=== PATIENT | male | born 1950 | race African-American/Black ===

== ENCOUNTER 2016-09-05 03:53 | Inpatient (IN) | payer BC ==
[2016-09-05] VITALS (19 sets, daily range): BP systolic 110–135; BP diastolic 69–88; PULSE 58–81; TEMP 36.6–36.8; O2SAT 95–98; Ht 177.8 cm; Wt 99.6 kg
[~2016-09-05] VITALS: Ht 177.8 cm; Wt 99.6 kg
[~2016-09-05 03:53] MED LIST: FEXO1TAB46 PO; OMEP20CA9 PO; PRD20 PO
[2016-09-05] MEDS ORDERED: ASPIRIN 81 MG CHEW PO STA (04:04)
[2016-09-05] MEDS ORDERED: NITROGLYCERIN 0.4 MG SL PER TAB CHARGE SL STA (04:04)
[2016-09-05] MEDS ORDERED: ASPIRIN 324 MG CHEW ONE (04:05)
[2016-09-05] MEDS ORDERED: NITROGLYCERIN 0.4 MG SL PER TAB CHARGE ONE (04:05)
[2016-09-05 04:18] LABS: BASO % 0.7 %; BASO ABS # 0.03 K/uL (0-0.2); COMPLETE YES; EOS % 5.2 %; HEMATOCRIT 49.8 % (42-52); IG% 0.7 %; LYMPH % 48.5 %; LYMPH ABS # 2.23 K/uL (1.2-3.4); MEAN CELL VOLUME 94.1 fL (80-100); MEAN CORPUSCULAR HEMOGLOBIN 31.6 pg (25-34); MEAN CORPUSCULAR HGB CONC 33.5 g/dl (32-36); MEAN PLATELET VOLUME 10.4 fL (7.4-10.4); MONO % 8.7 %; NEUT % 36.2 %; PLATELET COUNT 238 K/uL (130-400); RED BLOOD COUNT 5.29 M/uL (4.7-6.1)
[2016-09-05 04:27] LABS: ISTAT CREATININE 1.4 mg/dl (0.6-1.3); ISTAT HEMOGLOBIN 16.7 g/dl (14.0-18.0); ISTAT IONIZED CALCIUM 1.15 mmol/l (1.12-1.32)
[2016-09-05] MEDS ORDERED: NITROGLYCERIN OINT 2% 1GM PACKET EXT ONE (04:30)
[2016-09-05 04:35] LABS: BUN/CREATININE RATIO 9.9 (10-20); CREATININE 1.3 mg/dl (0.60-1.40); POTASSIUM 3.7 mmol/L (3.5-5.1)
[2016-09-05] MEDS ORDERED: FEXO1TAB58 PO (04:38)
[2016-09-05] MEDS ORDERED: PRLSR20 PO (04:38)
--- NOTE | 2016-09-05 04:39 | EMERGENCY ROOM VISIT NOTE ---
ED Visit Note First contact with patient: 03:58 Patient seen by me with the physician virtual assistant at 4:25 AM. Patient has EKG changes and evolution with chest pain that has decreased. Reportedly the patient's had chest pain all week. Patient has an elevated troponin 0.59. We have activated A heart alert and the physician virtual assistant has spoken with the instructor physical education. Patient has received aspirin prior and has been given nitroglycerin. Patient will need admitted for acute coronary syndrome and suspected STEMI in evolution Allergies Coded Allergies: No Known Allergies (Unverified , 09/05/16) Vital Signs Date Time Temp Pulse Resp B/P Pulse Ox O2 Delivery O2 Flow Rate FiO2 09/05/16 04:20 Room Air 09/05/16 04:16 Room Air 09/05/16 04:14 Room Air 09/05/16 03:55 36.4 64 20 172/99 97 Room Air Laboratory Results 09/05/16 04:05 Red Blood Count 5.29, Mean Corpuscular Volume 94.1, Mean Corpuscular Hemoglobin 31.6, Mean Corpuscular Hemoglobin Concent 33.5, Mean Platelet Volume 10.4, Neutrophils (%) (Auto) 36.2, Lymphocytes (%) (Auto) 48.5, Monocytes (%) (Auto) 8.7, Eosinophils (%) (Auto) 5.2, Basophils (%) (Auto) 0.7, Neutrophils # (Auto) 1.67, Lymphocytes # (Auto) 2.23, Monocytes # (Auto) 0.40, Eosinophils # (Auto) 0.24, Basophils # (Auto) 0.03 09/05/16 04:05 Test 09/05/16 04:05 09/05/16 04:10 09/05/16 04:15 White Blood Count 4.60 K/uL (4.8-10.8) Red Blood Count 5.29 M/uL (4.7-6.1) Hemoglobin 16.7 g/dL (14.0-18.0) Hematocrit 49.8 % (42-52) Mean Corpuscular Volume 94.1 fL (80-100) Mean Corpuscular Hemoglobin 31.6 pg (25-34) Mean Corpuscular Hemoglobin Concent 33.5 g/dl (32-36) Platelet Count 238 K/uL (130-400) Mean Platelet Volume 10.4 fL (7.4-10.4) Neutrophils (%) (Auto) 36.2 % Lymphocytes (%) (Auto) 48.5 % Monocytes (%) (Auto) 8.7 % Eosinophils (%) (Auto) 5.2 % Basophils (%) (Auto) 0.7 % Neutrophils # (Auto) 1.67 K/uL (1.4-6.5) Lymphocytes # (Auto) 2.23 K/uL (1.2-3.4) Monocytes # (Auto) 0.40 K/uL (0.11-0.59) Eosinophils # (Auto) 0.24 K/uL (0-0.5) Basophils # (Auto) 0.03 K/uL (0-0.2) RDW Standard Deviation 45.1 fL (36.4-46.3) RDW Coefficient of Variation 13.2 % (11.5-14.5) Immature Granulocyte % (Auto) 0.7 % Immature Granulocyte # (Auto) 0.03 K/uL (0.00-0.02) Est Creatinine Clear Calc Drug Dose 67.4 ml/min Estimated GFR () 66.8 Estimated GFR (Non- 57.7 BUN/Creatinine Ratio 9.9 (10-20) Calcium Level 9.0 mg/dl (8.5-10.1) Direct Bilirubin 0.1 mg/dl (0-0.2) Aspartate Amino Transf (AST/SGOT) 21 U/L (15-37) Alanine Aminotransferase (ALT/SGPT) 32 U/L (12-78) Albumin 4.1 gm/dl (3.4-5.0) Lipase 136 U/L (73-393) Bedside Troponin I 0.590 ng/ml (0-0.045) Bedside Hemoglobin 16.7 g/dl (14.0-18.0) Bedside Hematocrit 49 % (42-52) Bedside Sodium 143 mEq/L (135-144) Bedside Potassium 3.6 mEq/L (3.3-5.0) Bedside Chloride 103 mEq/L (101-112) Bedside Total CO2 25 mEq/l (24-31) Anion Gap 19.0 mmol/L (16-25) Bedside Blood Urea Nitrogen 13 mg/dl (7-18) Bedside Creatinine 1.4 mg/dl (0.6-1.3) Bedside Glucose (other) 115 mg/dl (70-99) Bedside Ionized Calcium (Gautam) 1.15 mmol/l (1.12-1.32) Medications Administered Medications (Trade) Dose Ordered Sig/Leia Route Start Time Stop Time Status Last Admin Dose Admin Nitroglycerin (Nitrostat Tab) 0.4 mg NOW STAT SL 09/05/16 04:04 09/05/16 04:06 DC 09/05/16 04:11 0.4 MG Aspirin (Aspirin Chew) 324 mg STK-MED ONCE .ROUTE 09/05/16 04:05 09/05/16 04:06 DC 09/05/16 04:11 324 MG Departure Information Referrals Eric Olivo D.O. (PCP) Forms IMPORTANT VISIT INFORMATION Patient Instructions My [facility]
[2016-09-05] MEDS ORDERED: NiCARDipine HCL INJ 2.5 MG/ML 10 ML AMP ONE (05:01)
[2016-09-05] MEDS ORDERED: FENTANYL CITRATE INJ 50 MCG/1 ML 2 ML VIAL ONE (05:01)
[2016-09-05] MEDS ORDERED: HEPARIN SOD (PORCINE) 1000 UNIT/ML 10 ML VIAL ONE (05:02)
[2016-09-05] MEDS ORDERED: MIDAZOLAM HCL 1 MG/ML 2ML VIAL ONE (05:02)
--- NOTE | 2016-09-05 05:09 | EMERGENCY ROOM VISIT NOTE ---
History First contact with patient: 03:58 Chief Complaint: CARDIAC ASSESSMENT Stated Complaint: LFT ARM HURTS,THREW UP,HEARTBURN,NOT FELT WELL XWK Nursing Triage Summary: Pt woke up at 2 am with heart burn and pain down left arm. Pt also vomited x1. History of Present Illness The patient is a 66 year old male who presents to the Emergency Room with complaints of epigastric discomfort that has been intermittent for the past week that woke him up out of bed with nausea and vomiting and left arm pain. He describes the pain as heartburn, 5 out of 10. Nothing makes it better or worse. Patient denies dyspnea, abdominal pain, leg pain or swelling, recent travel, prior heart disease. No recent stress test or echo. No family history of heart disease. Patient smokes a pipe daily and occasionally drinks. He last ate last night at 8 PM. Review of Systems See HPI for pertinent positives & negatives. A total of 10 systems reviewed and were otherwise negative. Past Medical/Surgical History Medical Problems: (1) No Known Active Medical Problems GERD, seasonal allergies Family History Cancer Diabetes mellitus Heart disease Hypertension Kidney disease Social History Smoking Status: Current Every Day Smoker Alcohol Use: occasionally Marital Status: Housing Status: lives with family Occupation Status: employed Current/Historical Medications Scheduled Fexofenadine-Pseudoephedrine (Summer-D 24 Hour Allergy), 1 TAB PO DAILY Omeprazole (Prilosec), 20 MG PO BID Allergies Coded Allergies: No Known Allergies (Unverified , 09/05/16) Physical Exam Vital Signs Date Time Temp Pulse Resp B/P Pulse Ox O2 Delivery O2 Flow Rate FiO2 09/05/16 05:00 113/74 09/05/16 04:55 117/67 09/05/16 04:53 69 18 94 Nasal Cannula 2.0 09/05/16 04:50 102/65 09/05/16 04:45 88/57 09/05/16 04:40 90/61 09/05/16 04:23 77 18 95 Nasal Cannula 2.0 09/05/16 04:20 Room Air 09/05/16 04:16 Room Air 09/05/16 04:14 Room Air 09/05/16 04:12 146/100 09/05/16 03:55 36.4 64 20 172/99 97 Room Air Physical Exam VITALS: Vitals are noted on the nurse's note and reviewed by myself. Vital signs hypertensive GENERAL: Pleasant male who appears in mild distress, diaphoretic SKIN: The skin was without rashes, erythema, edema, or bruising. There is no tenting of the skin. Capillary reflex less than 2 seconds. HEAD: Normocephalic atraumatic. EARS: External auditory canals clear, tympanic membranes pearly rodriguez without erythema or effusion bilaterally. EYES: Pupils equal round and reactive to light and accommodation. Conjunctivae without injection, sclerae without icterus. Extraocular movements intact. NOSE: Patent, turbinates without inflammation or discharge. MOUTH: Mucous membranes moist. Pharynx without erythema or exudate. Uvula midline. Airway patent. Tongue does not deviate. NECK: Supple without nuchal rigidity. No lymphadenopathy. No thyromegaly. Cervical spine is nontender. No JVD. HEART: Regular rate and rhythm without murmurs gallops or rubs. LUNGS: Clear to auscultation bilaterally without wheezes, rales or rhonchi. No dullness to percussion. No retractions or accessory muscle use. ABDOMEN: Positive bowel sounds x 4. Normal tympanic percussion. Soft, nontender, without masses or organomegaly. Baron sign negative. No guarding or rebound tenderness. MUSCULOSKELETAL: No muscle atrophy, erythema, or edema noted. NEURO: Patient was alert and oriented to person place and time. Normal sensation to light and sharp touch. No focal neurological deficits. Medical Decision & Procedures Laboratory Results 09/05/16 04:05 Red Blood Count 5.29, Mean Corpuscular Volume 94.1, Mean Corpuscular Hemoglobin 31.6, Mean Corpuscular Hemoglobin Concent 33.5, Mean Platelet Volume 10.4, Neutrophils (%) (Auto) 36.2, Lymphocytes (%) (Auto) 48.5, Monocytes (%) (Auto) 8.7, Eosinophils (%) (Auto) 5.2, Basophils (%) (Auto) 0.7, Neutrophils # (Auto) 1.67, Lymphocytes # (Auto) 2.23, Monocytes # (Auto) 0.40, Eosinophils # (Auto) 0.24, Basophils # (Auto) 0.03 09/05/16 04:05 Test 09/05/16 04:05 09/05/16 04:10 09/05/16 04:15 White Blood Count 4.60 K/uL (4.8-10.8) Red Blood Count 5.29 M/uL (4.7-6.1) Hemoglobin 16.7 g/dL (14.0-18.0) Hematocrit 49.8 % (42-52) Mean Corpuscular Volume 94.1 fL (80-100) Mean Corpuscular Hemoglobin 31.6 pg (25-34) Mean Corpuscular Hemoglobin Concent 33.5 g/dl (32-36) Platelet Count 238 K/uL (130-400) Mean Platelet Volume 10.4 fL (7.4-10.4) Neutrophils (%) (Auto) 36.2 % Lymphocytes (%) (Auto) 48.5 % Monocytes (%) (Auto) 8.7 % Eosinophils (%) (Auto) 5.2 % Basophils (%) (Auto) 0.7 % Neutrophils # (Auto) 1.67 K/uL (1.4-6.5) Lymphocytes # (Auto) 2.23 K/uL (1.2-3.4) Monocytes # (Auto) 0.40 K/uL (0.11-0.59) Eosinophils # (Auto) 0.24 K/uL (0-0.5) Basophils # (Auto) 0.03 K/uL (0-0.2) RDW Standard Deviation 45.1 fL (36.4-46.3) RDW Coefficient of Variation 13.2 % (11.5-14.5) Immature Granulocyte % (Auto) 0.7 % Immature Granulocyte # (Auto) 0.03 K/uL (0.00-0.02) Est Creatinine Clear Calc Drug Dose 67.4 ml/min Estimated GFR () 66.8 Estimated GFR (Non- 57.7 BUN/Creatinine Ratio 9.9 (10-20) Calcium Level 9.0 mg/dl (8.5-10.1) Total Bilirubin 0.4 mg/dl (0.2-1) Direct Bilirubin 0.1 mg/dl (0-0.2) Aspartate Amino Transf (AST/SGOT) 21 U/L (15-37) Alanine Aminotransferase (ALT/SGPT) 32 U/L (12-78) Alkaline Phosphatase 60 U/L (45-117) Total Protein 7.5 gm/dl (6.4-8.2) Albumin 4.1 gm/dl (3.4-5.0) Lipase 136 U/L (73-393) Bedside Troponin I 0.590 ng/ml (0-0.045) Bedside Hemoglobin 16.7 g/dl (14.0-18.0) Bedside Hematocrit 49 % (42-52) Bedside Sodium 143 mEq/L (135-144) Bedside Potassium 3.6 mEq/L (3.3-5.0) Bedside Chloride 103 mEq/L (101-112) Bedside Total CO2 25 mEq/l (24-31) Anion Gap 19.0 mmol/L (16-25) Bedside Blood Urea Nitrogen 13 mg/dl (7-18) Bedside Creatinine 1.4 mg/dl (0.6-1.3) Bedside Glucose (other) 115 mg/dl (70-99) Bedside Ionized Calcium (Gautam) 1.15 mmol/l (1.12-1.32) Medications Administered Medications (Trade) Dose Ordered Sig/Leia Route Start Time Stop Time Status Last Admin Dose Admin Nitroglycerin (Nitrostat Tab) 0.4 mg NOW STAT SL 09/05/16 04:04 09/05/16 04:06 DC 09/05/16 04:11 0.4 MG Aspirin (Aspirin Chew) 324 mg STK-MED ONCE .ROUTE 09/05/16 04:05 09/05/16 04:06 DC 09/05/16 04:11 324 MG ED Course Prior records/ancillary studies reviewed. Triage Nursing notes reviewed. Additional history obtained from family. The patient's history was concerning for chest pain. Differential diagnosis: Etiologies such as cardiac ischemia, aortic dissection, pulmonary embolism, pneumonia, pneumothorax, musculoskeletal, infections, pericarditis, myocarditis , esophageal rupture, gastrointestinal, as well as others were entertained. Physical examination: As above. ER treatment provided: Aspirin, nitroglycerin On reassessment the patient felt better. Diagnostic interpretation by me: The electrocardiogram was ST elevation in the anteroseptal leads with repeat EKG with well and sign concerning for wellens signs and evolving AK and heart alert was initiated The labs revealed elevated troponin. Creatinine 1.3 Imaging studies: Chest x-ray no acute consolidation, pneumothorax or free air per my interpretation Consultation: A consultation was placed with the product safety expert, Dr. Madden while we are awaiting the 3rd EKG and recommends heart alert and this was initiated hospitalist. The case was discussed and diagnostics were reviewed. Heart alert was initiated. Dr. Lafleur came in and evaluated the patient and took him to the [facility]. Exam and history seem consistent with STEMI. Patient was given aspirin nitroglycerin. His pain somewhat improved. Blood pressure improved. Patient is agreeable to treatment plan of cutting His dictation. He states that need to be transferred he would like to go to [facility]. No recent surgeries. Last ate at 8 PM. No drug allergies. He is a full code. Patient does smoke a pipe and drinks occasional alcohol.By the evaluation outlined above emergent etiologies such as aortic dissection, pulmonary embolism, pneumonia, pneumothorax, infections, pericarditis, myocarditis, gastrointestinal , as well as others were deemed relatively unlikely. Patient was reassessed multiple times. He remained stable throughout his stay. Pacer pads were placed. The pt informed about the findings as listed above. All questions were answered and pleased with the treatment. Case reviewed with my attending. Medical Decision as above Impression Primary Impression: STEMI (ST elevation myocardial infarction) Critical Care I have personally spent greater than 60 minutes of critical care time in the direct management of this patient. This includes bedside care, interpretation of diagnostic studies, and testing, discussion with consultants, patient, and family members, and other required patient management activities. This 30 minutes is in excess of all separately billable procedures. Departure Information Dispostion Being Evaluated By Surgeon Condition FAIR Referrals Eric Olivo D.O. (PCP) Forms IMPORTANT VISIT INFORMATION Patient Instructions My [facility] Problem Qualifiers Primary Impression: STEMI (ST elevation myocardial infarction) Involved coronary artery: unspecified coronary artery Qualified Codes: I21.3 - ST elevation (STEMI) myocardial infarction of unspecified site
[2016-09-05] MEDS ORDERED: EPTIFIBATIDE 0.75 MG/ML 75MG VIAL IV ONE (06:18)
[2016-09-05] MEDS ORDERED: EPTIFIBATIDE 2 MG/ML 10 ML VIAL IV ONE (06:18)
[2016-09-05] MEDS ORDERED: CLOPIDOGREL BISULFATE 300 MG TAB PO ONE (06:19)
[2016-09-05] MEDS ORDERED: PANTOprazole SOD 40 MG TAB PO STA (06:41)
[2016-09-05] MEDS ORDERED: EPTIFIBATIDE BOLUS / DRIP IV ONE (06:45)
[2016-09-05] MEDS ORDERED: LORAZEPAM INJ 0.5 MG in SYRINGE 0 ML IV PRN (06:45)
[2016-09-05] MEDS ORDERED: MoRPHine SULFATE 2 MG/ML CARP IV PRN (06:45)
[2016-09-05] MEDS ORDERED: ATROPINE SULFATE 0.1 MG/ML 5ML SYR IV PRN (06:45)
[2016-09-05] MEDS ORDERED: ACETAMINOPHEN 325 MG TAB PO PRN ×2 (06:45→07:00)
[2016-09-05] MEDS ORDERED: ONDANSETRON INJ 2 MG/ML 2 ML VIAL IV PRN (06:45)
[2016-09-05] MEDS ORDERED: NITROGLYCERIN 0.4 MG SL PER TAB CHARGE SL PRN (07:00)
[2016-09-05] MEDS ORDERED: LORAZEPAM 2 MG/ML 1 ML VIAL IV PRN (07:00)
[2016-09-05] MEDS: SODIUM CHLORIDE 0.9% 1000ML 1,000 ML IV SCH ×2 (07:06→17:03)
--- NOTE | 2016-09-05 07:09 | DIAGNOSTIC IMAGING REPORT ---
CHEST ONE VIEW PORTABLE CLINICAL HISTORY: CHEST PAIN dyspnea COMPARISON STUDY: No previous studies for comparison. FINDINGS: The bones soft tissues and hemidiaphragms are normal. The cardiomediastinal silhouette is normal. The lungs are clear. The pulmonary vasculature is normal. IMPRESSION: Negative chest. Electronically signed by: Jatin Wayne M.D. 09/05/2016 7:07 AM Dictated Date/Time: 09/05/2016 7:07 AM
--- NOTE | 2016-09-05 07:17 | Procedure Note ---
Pre-Mod Sedation Assessment General Date of Moderate Sedation: September 05, 2016. Vital Signs: Vital Signs Past 12 Hours Date Time Temp Pulse Resp B/P Pulse Ox O2 Delivery O2 Flow Rate FiO2 09/05/16 07:00 66 18 110/75 97 Room Air 09/05/16 06:45 71 14 117/77 96 Room Air 09/05/16 06:29 36.8 67 14 114/69 95 Room Air 09/05/16 06:20 70 16 125/73 95 Room Air 09/05/16 06:10 70 16 120/73 95 Room Air 09/05/16 05:00 113/74 09/05/16 04:55 117/67 09/05/16 04:53 69 18 94 Nasal Cannula 2.0 09/05/16 04:50 102/65 09/05/16 04:45 88/57 09/05/16 04:40 90/61 09/05/16 04:23 77 18 95 Nasal Cannula 2.0 09/05/16 04:20 Room Air 09/05/16 04:16 Room Air 09/05/16 04:14 Room Air 09/05/16 04:12 146/100 09/05/16 03:55 36.4 64 20 172/99 97 Room Air Review Cardiovascular: regular rate, rhythm, no edema, no gallop, no JVD, normal peripheral pulses Abdomen: normal bowel sounds, non tender Lungs: lungs clear Pre-Sedation Airway Assessment Oral Cavity: WNL Able to Visualize Vocal Cords: No Short Thick Neck: No Hx of Sleep Apnea: No Smoking Status: Current Every Day Smoker Mallampati Classification: Class III Procedure Planning Contraindications-for Mod Sed: None Yes Notes The planned sedation has been discussed with the patient and consent obtained. I have identified the patient, determined the appropriateness of sedation and have assessed the patient immediately prior to the procedure. All medicine(s) and interventions are by my order.
--- NOTE | 2016-09-05 07:17 | Procedure Note ---
Post-Mod Sedation Assessment General Date of Moderate Sedation September 05, 2016. Vital Signs: Vital Signs Past 12 Hours Date Time Temp Pulse Resp B/P Pulse Ox O2 Delivery O2 Flow Rate FiO2 09/05/16 07:00 66 18 110/75 97 Room Air 09/05/16 06:45 71 14 117/77 96 Room Air 09/05/16 06:29 36.8 67 14 114/69 95 Room Air 09/05/16 06:20 70 16 125/73 95 Room Air 09/05/16 06:10 70 16 120/73 95 Room Air 09/05/16 05:00 113/74 09/05/16 04:55 117/67 09/05/16 04:53 69 18 94 Nasal Cannula 2.0 09/05/16 04:50 102/65 09/05/16 04:45 88/57 09/05/16 04:40 90/61 09/05/16 04:23 77 18 95 Nasal Cannula 2.0 09/05/16 04:20 Room Air 09/05/16 04:16 Room Air 09/05/16 04:14 Room Air 09/05/16 04:12 146/100 09/05/16 03:55 36.4 64 20 172/99 97 Room Air Review - Discharge Criteria Vital Signs Stable: Yes Alert/Oriented/Conversant: Yes Returned to Baseline Mental St: Yes Nausea Absent/Minimal: Yes Pain/Discomfort/Absent/Minimal: Yes Normal/Baseline Respirations: Yes Active Bleeding?: No Pt Received D/C Instructions: N/A Prescriptions Given: None Specific Proced. D/C Criteria Distal Pulses Present (Cardiac: Yes Groin site assessed-Card Cath: N/A Voided Prior To Discharge: N/A Discharged Patients Adult Escort/Transportation: N/A
[2016-09-05 07:18] LABS: BASO % 0.4 %; BASO ABS # 0.02 K/uL (0-0.2); HEMATOCRIT 48.3 % (42-52); IG% 0.2 %; LYMPH % 17.4 %; LYMPH ABS # 0.94 K/uL (1.2-3.4); MEAN CELL VOLUME 93.6 fL (80-100); MEAN CORPUSCULAR HEMOGLOBIN 30.2 pg (25-34); MEAN PLATELET VOLUME 10.5 fL (7.4-10.4); PLATELET COUNT 238 K/uL (130-400); RED BLOOD COUNT 5.16 M/uL (4.7-6.1); WHITE BLOOD COUNT 5.41 K/uL (4.8-10.8)
[2016-09-05 07:24] LABS: COMPLETE YES; MEAN CORPUSCULAR HGB CONC 32.3 g/dl (32-36)
--- NOTE | 2016-09-05 07:25 | Cardiac Catheterization ---
Procedure Note Procedure Date September 05, 2016. Pre-Procedure Diagnosis STEMI AUC Score 9 Post-Procedure Diagnosis Severe CAD, Successful PCI, Decreased LV Systolic Function, Elevated Intracardiac Pressures Procedure(s) Performed Coronary Angiography, Left Heart Cath, PTCA, Drug Eluting Stent Jig Mill Operator Dr. Lafleur General Distillery Worker(s) LIZ Garvey Estimated Blood Loss 30 ml Medication(s) Clopidogrel (600 mg PO post PCI), Fentanyl, Heparin, Integrilin, Nicardipine ( intra arterial and intracoronary), Versed, Lidocaine 1% Summary of Findings Clinical indications: Acute anterior apical myocardial infarction on electrocardiogram. Catheterization site: 6 [place]ic glide sheath right radial artery. Equipment: 6 [place]ic EBU 3.75 guide catheter, 6 [place]ic JR4 diagnostic catheter, 6 [place]ic pigtail diagnostic catheter, XYZE [place] guidewire, Vedantu Whisper guidewire, XYZE Sprinter 2.5 x 12 millimeter balloon dilatation catheter, Medtronic Resolute integrity 3.5 x 18 millimeter drug-eluting stent. Protocol: Left coronary angiography was 1st performed using the guide catheter . This revealed a subtotal mid LAD occlusion. Intravenous heparin and Integrilin were administered. Therapeutic activated clotting time documented. It was 1st attempted to pass the [place] guidewire cross the severe mid LAD stenosis. This wire would not cross the stenosis. The stenosis was successfully crossed using the Whisper guidewire. A total 4 balloon inflations were then performed to the mid LAD to maximum pressure of 8 atmospheres and maximum duration of 10 seconds. This stent was deployed in the mid LAD at a pressure of 9 atmospheres for duration of 45 seconds. A 2nd balloon inflation was performed with the stent delivery balloon to a pressure of 10 atmospheres for duration of 20 seconds.Follow up left coronary angiography then performed. RCA angiography, left heart catheterization, and left ventricular angiography then performed. Hemostasis: Terumo TR band. Complications: none. Findings: Mild coronary artery calcifications. Right dominant circulation. The left main was a very large caliber vessel with a distal 10 percent stenosis. It gave rise to large caliber left anterior descending and medium caliber left circumflex coronary arteries. The proximal LAD had 10 percent stenosis. Following the origin of a long medium caliber 1st diagonal artery the early mid LAD had a long 20-30 percent stenosis. This was before the origin of a prominent septal food demonstrator. The ostium of the 1st diagonal had a 30 percent stenosis. following the septal there is a subtotal mid LAD stenosis. LUKE 1 flow past the stenosis into a small segment of mid LAD. Following passage of a guidewire there is improved flow into the mid LAD. Following PTCA LUKE 3 flow in the LAD. Following stent deployment LUKE 3 flow throughout the LAD and its branches. Step-up and step-down prior to and distal to the stent respectively. Residual stenosis at the stent site 0 percent. No dissection, thrombus, perforation, or distal embolic event. The latter mid LAD gave rise to small caliber 2nd diagonal artery without obstructive disease. Remainder of the mid and distal LAD had no obstructive disease. The distal LAD wraps around the apex as a small-caliber vessel. The very proximal left circumflex gave rise to a long medium caliber ramus type branch which had no obstructive disease. The mid circumflex gave rise to a small to medium caliber marginal artery without obstructive disease. The circumflex then continued on to give rise to a very small caliber posterolateral artery. Following the origin of this vessel distal circumflex had 30 percent stenosis. Collateral flow was present from the LAD and left circumflex to the right posterior descending and posterolateral arteries. These vessels were visualized small caliber vessels. A small segment of distal RCA was also visualize the of this collateral flow. The RCA itself was totally occluded immediately following the origin of the conus branch. No right to right collateral flow present. Left ventricular angiography performed from the 30 degree LOO projection using a hand injection of contrast dye revealed the posterobasal and anterobasal segments as well as diaphragmatic segments to contract normally. The apex and anterolateral segments were hypokinetic. LV ejection fraction 55 percent. No mitral regurgitation. Conclusion: Subtotal early mid LAD occlusion. Successful intervention to LAD occlusion. Deployment of drug-eluting stent. No residual stenosis at the stent site. LUKE 3 flow in the LAD following intervention. Mild atherosclerotic disease of the left circumflex coronary artery. Total very proximal RCA occlusion. Left to right collateral flow. Normal overall LV systolic function. Anterior and apical hypokinesis. Plan: Admit to intensive care unit. Intravenous Integrilin for 18 hours. Clopidogrel 600 mg PO post PCI. Hemodynamics Rest Ao: 127/71/96 mm Hg Final Ao: 112/66/89 mm Hg LV: 115/26 mm Hg Recommendations Medical therapy and/or Counseling, PCI without planned CABG Specimens None Radiation Exposure (mGy) 3155 Contrast (mls) 240 ml Viisipaque Fluids (cc crystalloids) 105 Drains none Anesthesia IV versed,fentanyl. Lidocaine 1 % Procedural Complication(s) None Disposition ICU ACC Data Cardiac Status Clinical evaluation leading to the procedure CAD Presntation: STEMI Anginal Classification: CCS IV Heart Failure: No Cardiogenic Shock w/in 24Hrs: No Cardiac Arrest w/in 24Hrs: No Imaging studies past 6 months: No Stress studies past 6 months: No Standard Exercise Stress Test: No Stress Echocardiogram: No Stress Testing w/SPECT MPI: No Cardiac CTA: No Coronary Anatomy Dominant: Right Left Main (% Stenosis): Distal (10) LAD (% Stenosis): Proximal (10), Mid (20-30,99) D1 (% Stenosis): Ostial (30) D2 (% Stenosis): Normal Circumflex (% Stenosis): Distal (30), Normal OM1 (% Stenosis): Normal RCA (% Stenosis): Proximal (100) Ramus (% Stenosis): Normal Left Ventricular Angiography EF (%): 55 Wall Motion: Inferior (Normal), Apical (Hypokinetic), Anterior (Hypokinetic) Aortography Aortic Regurgitation: None Diagnostic Physician's Name: Saul Lafleur M.D. Status: Emergency Closure Device Percutaneous Entry Location: Radial Closure Device: Radial Band Recommendations: Medical therapy and/or Counseling, PCI without planned CABG PCI Indication: Immediate PCI for STEMI Reason For Delay in PCI: Difficulty crossing culprit lesion Lesion Segment Name: MId LAD Culprit Artery: Yes Stenosis Prior to Rx (%): 99 Chronic Total Occlusion: No IVUS: No FFR: No Pre-Procedure LUKE Flow: 1 Previously Treated Lesion: No Lesion Complexity: Non-High/Non-C Lesion Length (mm): 12 Thrombus Present: Yes Bifurcation Lesion: No Guidewire Across Lesion: Yes Guidewire: Stenosis Post-Procedure (%): 0 Post-Procedure LUKE Flow: 3 Device(s) Deployed: Yes Type of Device(s): Medtronic Resolute 3.5 X 18 mm AVNI Intraprocedure Events Significant Dissection: No Perforation: No
--- NOTE | 2016-09-05 07:38 | HISTORY & PHYSICAL EXAMINATION ---
DATE OF ADMISSION: 09/05/2016 CHIEF COMPLAINT: Chest pain and found to have ST elevated MD. HISTORY OF PRESENT ILLNESS: This is a 66-year-old male with past medical history significant for BPH, GERD, comes with chest pain. The patient states since last 1 week he is having epigastric pain no radiation and was taking Prilosec to relieve his pain. The pain used to get better when he was resting.He mowed his grass yesterday and he had no exacerbation pain. He thought it was getting better, but last night he woke up with severe lower chest pain. He never had this kind of pain and was radiating to his left arm and he has nausea and vomited and he came to In the ER. In the ER he was found to have ST elevated MD in leads V2, V3, V4 and was taken to [facility] and found to have mid LAD complete occlusion, status post stent placement. Currently chest pain almost resolved, hemodynamically stable. Denies any shortness of breath, no cough, no fever, no chills. No headaches, no blurred vision, no abdominal pain. Normal bowel and bladder movements. Appetite is okay. Otherwise, patient is healthy and is not on any medications except Prilosec. ALLERGIES: No known drug allergies. PAST MEDICAL HISTORY: As mentioned above. PAST SURGICAL HISTORY: Colonoscopy, EGD with biopsies. MEDICATIONS: The patient is on omeprazole 20 mg p.o. b.i.d., Summer 1 tablet p.o. 2 times a day as needed. FAMILY HISTORY: Significant for mother had diabetes. Son has asthma. Sister has heart disease. SOCIAL HISTORY: , smokes a pipe. Drinks 1-2 glasses of Rum every day. No drug use. REVIEW OF SYMPTOMS: As per HPI. Rest of review of systems negative. PHYSICAL EXAMINATION: GENERAL: The patient is moderate build, not in distress. VITAL SIGNS: Temperature 36.4, pulse 71, respiratory rate 14, blood pressure 117/77, oxygen 96% on room air. HEENT: No pallor, no icterus. NECK: No JVD, no neck masses, no carotid bruits. CARDIOVASCULAR: S1, S2 heard, regular rate and rhythm, no murmur, no gallop. RESPIRATORY SYSTEM: Clear to auscultation bilaterally. No wheezing, no crackles. ABDOMEN: Soft, bowel sounds present. Nontender. No distention. CENTRAL NERVOUS SYSTEM: Cranial nerves alert and oriented x3. Moves extremities. EXTREMITIES: No edema. No erythema. Cardiac catheterization right wrist site. No drainage seen. LABORATORIES: WBC 4.6, hemoglobin 16.7, hematocrit 14.8, platelets 238. Sodium 143, potassium 3.6, chloride 103, CO2 25, BUN 13, creatinine 1.4, serum glucose 115, ioniz calcium 1.15. Point of care troponin 0.5. Chest x-ray no acute findings seen. EKG: Sinus rhythm with rate of 76, ST elevations seen in leads V2, V3 and V4. ASSESSMENT AND PLAN: 66-year-old male who presents with ST elevated myocardial infarction. 1. ST elevated MD, heart alert called and status post cardiac catheterization and was found to have complete occlusion of the mid LAD and status post stent to the LAD. The patient's symptoms almost resolved. Post-cardiac catheterization care and cardiac medications as per cardiology. Close monitor in the ICU. Will check fasting lipid profile and hba1c levels. 2. GERD. Continue Prilosec. 3. DVT prophylaxis. SCDs for now. 4. Disposition: Close monitor in the ICU. Level 1 full code. MTDD
[2016-09-05] MEDS: LISINOPRIL 5 MG TAB PO SCH (07:55)
[2016-09-05] MEDS: ATORVASTATIN 40 MG TAB PO SCH (07:56)
[2016-09-05] MEDS: METOPROLOL TARTRATE 25 MG TAB PO SCH ×2 (07:56→19:19)
[2016-09-05 08:12] LABS: BLOOD UREA NITROGEN 11 mg/dl (7-18); BUN/CREATININE RATIO 11.7 (10-20); CALCIUM 8.7 mg/dl (8.5-10.1); CARBON DIOXIDE 25 mmol/L (21-32); CHLORIDE 109 mmol/L (98-107); CHOLESTEROL 207 mg/dl (0-200); CHOLESTEROL/HDL RATIO 5.8; CKMB/CK RATIO 5.8 (0-3.0); CREATININE 0.96 mg/dl (0.60-1.40); GLUCOSE 108 mg/dl (70-99); HDL CHOLESTEROL 36 mg/dl; POTASSIUM 4.2 mmol/L (3.5-5.1); SODIUM 142 mmol/L (136-145); TRIGLYCERIDES 63 mg/dl (0-150); VERY LOW DENSITY LIPOPROT CALC 13 mg/dl
[2016-09-05] MEDS ORDERED: NON-FORMULARY MEDICATION (Omeprazole (Prilosec) 20 MG) PO SCH (09:00)
[2016-09-05] MEDS ORDERED: CLOPIDOGREL BISULFATE 75 MG TAB PO SCH (09:00)
--- NOTE | 2016-09-05 09:09 | CARDIOLOGY CONSULTATION ---
DATE OF CONSULTATION: 09/05/2016 PRIMARY PHYSICIAN: Eric Olivo DO. REFERRING PHYSICIAN: Juancho Joiner MD CONSULTING PHYSICIAN: Saul Lafleur MD HISTORY OF PRESENT ILLNESS: The patient is a 66-year-old -[place] male. No prior history of heart disease. No history of CAD risk factors by his account and his 's account. He was in his usual state of health until approximately 2 weeks ago when he began to develop dyspnea on exertion, walking up two flights of stairs. After strenuous exertion, he also experienced a lower retrosternal burning discomfort. He thought that this was secondary to GE reflux and indigestion. The epigastric and lower retrosternal discomfort would resolve with rest within 10 minutes. He was not experiencing any rest episodes. Over the 2 weeks, the discomfort was more easily precipitated by exertion. This is also increased in intensity. Yesterday, he was actually able to perform yard work such as mowing his lawn without any discomfort. He went to bed last night. He woke this morning at approximately 02:33 a.m. with severe lower retrosternal epigastric burning discomfort. He also had an aching pain in his left forearm. He had nausea and vomiting. He denies dyspnea or diaphoresis. He subsequently came to the Emergency Department for evaluation. Electrocardiogram revealed ST segment elevations in leads V1-V3. Heart alert was called. The patient was evaluated by me in the Emergency Department. After acquisition of informed consent, he was brought emergently to the cardiac catheterization lab for cardiac catheterization and possible coronary intervention. Cardiac catheterization was performed via a 6-Irish sheath in the right radial artery. This revealed a subtotal mid LAD occlusion. LUKE-1 flow past the site of occlusion into a small segment of the mid LAD. Mild atherosclerotic disease at the proximal LAD. No significant atherosclerotic disease of the left circumflex. The very proximal circumflex gave rise to a long ramus type branch. The mid segment of the circumflex gave rise to a small caliber marginal artery. The very distal circumflex after a very small caliber posterolateral branch had a 30% stenosis. The left coronary artery supplied left to right collateral flow to the right posterior descending and posterolateral arteries. A small segment of the distal RCA was visualized via this collateral flow. PTCA was performed to the mid LAD occlusion with a 2.5 x 12-mm balloon. LUKE-3 flow was stopped in the distal LAD. A 3.5 x 18-mm Medtronic Resolute Integrity drug-eluting stent then deployed in the mid LAD. Two inflations performed with the stent delivery balloon. Following stent deployment, the residual stenosis at the stent site was 0%. There was a step up and step down prior to and distal to the stent respectively. No dissection, thrombus, perforation, or distal embolic event. LUKE-3 flow into the LAD and all of its branches. Right coronary angiography was then performed and revealed to be totally occluded in its very proximal segment after the origin of the conus branch. Left ventricular angiography post-PCI revealed the inferior wall to contract normally. The anterior segment and apical segment of the left ventricle were hypokinetic to severely hypokinetic. LV ejection fraction approximately 55%. No mitral regurgitation noted. Intravenous heparin and Integrilin were administered prior to intervention. Therapeutic activated clotting time was documented. Following jew of flow into the LAD, the patient's chest discomfort and epigastric discomfort completely resolved. At his completion of procedure, he had no anginal type pains. No chest or arm discomfort. He was hemodynamically stable throughout the procedure. At the completion of procedure, the right radial artery sheath was removed and hemostasis was obtained with application of a [email or web address] TR band. PAST MEDICAL HISTORY: 1. GE reflux disease. 2. History of orbital cellulitis, requiring hospital admission on 02/23/2015. 3. He denies a history of hypertension, diabetes mellitus, or dyslipidemia. MEDICATIONS AT TIME OF ADMISSION: Omeprazole 20 mg b.i.d. ALLERGIES: No known drug allergies. FAMILY HISTORY: He denies any family history of coronary artery disease. SOCIAL HISTORY: The patient lives with his in [place]. He smokes a pipe. He does not smoke cigarettes. Occasional use of alcohol. Two adult sons. One grandchild. He works at [employer] in the [employer] office. REVIEW OF SYSTEMS: 1. As above. 2. No cerebrovascular or peripheral vascular complaints. 3. No bleeding complaints. 4. No pulmonary or urinary complaints. 5. No fevers or chills. 6. No unusual malaise or fatigue prior to 2 weeks ago. For the past 2 weeks, decrease in exercise tolerance and stamina. PHYSICAL EXAMINATION: GENERAL: In the Emergency Department, the patient was in no apparent distress. VITAL SIGNS: In the Emergency Department revealed oral temperature 36.4, pulse 64, blood pressure 172/99, and pulse oximetry on room air 97%. HEAD: Normal. EYES: Pupils equal and round. Anicteric. Conjunctivae normal. No xanthelasma. NECK: No jugular venous distension. Carotids 2/2 bilaterally. Normal upstroke. No bruits. LUNGS: Clear. Normal respiratory effort. No rales or wheezes. HEART: PMI not palpable. No lifts or heaves. Regular rate and rhythm. S1 and S2 normal. No S3 or S4. No murmur or rub. ABDOMEN: Soft. Nontender. No palpable masses or organomegaly. No bruits. Normal bowel sounds. EXTREMITIES: No pretibial edema. No cyanosis or clubbing. NEUROLOGIC: Alert and oriented x3. Motor grossly intact. PSYCHIATRIC: Affect normal. Chest x-ray performed in the Emergency Department and reviewed by me without heart failure or infiltrate. Electrocardiogram in the Emergency Department with ST segment elevations in leads V1-V5. Post-PCI electrocardiogram with sinus rhythm, PACs, ST segment elevations in V1-V5. Deepening T-wave inversions in V1-V5 compared to earlier electrocardiogram. LABORATORY DATA: Pre-PCI with hemoglobin 16.7 and platelet count 238. Post-PCI and post-administration of Integrilin hemoglobin 15.6 and platelet count 238. WBC post-PCI 5.41. Baseline INR was 0.9. Activated clotting times during the procedure were 312. Metabolic profile, pre-PCI with sodium 144, potassium 3.7, chloride 108, carbon dioxide 29, BUN 13, and creatinine 1.30. AST and ALT normal. Random glucose 117. Point of care troponin was 0.590. ASSESSMENT: 1. Acute anterior apical myocardial infarction secondary to subtotal mid LAD occlusion. 2. Successful emergency intervention to the mid LAD occlusion. Deployment of a 3.5 x 18-mm drug-eluting stent. No residual stenosis at the stent site. No coronary, cardiac, or vascular complications noted thus far. Procedure performed via right radial artery. 3. Total very proximal RCA occlusion. This appears to be old and chronic. Extensive left to right collaterals to the right posterior descending and posterolateral arteries. Normal inferior wall motion on LV angiography. 4. Good overall LV systolic function. Anterior and apical severe hypokinesis to akinesis. 5. The patient denies a history of any coronary artery disease risk factors of hypertension, diabetes mellitus, dyslipidemia, or family history of coronary artery disease. He does smoke pipe. Suspect that he does have dyslipidemia. 6. No evidence of heart failure. 7. No arrhythmias. 8. Gastroesophageal reflux disease. PLAN: 1. Admit to the intensive care unit. 2. Serial cardiac enzymes and electrocardiograms. 3. Echocardiogram today. Further assess LV wall motion. 4. Check lipid profile and direct LDL. 5. Check hemoglobin A1c. 6. Intravenous Integrilin 2 mcg per kilogram per minute for 18 hours. 7. Aspirin and clopidogrel or an alternative antiplatelet agent for 1 year. This would be a minimum. Dual antiplatelet therapy thereafter as tolerated. He should be on aspirin therapy indefinitely. 8. We will start atorvastatin 80 mg daily. We will start low dose metoprolol 12.5 mg b.i.d. Increase dose as tolerated by heart rate. 9. Lisinopril 5 mg daily. 10. Refer to cardiac rehabilitation. The above assessment and recommendations were discussed by me with Dr. Joiner. LAUREN
--- NOTE | 2016-09-05 09:31 | Critical Care Consultation ---
Critical Care Consultation Date of Consultation: September 05, 2016. Attending Physician: Roslyn Jha M.D. Reason for Consultation: Post care management PCI with AVNI to the LAD History of Present Illness Attending: Dr. Ocampo 66 yo male admitted overnight for chest pain. Heart alert called and patient urgently taken to the cardiac laboratory secretary. Intervention included PCI with AVNI to the LAD by Dr. Lafleur. Integrillin gtt started at 23:50 09/04/16. Patient presented to the emergency department and heart alert was initiated as the patient was found persistent ST segment elevation through multiple leads. Patient admitted to ICU room 110 early this morning after cardiac catheterization with deployment of drug-eluting stent to the mid LAD secondary to 99% occlusion. Integrilin drip was initiated status post catheterization. Post catheterization echocardiogram pending. Patient reports a history of waxing and waning epigastric abdominal discomfort over the past 2 weeks. He initially associated this with his known history of GERD for the past several years. Despite his complaints of exertional discomfort in his epigastrium, he had yet to seek evaluation until early this morning. At approximately 2:30 AM, he was awoken by persistent epigastric discomfort with an associated "odd" sensation to the LEFT wrist. This concerned the patient prompting evaluation in the emergency setting. During the episode of discomfort, he denied any associated headaches, dizziness, lightheadedness, blurry vision, double vision, tinnitus, palpitations, or shortness of breath. He did use Marybeth-Florence which did not resolve his symptoms , but did cause him to vomit which he reports occurs every time he uses this medication. There was no blood in the vomit. He does report a history of prior stress test approximately 15 years ago which preceded his diagnosis of GERD for which he has been treated since. He has had no further cardiac evaluation over the past 15 years. The patient is currently pain-free. He denies any current symptoms of headaches, dizziness, chest pain, palpitations, short of breath, nausea, hematemesis, hematochezia, melena, hematuria, or dysuria. In addition to his recent complaints of epigastric discomfort, the patient also complains of some discomfort to the RIGHT Achilles which he equates to wearing dress shoes for an extended period of time. He denies any trauma to the area. He and his family had recently traveled to and from [place] by car over the weekend. He denies any leg/calf swelling, shortness of breath, or claudication. He denies any family history of blood clot/bleeding disorders. Patient's family history is essentially noncontributory. He did have a sister who had what seems to be a congenital heart defect which was corrected with open heart surgery several years ago at [facility] when she was 20 years old. His mother did pass away of a CVA in her mid 70s. He does have a sister with a known history of diabetes. Patient admits to drinking approximately 2 glasses of red wine nightly and occasional rum. He does smoke a pipe daily. He denies any other substance or illicit drug use. Past Medical/Surgical History Medical Problems: (1) GERD (gastroesophageal reflux disease) (2) Hyperlipidemia (3) Seasonal allergies (4) Tobacco abuse Surgical Problems: (1) H/O colonoscopy (2) H/O esophagogastroduodenoscopy Social History Problems: (1) Daily consumption of alcohol (2) Tobacco history - daily pipe smoker Family History Cancer Diabetes mellitus Heart disease Hypertension Kidney disease Social History Smoking Status: Current Every Day Smoker (Pipe smoker - no cigarette use in the past) Smokeless Tobacco Use: No Alcohol Use: Wine daily and occasional rum Drug Use: none Marital Status: Housing Status: lives with family Occupation Status: employed Allergies Coded Allergies: No Known Allergies (Unverified , 09/05/16) Home Medications Scheduled Fexofenadine-Pseudoephedrine (Summer-D 24 Hour Allergy), 1 TAB PO DAILY Omeprazole (Prilosec), 20 MG PO BID Current Inpatient Medications Current Inpatient Medications Medications (Trade) Dose Ordered Sig/Leia Route Start Time Stop Time Status Last Admin Dose Admin Sodium Chloride (Nss 1000ml) 1,000 ml @ 100 mls/hr Q10H IV 09/05/16 06:45 10/05/16 06:44 09/05/16 07:06 100 MLS/HR Atropine Sulfate (Atropine Sulfate 0.1MG/Ml Inj) 0.5 mg ONE PRN IV 09/05/16 06:45 10/05/16 06:44 Ondansetron HCl (Zofran Inj) 4 mg Q6H PRN IV 09/05/16 06:45 10/05/16 06:44 Aspirin (Ecotrin Tab) 81 mg QAM PO 09/06/16 09:00 10/06/16 08:59 Atorvastatin Calcium (Lipitor Tab) 80 mg QAM PO 09/05/16 09:00 10/05/16 08:59 09/05/16 07:56 80 MG Metoprolol Tartrate (Lopressor Tab) 12.5 mg Q12 PO 09/05/16 09:00 10/05/16 08:59 09/05/16 07:56 12.5 MG Lisinopril (Zestril Tab) 5 mg QAM PO 09/05/16 09:00 10/05/16 08:59 09/05/16 07:55 5 MG Acetaminophen (Tylenol Tab) 650 mg Q4H PRN PO 09/05/16 06:45 10/05/16 06:44 Morphine Sulfate 2 mg 2 mg Q5M PRN IV 09/05/16 06:45 09/19/16 06:44 Lorazepam/Syringe (Ativan Inj/ Syringe) 0.25 ml @ 1 mls/min Q6H PRN IV 09/05/16 06:45 10/05/16 06:44 Pantoprazole Sodium (Protonix Tab) 40 mg BID PO 09/05/16 21:00 10/05/16 20:59 Clopidogrel Bisulfate (plAVix TAB) 75 mg QAM PO 09/06/16 09:00 10/06/16 08:59 Lorazepam 0.5 mg 0.5 mg Q6H PRN IV 09/05/16 07:00 10/05/16 06:59 Eptifibatide (Integrilin Inj) 100 ml @ 16 mls/hr Q6H15M IV 09/05/16 07:00 09/05/16 23:30 Miscellaneous (Stop Order) 1 ea TODAY@2330 ONCE N/A 09/05/16 23:30 09/05/16 23:31 Nitroglycerin (Nitrostat Tab) 0.4 mg UD PRN SL 09/05/16 07:00 10/05/16 06:59 Review of Systems A total of 12 systems was reviewed and is negative other than as listed above in the HPI Physical Exam Date Time Temp Pulse Resp B/P Pulse Ox O2 Delivery O2 Flow Rate FiO2 09/05/16 08:45 65 17 120/85 97 Room Air 09/05/16 08:15 72 20 132/88 97 Room Air 09/05/16 08:00 97 Room Air 09/05/16 08:00 67 17 121/80 96 Room Air 09/05/16 07:45 77 22 130/74 97 Room Air 09/05/16 07:30 63 16 113/74 96 Room Air 09/05/16 07:15 65 16 114/75 96 Room Air 09/05/16 07:00 66 18 110/75 97 Room Air 09/05/16 07:00 36.8 81 19 110/75 96 Room Air 09/05/16 06:45 71 14 117/77 96 Room Air 09/05/16 06:29 36.8 67 14 114/69 95 Room Air 09/05/16 06:20 70 16 125/73 95 Room Air 09/05/16 06:10 70 16 120/73 95 Room Air 09/05/16 05:00 113/74 09/05/16 04:55 117/67 09/05/16 04:53 69 18 94 Nasal Cannula 2.0 09/05/16 04:50 102/65 09/05/16 04:45 88/57 09/05/16 04:40 90/61 09/05/16 04:23 77 18 95 Nasal Cannula 2.0 09/05/16 04:20 Room Air 09/05/16 04:16 Room Air 09/05/16 04:14 Room Air 09/05/16 04:12 146/100 09/05/16 03:55 36.4 64 20 172/99 97 Room Air VITAL SIGNS - Vital signs and nursing notes were reviewed. GENERAL - 66-year-old Male appearing his stated age who is in no acute distress. Communicates well with provider and answers questions appropriately. HEAD - NC/AT. EYES - PERRL with EOMI bilaterally. Sclera anicteric. Palpebral conjunctiva pink and moist with no injection noted. NOSE - Midline and without cyanosis. No epistaxis or purulent drainage noted. MOUTH/OROPHARYNX - Without perioral cyanosis. Buccal mucosa pink and moist and without leukoplakia. Tongue midline with equal elevation of palate bilaterally. Good dentition noted. NECK - Neck with FROM. LUNGS - Chest wall symmetric without accessory muscle use, intercostals retractions, or central cyanosis. Normal vesicular breath sounds CTA B/L. No wheezes, rales, or rhonchi appreciated. CARDIAC - RRR with S1/S2. No murmur, rubs, or gallops appreciated. ABDOMEN - Abdominal contour obese without pulsations or visible masses. BS normoactive all four quadrants. No tenderness, palpable masses, hepatosplenomegaly, or ascites noted. EXTREMITIES - No clubbing or peripheral cyanosis. No pretibial edema present. +3 /5 radial and dorsalis pedis pulses palpated throughout. +5/5 strength noted in UE/LE bilaterally. NEUROLOGIC - Cranial nerves II through XII grossly intact. Sensory intact to light touch throughout. PSYCH - A&Ox3 and cooperates fully with examiner. Pt is very pleasant and interacts well with examiner. Laboratory Results Last 24 Hours Test 09/05/16 04:05 09/05/16 04:10 09/05/16 04:15 09/05/16 05:45 White Blood Count 4.60 K/uL Red Blood Count 5.29 M/uL Hemoglobin 16.7 g/dL Hematocrit 49.8 % Mean Corpuscular Volume 94.1 fL Mean Corpuscular Hemoglobin 31.6 pg Mean Corpuscular Hemoglobin Concent 33.5 g/dl Platelet Count 238 K/uL Mean Platelet Volume 10.4 fL Neutrophils (%) (Auto) 36.2 % Lymphocytes (%) (Auto) 48.5 % Monocytes (%) (Auto) 8.7 % Eosinophils (%) (Auto) 5.2 % Basophils (%) (Auto) 0.7 % Neutrophils # (Auto) 1.67 K/uL Lymphocytes # (Auto) 2.23 K/uL Monocytes # (Auto) 0.40 K/uL Eosinophils # (Auto) 0.24 K/uL Basophils # (Auto) 0.03 K/uL RDW Standard Deviation 45.1 fL RDW Coefficient of Variation 13.2 % Immature Granulocyte % (Auto) 0.7 % Immature Granulocyte # (Auto) 0.03 K/uL Sodium Level 144 mmol/L Potassium Level 3.7 mmol/L Chloride Level 108 mmol/L Carbon Dioxide Level 29 mmol/L Anion Gap 7.0 mmol/L 19.0 mmol/L Blood Urea Nitrogen 13 mg/dl Creatinine 1.30 mg/dl Est Creatinine Clear Calc Drug Dose 67.4 ml/min Estimated GFR () 66.8 Estimated GFR (Non- 57.7 BUN/Creatinine Ratio 9.9 Random Glucose 117 mg/dl Calcium Level 9.0 mg/dl Total Bilirubin 0.4 mg/dl Direct Bilirubin 0.1 mg/dl Aspartate Amino Transf (AST/SGOT) 21 U/L Alanine Aminotransferase (ALT/SGPT) 32 U/L Alkaline Phosphatase 60 U/L Total Protein 7.5 gm/dl Albumin 4.1 gm/dl Lipase 136 U/L Bedside Troponin I 0.590 ng/ml Bedside Hemoglobin 16.7 g/dl Bedside Hematocrit 49 % Bedside Sodium 143 mEq/L Bedside Potassium 3.6 mEq/L Bedside Chloride 103 mEq/L Bedside Total CO2 25 mEq/l Bedside Blood Urea Nitrogen 13 mg/dl Bedside Creatinine 1.4 mg/dl Bedside Glucose (other) 115 mg/dl Bedside Ionized Calcium (Gautam) 1.15 mmol/l Kaolin Activated Coagulation Time 312 SECONDS Test 09/05/16 07:09 White Blood Count 5.41 K/uL Red Blood Count 5.16 M/uL Hemoglobin 15.6 g/dL Hematocrit 48.3 % Mean Corpuscular Volume 93.6 fL Mean Corpuscular Hemoglobin 30.2 pg Mean Corpuscular Hemoglobin Concent 32.3 g/dl Platelet Count 238 K/uL Mean Platelet Volume 10.5 fL Neutrophils (%) (Auto) 73.0 % Lymphocytes (%) (Auto) 17.4 % Monocytes (%) (Auto) 7.0 % Eosinophils (%) (Auto) 2.0 % Basophils (%) (Auto) 0.4 % Neutrophils # (Auto) 3.95 K/uL Lymphocytes # (Auto) 0.94 K/uL Monocytes # (Auto) 0.38 K/uL Eosinophils # (Auto) 0.11 K/uL Basophils # (Auto) 0.02 K/uL RDW Standard Deviation 45.7 fL RDW Coefficient of Variation 13.2 % Immature Granulocyte % (Auto) 0.2 % Immature Granulocyte # (Auto) 0.01 K/uL Sodium Level 142 mmol/L Potassium Level 4.2 mmol/L Chloride Level 109 mmol/L Carbon Dioxide Level 25 mmol/L Anion Gap 8.0 mmol/L Blood Urea Nitrogen 11 mg/dl Creatinine 0.96 mg/dl Est Creatinine Clear Calc Drug Dose 91.7 ml/min Estimated GFR () 96.4 Estimated GFR (Non- 83.2 BUN/Creatinine Ratio 11.7 Random Glucose 108 mg/dl Calcium Level 8.7 mg/dl Total Creatine Kinase 774 U/L Creatine Kinase MB 45.2 ng/ml Creatine Kinase MB Ratio 5.8 Troponin I 17.200 ng/ml Triglycerides Level 63 mg/dl Cholesterol Level 207 mg/dl HDL Cholesterol 36 mg/dl LDL Cholesterol Direct 153 mg/dl LDL Cholesterol, Calculated mg/dl VLDL Cholesterol, Calculated 13 mg/dl Cholesterol/HDL Ratio 5.8 Diagnostic Results Radiology imaging and reports were reviewed by myself. Radiologist's interpretations are as follows: CHEST ONE VIEW PORTABLE CLINICAL HISTORY: CHEST PAIN dyspnea COMPARISON STUDY: No previous studies for comparison. FINDINGS: The bones soft tissues and hemidiaphragms are normal. The cardiomediastinal silhouette is normal. The lungs are clear. The pulmonary vasculature is normal. IMPRESSION: Negative chest. Electronically signed by: Jatin Wayne M.D. 09/05/2016 7:07 AM Assessment & Plan CAD/ACS Heart alert with cardiac catheterization 09/04/[address] Ciarra HOLLY to LAD See cardiac section below for plan NEURO - * No focal neurological deficits time. No complaints of headaches. Continue focused neurological assessments while on Integrilin drip. Pupils equal on exam CARDIAC - * Heart Alert through ED followed by cardiac catheterization with PTCA with AVNI placement to to a 99% occluded mid LAD with successful reperfusion. * Integrilin drip at 2350 09/04/2016 - continue per post-cath protocol. Plan is for 24 hour infusion * Post-cath Rx including ASA, Statin, Beta Essie, Lisinopril. * Post stent angiography demonstrates suggested severe hypokinesis to the anterior segment and apical segment of the LEFT ventricle. * Waiting Post-Cath Echo. * Trend CKP (initially 774) in the setting of ongoing exertional symptoms for the past 2 weeks as well as presenting slight DEVONTE and recent IVP and menstruation for PCI. * Hyperlipidemia with nonfasting cholesterol mildly elevated at 207. Patient will be placed on statins as per post-TX protocol. Do not see the utility and repeating fasting lipid profile in this setting. * AM EKGs. EKGs with complaints of pain or anginal equivalent of pain. * Venous Doppler of the bilateral lower extremities to be performed to rule out DVT in the setting of recent long distance travel, RIGHT Achilles pain, and thrombus seen in LAD during catheterization. RESPIRATORY - * History of daily smoking. Encourage smoking cessation. * Nicotine patch as needed. * Question of early infiltrate versus congestive change versus image quality to the RIGHT middle lobe noted on presenting chest x-ray. * Repeat a.m. chest x-ray for evaluation and early intervention if necessary. * Encourage incentive spirometry in the setting of a known smoker with above- mentioned chest x-ray findings and recent coronary intervention. GASTROINTESTINAL - * Known history of GERD. * Continue oral PPI from outpatient setting. * Follow-up with GI in the outpatient setting for continued management. - * Question of BPH - continue routine outpatient monitoring. * Strict I&Os ENDO - * BSGs within normal limits - continue to monitor. * HgB A1c pending - no prior hx of DM HEME - * H&H 15.6/48.3, Platelets 238 * Continue to monitor while on Integrilin. ID - * WBC wnl and afebrile - no suspected infection at this point. * Repeat CXR in the a.m. to evaluate possible RML infiltrate, particularly in the setting of a daily smoker with an episode of emesis this a.m. in the setting of pain. ELECTROLYTES * Na+ 142, K+ 4.2, Ca+ 8.7. Magnesium not checked in light of normal K+ * Follow serial labs * No arrhythmias on telemetry * Continue to monitor on telemetry Lines/IV Access - * 18 gauge PIV in RIGHT AC. * 18 gauge PIV in LEFT AC. DVT PROPHYLAXIS Integrilin No SCDs pending LE duplex to R/O DVT Patient was seen in the intensive care unit. Bill as a level III inpatient consult. Please refer to Dr. Ocampo's addendum for any further recommendation. PETERSON Supervision Note: I interviewed and examined the patient. Discussed with Cruz Crenshaw PA-C and agree with findings and plan as documented in the note. He is doing well post cath and LAD stenting. F/U venous dopplers and echo. Documented By: Yari Ocampo
[2016-09-05] MEDS: EPTIFIBATIDE INJ 75 MG PREMIXED IV SCH ×2 (10:51→17:02)
[2016-09-05 11:25] LABS: ESTIMATED AVERAGE GLUCOSE 123 mg/dl; HA1C FLAG Normal (Normal)
--- NOTE | 2016-09-05 13:59 | Progress Note ---
Internal Med Progress Note Date of Service: September 05, 2016. Provider Documentation: SUBJECTIVE: The patient was seen and examined Some epigastric discomfort Denies any other symptoms OBJECTIVE: Vital Signs-as noted below Exam: General-No distress at rest Eyes-normal ENT-normal Neck-supple Lungs-clear to ausucltate bilaterally Heart-Regular,no murmur appreciated Abdomen-benign,no masses,bowel sound present Extremities-no edema Neuro-AAOx3 Lab data as noted below. ASSESSMENT & PLAN: ST elevated [place], Heart Alert through ED S/P cardiac catheterization found to have a 99% occluded mid LAD Treated with PTCA with AVNI placement to to with successful reperfusion. Receiving Integrilin Post-cath Rx including ASA, Statin, Beta Essie, Lisinopril. ECHO done =report pending Patient remains symptoms free Monitor is not showing any arrhythmia Hyperlipidemia LDL-153 and HDL -36 Started on Statin GERD. Continue Prilosec. DVT prophylaxis. SCDs for now. Disposition: Close monitor in the ICU. Level 1 full code. Vital Signs: Date Time Temp Pulse Resp B/P Pulse Ox O2 Delivery O2 Flow Rate FiO2 09/05/16 13:00 74 12 116/73 97 Room Air 09/05/16 12:00 Room Air 09/05/16 12:00 36.7 67 12 128/78 96 Room Air 09/05/16 11:00 61 17 126/85 96 Room Air 09/05/16 10:15 67 16 133/75 97 Room Air 09/05/16 09:15 67 14 129/87 97 Room Air 09/05/16 08:45 65 17 120/85 97 Room Air 09/05/16 08:15 72 20 132/88 97 Room Air 09/05/16 08:00 97 Room Air 09/05/16 08:00 67 17 121/80 96 Room Air 09/05/16 07:45 77 22 130/74 97 Room Air 09/05/16 07:30 63 16 113/74 96 Room Air 09/05/16 07:15 65 16 114/75 96 Room Air 09/05/16 07:00 66 18 110/75 97 Room Air 09/05/16 07:00 36.8 81 19 110/75 96 Room Air 09/05/16 06:45 71 14 117/77 96 Room Air 09/05/16 06:29 36.8 67 14 114/69 95 Room Air 09/05/16 06:20 70 16 125/73 95 Room Air 09/05/16 06:10 70 16 120/73 95 Room Air 09/05/16 05:00 113/74 09/05/16 04:55 117/67 09/05/16 04:53 69 18 94 Nasal Cannula 2.0 09/05/16 04:50 102/65 09/05/16 04:45 88/57 09/05/16 04:40 90/61 09/05/16 04:23 77 18 95 Nasal Cannula 2.0 09/05/16 04:20 Room Air 09/05/16 04:16 Room Air 09/05/16 04:14 Room Air 09/05/16 04:12 146/100 09/05/16 03:55 36.4 64 20 172/99 97 Room Air Lab Results: Results Past 24 Hours Test 09/05/16 04:05 09/05/16 04:10 09/05/16 04:15 09/05/16 05:45 Range/Units White Blood Count 4.60 4.8-10.8 K/uL Red Blood Count 5.29 4.7-6.1 M/uL Hemoglobin 16.7 14.0-18.0 g/dL Hematocrit 49.8 42-52 % Mean Corpuscular Volume 94.1 80-100 fL Mean Corpuscular Hemoglobin 31.6 25-34 pg Mean Corpuscular Hemoglobin Concent 33.5 32-36 g/dl Platelet Count 238 130-400 K/uL Mean Platelet Volume 10.4 7.4-10.4 fL Neutrophils (%) (Auto) 36.2 % Lymphocytes (%) (Auto) 48.5 % Monocytes (%) (Auto) 8.7 % Eosinophils (%) (Auto) 5.2 % Basophils (%) (Auto) 0.7 % Neutrophils # (Auto) 1.67 1.4-6.5 K/uL Lymphocytes # (Auto) 2.23 1.2-3.4 K/uL Monocytes # (Auto) 0.40 0.11-0.59 K/uL Eosinophils # (Auto) 0.24 0-0.5 K/uL Basophils # (Auto) 0.03 0-0.2 K/uL RDW Standard Deviation 45.1 36.4-46.3 fL RDW Coefficient of Variation 13.2 11.5-14.5 % Immature Granulocyte % (Auto) 0.7 % Immature Granulocyte # (Auto) 0.03 0.00-0.02 K/uL Sodium Level 144 136-145 mmol/L Potassium Level 3.7 3.5-5.1 mmol/L Chloride Level 108 98-107 mmol/L Carbon Dioxide Level 29 21-32 mmol/L Anion Gap 7.0 19.0 16-25 mmol/L Blood Urea Nitrogen 13 7-18 mg/dl Creatinine 1.30 0.60-1.40 mg/dl Est Creatinine Clear Calc Drug Dose 67.4 ml/min Estimated GFR () 66.8 Estimated GFR (Non- 57.7 BUN/Creatinine Ratio 9.9 10-20 Random Glucose 117 70-99 mg/dl Estimated Average Glucose 123 mg/dl Hemoglobin A1c 5.9 4.5-5.6 % Calcium Level 9.0 8.5-10.1 mg/dl Total Bilirubin 0.4 0.2-1 mg/dl Direct Bilirubin 0.1 0-0.2 mg/dl Aspartate Amino Transf (AST/SGOT) 21 15-37 U/L Alanine Aminotransferase (ALT/SGPT) 32 12-78 U/L Alkaline Phosphatase 60 45-117 U/L Total Protein 7.5 6.4-8.2 gm/dl Albumin 4.1 3.4-5.0 gm/dl Lipase 136 73-393 U/L Bedside Troponin I 0.590 0-0.045 ng/ml Bedside Hemoglobin 16.7 14.0-18.0 g/dl Bedside Hematocrit 49 42-52 % Bedside Sodium 143 135-144 mEq/L Bedside Potassium 3.6 3.3-5.0 mEq/L Bedside Chloride 103 101-112 mEq/L Bedside Total CO2 25 24-31 mEq/l Bedside Blood Urea Nitrogen 13 7-18 mg/dl Bedside Creatinine 1.4 0.6-1.3 mg/dl Bedside Glucose (other) 115 70-99 mg/dl Bedside Ionized Calcium (Gautam) 1.15 1.12-1.32 mmol/l Kaolin Activated Coagulation Time 312 94-140 SECONDS Test 09/05/16 07:09 Range/Units White Blood Count 5.41 4.8-10.8 K/uL Red Blood Count 5.16 4.7-6.1 M/uL Hemoglobin 15.6 14.0-18.0 g/dL Hematocrit 48.3 42-52 % Mean Corpuscular Volume 93.6 80-100 fL Mean Corpuscular Hemoglobin 30.2 25-34 pg Mean Corpuscular Hemoglobin Concent 32.3 32-36 g/dl Platelet Count 238 130-400 K/uL Mean Platelet Volume 10.5 7.4-10.4 fL Neutrophils (%) (Auto) 73.0 % Lymphocytes (%) (Auto) 17.4 % Monocytes (%) (Auto) 7.0 % Eosinophils (%) (Auto) 2.0 % Basophils (%) (Auto) 0.4 % Neutrophils # (Auto) 3.95 1.4-6.5 K/uL Lymphocytes # (Auto) 0.94 1.2-3.4 K/uL Monocytes # (Auto) 0.38 0.11-0.59 K/uL Eosinophils # (Auto) 0.11 0-0.5 K/uL Basophils # (Auto) 0.02 0-0.2 K/uL RDW Standard Deviation 45.7 36.4-46.3 fL RDW Coefficient of Variation 13.2 11.5-14.5 % Immature Granulocyte % (Auto) 0.2 % Immature Granulocyte # (Auto) 0.01 0.00-0.02 K/uL Sodium Level 142 136-145 mmol/L Potassium Level 4.2 3.5-5.1 mmol/L Chloride Level 109 98-107 mmol/L Carbon Dioxide Level 25 21-32 mmol/L Anion Gap 8.0 3-11 mmol/L Blood Urea Nitrogen 11 7-18 mg/dl Creatinine 0.96 0.60-1.40 mg/dl Est Creatinine Clear Calc Drug Dose 91.7 ml/min Estimated GFR () 96.4 Estimated GFR (Non- 83.2 BUN/Creatinine Ratio 11.7 10-20 Random Glucose 108 70-99 mg/dl Calcium Level 8.7 8.5-10.1 mg/dl Total Creatine Kinase 774 39-308 U/L Creatine Kinase MB 45.2 0.5-3.6 ng/ml Creatine Kinase MB Ratio 5.8 0-3.0 Troponin I 17.200 0-0.045 ng/ml Triglycerides Level 63 0-150 mg/dl Cholesterol Level 207 0-200 mg/dl HDL Cholesterol 36 mg/dl LDL Cholesterol Direct 153 mg/dl LDL Cholesterol, Calculated mg/dl VLDL Cholesterol, Calculated 13 mg/dl Cholesterol/HDL Ratio 5.8 Microbiology Results 09/05/16 MRSA DNA Surveillance Screen, Jenny Batch Pending 09/05/16 MRSA DNA Surveillance Screen - Final, Complete Specimen Negative for MRSA by DNA Probe
--- NOTE | 2016-09-05 14:29 | ECHOCARDIOGRAM REPORT ---
*NOTICE TO RECEIVING DEMOCRAT AGENCY This information is strictly Confidential and protected under [place] law. [place] law prohibits you from making any further disclosure of this information unless further disclosure is expressly permitted by the written consent of the person to whom it pertains or is authorized by law. A general authorization for the release of medical or other information is not sufficient for this purpose. Hospital accepts no responsibility if the information is made available to any other person, INCLUDING THE PATIENT. Interpretation Summary * Conclusions -- * 1. Normal left ventricular size with moderately reduced systolic function. EF 40%. RCA and LAD infarct (akinesis/dyskinesis of apex, distal inferior, and distal septal wall segments; akinesis of distal anterior, distal lateral, basal inferior, and basal septal wall; hypokinesis of mid anterior wall). Moderate concentric left ventricular hypertrophy. Type 2 diastolic dysfunction. Possible apical thrombus. * 2. No significant valvular abnormalities visualized. * 3. Technically difficult study, enhanced with IV Definity. * 4. No prior study available for comparison. Procedure Details * A complete two-dimensional transthoracic echocardiogram was performed (2D, M-mode, Doppler and color flow Doppler). * A contrast injection of Definity was performed to improve assessment of LV function. * Contrast was injected into an intravenous site in the right arm. * One vial of Definity ultrasound contrast was diluted in normal saline to a total volume of 10 ml. A total of '2' ml of solution was administered during imaging. * Lot # [id number] of Definity utilized for procedure. * Expiration date AUG 08. * The attending nurse who injected the contrast agent was SARATH AYOUB RN. Left Ventricle * Normal left ventricular size with moderately reduced systolic function. EF 40%. RCA and LAD infarct (akinesis/dyskinesis of apex, distal inferior, and distal septal wall segments; akinesis of distal anterior, distal lateral, basal inferior, and basal septal wall; hypokinesis of mid anterior wall). Moderate concentric left ventricular hypertrophy. Type 2 diastolic dysfunction. Possible apical thrombus. Right Ventricle * The right ventricle is not well visualized. * The right ventricle is grossly normal size. * RV systolic function appears grossly normal. Atria * The left atrial size is normal. * Right atrial size is normal. * There is no evidence of atrial septal defect, but resolution does not allow assessment for a patent foramen ovale. Mitral Valve * The mitral valve is grossly normal. * There is no mitral valve stenosis. * There is trace mitral regurgitation. Tricuspid Valve * The tricuspid valve is not well visualized, but is grossly normal. * There is no tricuspid stenosis. * There is trace tricuspid regurgitation. Aortic Valve * The aortic valve is trileaflet. * No hemodynamically significant valvular aortic stenosis. * No aortic regurgitation is present. Pulmonic Valve * The pulmonary valve is inadequately visualized, but the Doppler data is adequate for interpretation. * There is no pulmonic valvular stenosis. * Trace pulmonic valvular regurgitation. Great Vessels * The aortic root is normal size. * Ascending aorta of normal dimension Pericardium/Pleural * There is no pericardial effusion. Great Vessels * IVC normal in size. MMode 2D Measurements and Calculations IVSd 1.4 cm IVSs 1.8 cm LVIDd 4.7 cm LVIDs 3.7 cm LVPWd 1.3 cm LVPWs 1.4 cm IVS/LVPW 1.1 FS 21.3 % EDV(Teich) 99.9 ml ESV(Teich) 56.7 ml EF(Teich) 43.2 % EDV(cubed) 100.7 ml ESV(cubed) 49.1 ml EF(cubed) 51.2 % % IVS thick 26.7 % % LVPW thick 8.4 % LV mass(C)d 252.1 grams LV mass(C)dI 117.1 grams/m\S\2 LV mass(C)s 231.2 grams LV mass(C)sI 107.4 grams/m\S\2 SV(Teich) 43.2 ml SI(Teich) 20.1 ml/m\S\2 SV(cubed) 51.5 ml SI(cubed) 23.9 ml/m\S\2 Ao root diam 3.2 cm Ao root area 7.8 cm\S\2 ACS 2.2 cm LA dimension 3.2 cm asc Aorta Diam 3.0 cm LA/Ao 1.0 LVOT diam 2.1 cm LVOT area 3.4 cm\S\2 LVAd ap4 33.4 cm\S\2 LVLd ap4 8.0 cm EDV(MOD-sp4) 116.6 ml EDV(sp4-el) 119.7 ml LVAs ap4 25.1 cm\S\2 LVLs ap4 7.5 cm ESV(MOD-sp4) 69.2 ml ESV(sp4-el) 71.6 ml EF(MOD-sp4) 40.6 % EF(sp4-el) 40.2 % LVAd ap2 35.2 cm\S\2 LVLd ap2 8.2 cm EDV(MOD-sp2) 120.8 ml EDV(sp2-el) 128.1 ml LVAs ap2 26.7 cm\S\2 LVLs ap2 7.8 cm ESV(MOD-sp2) 74.6 ml ESV(sp2-el) 77.9 ml EF(MOD-sp2) 38.3 % EF(sp2-el) 39.2 % LVLd %diff 3.8 % EDV(MOD-bp) 136.1 ml LVLs %diff 6.0 % ESV(MOD-bp) 62.3 ml EF(MOD-bp) 54.2 % SV(MOD-sp4) 47.3 ml SI(MOD-sp4) 22.0 ml/m\S\2 SV(MOD-sp2) 46.2 ml SI(MOD-sp2) 21.5 ml/m\S\2 SV(MOD-bp) 73.7 ml SI(MOD-bp) 34.2 ml/m\S\2 SV(sp4-el) 48.1 ml SI(sp4-el) 22.3 ml/m\S\2 SV(sp2-el) 50.2 ml SI(sp2-el) 23.3 ml/m\S\2 Doppler Measurements and Calculations MV E max ramirez 58.8 cm/sec MV A max ramirez 55.5 cm/sec MV E/A 1.1 MV P1/2t max ramirez 71.0 cm/sec MV P1/2t 90.5 msec MVA(P1/2t) 2.4 cm\S\2 MV dec slope 229.8 cm/sec\S\2 MV dec time 0.27 sec Ao V2 max 76.2 cm/sec Ao max PG 2.3 mmHg PA V2 max 98.9 cm/sec PA max PG 3.9 mmHg PI max ramirez 123.6 cm/sec PI max PG 6.1 mmHg PI dec slope 84.7 cm/sec\S\2 PI P1/2t 427.1 msec
[2016-09-05 15:31] LABS: CKMB/CK RATIO 5.7 (0-3.0)
--- NOTE | 2016-09-05 17:49 | DIAGNOSTIC IMAGING REPORT ---
ULTRASOUND VENOUS DOPPLER LWR EXT BILA CLINICAL HISTORY: Leg swelling. Acute myocardial infarction. COMPARISON STUDY: No previous studies for comparison. FINDINGS: Real-time and color flow Doppler imaging were performed. Flow was seen within the femoral, popliteal and calf veins with no intraluminal thrombus demonstrated. The saphenous vein is patent. IMPRESSION: No evidence of lower extremity DVT. Electronically signed by: Itz Boles M.D. 09/05/2016 5:48 PM Dictated Date/Time: 09/05/2016 5:47 PM
[2016-09-05] MEDS: PANTOprazole SOD 40 MG TAB PO SCH (19:19)
[2016-09-05 23:13] LABS: CKMB/CK RATIO 5.2 (0-3.0)
[2016-09-05] MEDS ORDERED: Integrelin infusion --> STOP ORDER ONE (23:30)
[2016-09-06] VITALS (12 sets, daily range): BP systolic 119–147; BP diastolic 72–97; PULSE 57–78; TEMP 36.4–36.8; O2SAT 95–98
[2016-09-06] MEDS: SODIUM CHLORIDE 0.9% 1000ML 1,000 ML IV SCH (03:12)
[2016-09-06 06:15] LABS: BASO % 0.2 %; BASO ABS # 0.01 K/uL (0-0.2); COMPLETE YES; EOS % 4.4 %; HEMATOCRIT 46.1 % (42-52); IG% 0.2 %; LYMPH % 34.7 %; LYMPH ABS # 1.65 K/uL (1.2-3.4); MEAN CELL VOLUME 94.1 fL (80-100); MEAN CORPUSCULAR HEMOGLOBIN 30.6 pg (25-34); MEAN CORPUSCULAR HGB CONC 32.5 g/dl (32-36); MEAN PLATELET VOLUME 10.6 fL (7.4-10.4); MONO % 10.7 %; NEUT % 49.8 %; PLATELET COUNT 219 K/uL (130-400); WHITE BLOOD COUNT 4.75 K/uL (4.8-10.8)
[2016-09-06 06:47] LABS: BUN/CREATININE RATIO 13.4 (10-20); CALCIUM 7.9 mg/dl (8.5-10.1); CREATININE 0.99 mg/dl (0.60-1.40); POTASSIUM 3.9 mmol/L (3.5-5.1)
[2016-09-06] MEDS: EPTIFIBATIDE INJ 75 MG PREMIXED IV SCH (07:12)
[2016-09-06] MEDS: ATORVASTATIN 40 MG TAB PO SCH (08:18)
[2016-09-06] MEDS: PANTOprazole SOD 40 MG TAB PO SCH ×2 (08:18→20:57)
[2016-09-06] MEDS: CLOPIDOGREL BISULFATE 75 MG TAB PO SCH (08:18)
[2016-09-06] MEDS: ASPIRIN 81 MG ECTAB PO SCH (08:19)
[2016-09-06] MEDS: LISINOPRIL 5 MG TAB PO SCH (08:19)
[2016-09-06] MEDS: METOPROLOL TARTRATE 25 MG TAB PO SCH (09:03)
--- NOTE | 2016-09-06 10:04 | Critical Care Progress Note ---
Critical Care Progress Note Date of Service September 06, 2016. Attending Dr. Ocampo Subjective This 66-year-old -[place] male that was admitted two nights ago for chest pain. He underwent urgent cardiac catheterization and was found to have 99 % stenosis of the LAD. A drug-eluting stent was placed without complication. Patient was on Integrilin drip until last night at 2300 one Integrilin was stopped. EKG was performed this morning and patient does continue to have some ST changes consistent with previous EKG. Patient also now with some bradycardia. Patient seen this morning at bedside and has no chest pain or shortness of breath. He denies fever, chills, sweats, rigors. He has no nausea or vomiting. Pain in left arm is resolved. He has no asymmetrical edema of any extremities. He has no acute complaints. It should be noted that patient was seen at bedside with his present at approximately 07:15. Echocardiogram results were reviewed with the patient is . Discussion included possibility of thrombus in the apex as well as wall motion irregularities. Patient and acknowledged conversation. I advised them to further discuss need for anticoagulation with cardiology. Objective Vital Signs - as noted below Laboratory Data - as noted below Physical Exam: General - NAD Eyes - No icterus, gaze conjugate ENT - Mucosa moist, no lesions or candidiasis Neck - Supple, No JVD Lungs - No bronchospasm, rales, or rhonchi. Heart - Regular, rate controlled Abdomen - Soft, NT, ND, BS present Extremities - No edema, pedal pulses intact Neuro - A&OX3 Current SOFA Score SOFA Score Response (Comments) Value SaO2 / FIO2 67 - 141 3 Platelets (x10) > 150 0 Bilirubin (mg/dL) < 1.2 0 Renetta Coma Score 15 0 Level of Hypotension No Hypotension 0 Creatinine (mg/dL) < 1.2 0 Total 3 Assessment & Plan ST ELEVATED AR Patient presented with ST changes and chest pain He was taken urgently to the cardiac catheterization lab 5/15 p.m. and received a drug-eluting stent to the LAD with Dr. Lafleur Integrilin was stopped last night at 2300 Echocardiogram completed yesterday showed wall motion irregularity in the left ventricle with question of thrombus in the apex with a preserved left ventricular ejection fraction 40% Patient's chest pain free this morning Troponins peaked at 20 and of trended downward and are 10 this morning Hemodynamically stable No evidence of bleeding Patient started on aspirin, Plavix, lisinopril, atorvastatin 80 mg, and metoprolol tartrate 12.5 mg PO BID BRADYCARDIA Patient with heart rate as low as 58 Currently patient's resting heart rate is in the mid 60s Patient started on beta joann status post stenting Asymptomatic Watch closely with ambulation APICAL CARDIAC THROMBUS Echocardiogram suggests possibility of atypical thrombus Literature review indicates the patient should be anticoagulated Left ventricular ejection fraction 40% Suggest heparin drip with bridging and starting Coumadin to titrate to an INR greater than 2.5 We'll discuss with cardiology this morning Patient aware of possible thrombus Lower extremity duplex negative for DVT Continue to monitor on telemetry PULMONARY Initial chest x-ray showed question of infiltrate at right base Patient with vomiting prior to arrival Oxygenating well on room air No adventitious breath sounds No elevation in white count No cough or sputum production We'll start incentive spirometry Increase ambulation as tolerated watching for dyspnea with exertion TOBACCO ABUSE Patient admits to the daily use of pipe tobacco Discussed need for complete tobacco abstention Smoking cessation consult placed GERD Pantoprazole BID Continue Omeprazole BID as an outpatient med on discharge Further management by Dr. Olivo (PCP) DVT PROPHYLAXIS Lower extremity duplex negative for DVT Continue SCDs Discuss anticoagulation with cardiology secondary to question of apical cardiac thrombus CCT: 0 minutes. Level to inpatient follow-up note Thank you for including us in the care of this patient. Please refer to Dr. Pham addendum for further recommendations The patient was transferred to telemetry before I had an opportunity to see him. His care was discussed on rounds today in detail. Consults & Procedures Consultants: Cardiology - Dr. Lafleur Procedures: Cardiac catheterization - 09/04/[address] Lafleur Data Medications: Current Inpatient Medications Medications (Trade) Dose Ordered Sig/Leia Route Start Time Stop Time Status Last Admin Dose Admin Sodium Chloride (Nss 1000ml) 1,000 ml @ 100 mls/hr Q10H IV 09/05/16 06:45 10/05/16 06:44 09/06/16 03:12 100 MLS/HR Atropine Sulfate (Atropine Sulfate 0.1MG/Ml Inj) 0.5 mg ONE PRN IV 09/05/16 06:45 10/05/16 06:44 Ondansetron HCl (Zofran Inj) 4 mg Q6H PRN IV 09/05/16 06:45 10/05/16 06:44 Aspirin (Ecotrin Tab) 81 mg QAM PO 09/06/16 09:00 10/06/16 08:59 09/06/16 08:19 81 MG Atorvastatin Calcium (Lipitor Tab) 80 mg QAM PO 09/05/16 09:00 10/05/16 08:59 09/06/16 08:18 80 MG Metoprolol Tartrate (Lopressor Tab) 12.5 mg Q12 PO 09/05/16 09:00 10/05/16 08:59 09/06/16 09:03 12.5 MG Lisinopril (Zestril Tab) 5 mg QAM PO 09/05/16 09:00 10/05/16 08:59 09/06/16 08:19 5 MG Acetaminophen (Tylenol Tab) 650 mg Q4H PRN PO 09/05/16 06:45 10/05/16 06:44 Morphine Sulfate 2 mg 2 mg Q5M PRN IV 09/05/16 06:45 09/19/16 06:44 Lorazepam/Syringe (Ativan Inj/ Syringe) 0.25 ml @ 1 mls/min Q6H PRN IV 09/05/16 06:45 10/05/16 06:44 Pantoprazole Sodium (Protonix Tab) 40 mg BID PO 09/05/16 21:00 10/05/16 20:59 09/06/16 08:18 40 MG Clopidogrel Bisulfate (plAVix TAB) 75 mg QAM PO 09/06/16 09:00 10/06/16 08:59 09/06/16 08:18 75 MG Lorazepam (Ativan Inj) 0.5 mg Q6H PRN IV 09/05/16 07:00 10/05/16 06:59 Nitroglycerin (Nitrostat Tab) 0.4 mg UD PRN SL 09/05/16 07:00 10/05/16 06:59 I & O: 24-Hour Column 09/06/16 07:59 Intake Total 3833 ml Output Total 2225 ml Balance 1608 ml Vital Signs: Date Time Temp Pulse Resp B/P Pulse Ox O2 Delivery O2 Flow Rate FiO2 09/06/16 08:18 36.5 67 18 124/83 95 Room Air 09/06/16 08:00 Room Air 09/06/16 06:00 58 18 119/92 97 Room Air 09/06/16 04:05 95 Room Air 09/06/16 04:05 36.7 67 14 136/87 95 Room Air 09/06/16 02:00 65 20 132/97 96 Room Air 09/06/16 00:05 97 Room Air 09/06/16 00:02 36.6 65 18 132/79 97 Room Air 09/05/16 22:00 58 14 132/76 97 Room Air 09/05/16 20:00 36.7 60 14 123/76 98 Room Air 09/05/16 20:00 98 Room Air 09/05/16 18:01 67 16 128/79 96 Room Air 09/05/16 17:00 78 16 128/83 97 09/05/16 16:00 Room Air 09/05/16 16:00 36.6 66 24 135/86 96 09/05/16 13:00 74 12 116/73 97 Room Air 09/05/16 12:00 Room Air 09/05/16 12:00 36.7 67 12 128/78 96 Room Air 09/05/16 11:00 61 17 126/85 96 Room Air 09/05/16 10:15 67 16 133/75 97 Room Air Laboratory Results: Last 24 Hours Test 09/05/16 14:46 09/05/16 15:59 09/05/16 22:12 09/05/16 22:38 Total Creatine Kinase 687 U/L 404 U/L Creatine Kinase MB 39.5 ng/ml 21.0 ng/ml Creatine Kinase MB Ratio 5.7 5.2 Troponin I 20.800 ng/ml 10.900 ng/ml Bedside Glucose 106 mg/dl 91 mg/dl Test 09/06/16 05:56 White Blood Count 4.75 K/uL Red Blood Count 4.90 M/uL Hemoglobin 15.0 g/dL Hematocrit 46.1 % Mean Corpuscular Volume 94.1 fL Mean Corpuscular Hemoglobin 30.6 pg Mean Corpuscular Hemoglobin Concent 32.5 g/dl Platelet Count 219 K/uL Mean Platelet Volume 10.6 fL Neutrophils (%) (Auto) 49.8 % Lymphocytes (%) (Auto) 34.7 % Monocytes (%) (Auto) 10.7 % Eosinophils (%) (Auto) 4.4 % Basophils (%) (Auto) 0.2 % Neutrophils # (Auto) 2.36 K/uL Lymphocytes # (Auto) 1.65 K/uL Monocytes # (Auto) 0.51 K/uL Eosinophils # (Auto) 0.21 K/uL Basophils # (Auto) 0.01 K/uL RDW Standard Deviation 45.8 fL RDW Coefficient of Variation 13.3 % Immature Granulocyte % (Auto) 0.2 % Immature Granulocyte # (Auto) 0.01 K/uL Sodium Level 143 mmol/L Potassium Level 3.9 mmol/L Chloride Level 112 mmol/L Carbon Dioxide Level 25 mmol/L Anion Gap 6.0 mmol/L Blood Urea Nitrogen 13 mg/dl Creatinine 0.99 mg/dl Est Creatinine Clear Calc Drug Dose 89.2 ml/min Estimated GFR () 92.9 Estimated GFR (Non- 80.2 BUN/Creatinine Ratio 13.4 Random Glucose 89 mg/dl Calcium Level 7.9 mg/dl
[2016-09-06] MEDS ORDERED: METOPROLOL SUCC 50MG EXT REL TAB PO SCH (10:15)
[2016-09-06] MEDS ORDERED: LISINOPRIL 5 MG TAB PO ONE (11:00)
[2016-09-06] MEDS ORDERED: RIVAROXABAN 20 MG TAB PO SCH (11:15)
--- NOTE | 2016-09-06 11:46 | Progress Note ---
Internal Med Progress Note Date of Service: September 06, 2016. Provider Documentation: SUBJECTIVE: The patient was seen and examined Some epigastric discomfort Denies any other symptoms No arrhythmia and or symptoms noted OBJECTIVE: Vital Signs-as noted below Exam: General-No distress at rest Eyes-normal ENT-normal Neck-supple Lungs-clear to ausucltate bilaterally Heart-Regular,no murmur appreciated Abdomen-benign,no masses,bowel sound present Extremities-no edema Neuro-AAOx3 Lab data as noted below. ASSESSMENT & PLAN: ST Elevation IN s/p AVNI placed in LAD Heart Alert through ED S/P cardiac catheterization found to have a 99% occluded mid LAD Treated with PTCA with AVNI placement to to with successful reperfusion. Received Integrilin Post-cath Rx including ASA, Statin, Beta Essie, Lisinopril. ECHO done::n 1. Normal left ventricular size with moderately reduced systolic function. EF 40%. RCA and LAD infarct (akinesis/dyskinesis of apex, distal inferior, and distal septal wall segments; akinesis of distal anterior, distal lateral, basal inferior, and basal septal wall; hypokinesis of mid anterior wall ). Moderate concentric left ventricular hypertrophy. Type 2 diastolic dysfunction. Possible apical thrombus. n 2. No significant valvular abnormalities visualized. n 3. Technically difficult study, enhanced with IV Definity. n 4. No prior study available for comparison. Patient remains symptoms free Monitor is not showing any arrhythmia Has been on BB,ACEI,Statin,Aspirin and Plavix Xarelto for Apical thrombus Apical Thrombus Has Low EF too Started on Xarelto Further recommendation as per Cardiology TOBACCO ABUSE Discussed need for complete tobacco abstention Smoking cessation Nicotine Patch Hyperlipidemia LDL-153 and HDL -36 Started on Statin GERD. Continue Prilosec. DVT prophylaxis. SCDs for now. Disposition: Close monitor in the ICU. Level 1 full code. Vital Signs: Date Time Temp Pulse Resp B/P Pulse Ox O2 Delivery O2 Flow Rate FiO2 09/06/16 10:00 57 14 147/80 97 Room Air 09/06/16 08:18 36.5 67 18 124/83 95 Room Air 09/06/16 08:00 Room Air 09/06/16 06:00 58 18 119/92 97 Room Air 09/06/16 04:05 95 Room Air 09/06/16 04:05 36.7 67 14 136/87 95 Room Air 09/06/16 02:00 65 20 132/97 96 Room Air 09/06/16 00:05 97 Room Air 09/06/16 00:02 36.6 65 18 132/79 97 Room Air 09/05/16 22:00 58 14 132/76 97 Room Air 09/05/16 20:00 36.7 60 14 123/76 98 Room Air 09/05/16 20:00 98 Room Air 09/05/16 18:01 67 16 128/79 96 Room Air 09/05/16 17:00 78 16 128/83 97 09/05/16 16:00 Room Air 09/05/16 16:00 36.6 66 24 135/86 96 09/05/16 13:00 74 12 116/73 97 Room Air 09/05/16 12:00 Room Air 09/05/16 12:00 36.7 67 12 128/78 96 Room Air Lab Results: Results Past 24 Hours Test 09/05/16 14:46 09/05/16 15:59 09/05/16 22:12 09/05/16 22:38 Range/Units Total Creatine Kinase 687 404 39-308 U/L Creatine Kinase MB 39.5 21.0 0.5-3.6 ng/ml Creatine Kinase MB Ratio 5.7 5.2 0-3.0 Troponin I 20.800 10.900 0-0.045 ng/ml Bedside Glucose 106 91 70-99 mg/dl Test 09/06/16 05:56 Range/Units White Blood Count 4.75 4.8-10.8 K/uL Red Blood Count 4.90 4.7-6.1 M/uL Hemoglobin 15.0 14.0-18.0 g/dL Hematocrit 46.1 42-52 % Mean Corpuscular Volume 94.1 80-100 fL Mean Corpuscular Hemoglobin 30.6 25-34 pg Mean Corpuscular Hemoglobin Concent 32.5 32-36 g/dl Platelet Count 219 130-400 K/uL Mean Platelet Volume 10.6 7.4-10.4 fL Neutrophils (%) (Auto) 49.8 % Lymphocytes (%) (Auto) 34.7 % Monocytes (%) (Auto) 10.7 % Eosinophils (%) (Auto) 4.4 % Basophils (%) (Auto) 0.2 % Neutrophils # (Auto) 2.36 1.4-6.5 K/uL Lymphocytes # (Auto) 1.65 1.2-3.4 K/uL Monocytes # (Auto) 0.51 0.11-0.59 K/uL Eosinophils # (Auto) 0.21 0-0.5 K/uL Basophils # (Auto) 0.01 0-0.2 K/uL RDW Standard Deviation 45.8 36.4-46.3 fL RDW Coefficient of Variation 13.3 11.5-14.5 % Immature Granulocyte % (Auto) 0.2 % Immature Granulocyte # (Auto) 0.01 0.00-0.02 K/uL Sodium Level 143 136-145 mmol/L Potassium Level 3.9 3.5-5.1 mmol/L Chloride Level 112 98-107 mmol/L Carbon Dioxide Level 25 21-32 mmol/L Anion Gap 6.0 3-11 mmol/L Blood Urea Nitrogen 13 7-18 mg/dl Creatinine 0.99 0.60-1.40 mg/dl Est Creatinine Clear Calc Drug Dose 89.2 ml/min Estimated GFR () 92.9 Estimated GFR (Non- 80.2 BUN/Creatinine Ratio 13.4 10-20 Random Glucose 89 70-99 mg/dl Calcium Level 7.9 8.5-10.1 mg/dl
--- NOTE | 2016-09-06 14:17 | CARDIOLOGY PROGRESS NOTE ---
DATE: 09/06/2016 DATE: 09/06/2016. HISTORY OF PRESENT ILLNESS: The patient was seen by me this morning in his intensive care unit room. He is resting comfortably. He denies any chest or arm comfort or other anginal type pains since his successful PCI procedure yesterday morning. No orthopnea or PND. No dyspnea. No palpitations, lightheadedness, or syncope. No pain or bleeding at his right radial catheterization site. No right hand pain. No abdominal pain or nausea. No urinary complaints. No symptoms of bleeding. No cerebrovascular complaints. He does complain of constipation. MEDICATIONS: This morning were metoprolol tartrate 12.5 mg b.i.d., lisinopril 5 mg daily, pantoprazole 40 mg b.i.d., atorvastatin 80 mg daily, aspirin 81 mg daily, clopidogrel 75 mg daily. ALLERGIES AND ADVERSE DRUG REACTIONS: None. MONITOR HISTORY: Since admission to intensive care unit reviewed by me. Sinus rhythm. Occasional premature ventricular beat. No ventricular tachycardia. PHYSICAL EXAMINATION: VITAL SIGNS: This morning with oral temperature 36.5, pulse 67, blood pressure 124/83. Blood pressure 2 hours later 147/80. Pulse oximetry room air 95-97%. NECK: No jugular venous distention. LUNGS: Clear. No rales or wheezes. Normal respiratory effort. HEART: Regular rate and rhythm. S1, S2 normal. No S3 or S4. 2/6 systolic murmur second right intercostal space. No diastolic murmur or rub. ABDOMEN: Soft. Nontender. No palpable masses or organomegaly. No bruits. EXTREMITIES: Right radial catheterization site without bleeding or hematoma. No evidence of arterial insufficiency in the right hand. NEUROLOGIC: Alert and oriented x3. Motor grossly intact. PSYCHIATRIC: Affect is normal. SKIN: No rashes noted. DATA: Electrocardiogram this morning with sinus bradycardia, rate 54 beats per minute. Left axis deviation, evolving anterior myocardial infarction. Echocardiogram performed yesterday and reviewed by me shows LV ejection fraction approximately 40%. Anteroapical akinesis. Inferoapical akinesis. Distal septal akinesis, distal anterior hypokinesis, basal inferior and septal akinesis, and hypokinesis of the mid anterior wall. Moderate LVH. Type 2 left ventricular diastolic dysfunction. There is a possible left ventricular apical thrombus present. LABORATORY DATA: Today with WBC 4.75, hemoglobin 15.0, hematocrit 46.1, platelet count 219. Metabolic profile: Sodium 143, potassium 3.9, chloride 112, carbon dioxide 25, BUN 13, creatinine 0.99, random glucose 89. Peak troponin I was 20.800. Peak CK total was 774 with an associated peak CK-MB of 45.2. Lipid profile with triglycerides 63, total cholesterol 207, direct LDL 153, HDL 36. Hemoglobin A1c 5.9. ASSESSMENT: 1. Status post acute anteroapical myocardial infarction secondary to total mid left anterior descending occlusion. Successful emergency intervention to the mid left anterior descending occlusion. Deployment of a 3.5 x 18 mm drug-eluting stent. No residual stenosis. LUKE 3 flow in the LAD and its diagonal branches following the procedure. 2. 100% very proximal right coronary artery occlusion. Left to right collateral flow. 3. Moderate left ventricular systolic dysfunction. 4. No post-PCI angina, heart failure, or significant arrhythmia. 5. No vascular complications at the right radial catheterization site. 6. Stable renal function post procedure. 7. Stable platelet count. He was on intravenous Integrilin for 18 hours. He is on aspirin and clopidogrel. 8. Possible apical left ventricular mural thrombus. 9. Mildly elevated blood pressure later this morning. PLAN: 1. Change metoprolol to metoprolol succinate ER 25 mg daily. 2. Increase lisinopril to 10 mg daily. 3. Continue maximum atorvastatin dose. He has significantly elevated direct LDL. 4. Continue dual antiplatelet therapy. Ideally would like him to be on dual antiplatelet therapy for at least 1 year. Aspirin therapy indefinitely. 5. Will start anticoagulation therapy with Xarelto. I am aware that this is not an approved indication for Xarelto (intracavitary LV thrombus). This was discussed with the patient. He is agreeable to starting on the Xarelto. The alternative of being placed on intravenous heparin and warfarin were discussed with him. He agrees with the decision for Xarelto therapy. This was also discussed with the nursing staff and the pharmacy staff by me. 6. Transfer to telemetry unit. 7. Increase activity. 8. Anticipate the patient can be discharged home tomorrow. 9. Increase activity. Walk in the sosa as tolerated. I will be away on September [address] Aurelio Baron will be covering for me in the interim. This was discussed with the patient. Dr. Baron is also aware.
[2016-09-07 03:47] VITALS: BP 143/86; PULSE 66; TEMP 36.5; O2SAT 98
[2016-09-07 06:29] LABS: BASO % 0.8 %; BASO ABS # 0.04 K/uL (0-0.2); COMPLETE YES; EOS % 5.9 %; HEMATOCRIT 47.5 % (42-52); IG% 0.2 %; LYMPH % 33.3 %; LYMPH ABS # 1.63 K/uL (1.2-3.4); MEAN CELL VOLUME 93.9 fL (80-100); MEAN CORPUSCULAR HEMOGLOBIN 30.4 pg (25-34); MEAN CORPUSCULAR HGB CONC 32.4 g/dl (32-36); MEAN PLATELET VOLUME 10.7 fL (7.4-10.4); MONO % 10.6 %; NEUT % 49.2 %; PLATELET COUNT 218 K/uL (130-400); RED BLOOD COUNT 5.06 M/uL (4.7-6.1); WHITE BLOOD COUNT 4.89 K/uL (4.8-10.8)
[2016-09-07 06:56] LABS: BUN/CREATININE RATIO 12.6 (10-20); CALCIUM 8.4 mg/dl (8.5-10.1); CREATININE 0.99 mg/dl (0.60-1.40); POTASSIUM 3.9 mmol/L (3.5-5.1)
[2016-09-07 07:13] VITALS: BP 133/84; PULSE 59; TEMP 36.5; O2SAT 97
[2016-09-07] MEDS: PANTOprazole SOD 40 MG TAB PO SCH (07:51)
[2016-09-07] MEDS: ASPIRIN 81 MG ECTAB PO SCH (07:52)
[2016-09-07] MEDS: CLOPIDOGREL BISULFATE 75 MG TAB PO SCH (07:53)
[2016-09-07] MEDS: ATORVASTATIN 40 MG TAB PO SCH (07:53)
[2016-09-07 08:00] VITALS: O2SAT 97
[2016-09-07] MEDS ORDERED: METOPROLOL SUCC 25MG EXT REL TAB PO SCH (09:00)
[2016-09-07] MEDS ORDERED: LISINOPRIL 5 MG TAB PO SCH (09:00)
--- NOTE | 2016-09-07 10:32 | Cardiology Follow-Up ---
Subjective Subjective Date of Service: September 07, 2016. Pt evaluation today including: conversation w/ patient, conversation w/ family , physical exam, chart review, lab review, review of studies, conversation w/ e business consultant, review of inpatient medication list Additional Details: Feeling well. No chest pain overnight. Ready to go home. Tele reviewed - sinus tamika down to 40s overnight. Few PACs/PVCs Problem List Medical Problems: (1) GERD (gastroesophageal reflux disease) Status: Chronic (2) Seasonal allergies Status: Chronic (3) STEMI (ST elevation myocardial infarction) Status: Acute Review of Systems Constitutional: No chills, No fever Respiratory: No cough, No sputum Cardiac: No chest pain Abdomen: No nausea, No pain Male : No dysuria Heme: No abnormal bleeding/bruising Endo: + fatigue Skin: No rash Objective Vital Signs Last Vital Signs Documentation Date Time Temp Pulse Resp B/P Pulse Ox O2 Delivery O2 Flow Rate FiO2 09/07/16 08:00 97 Room Air 09/07/16 07:13 36.5 59 20 133/84 09/05/16 04:53 2.0 Physical Exam: General Appearance: no apparent distress ENT: hearing grossly normal, pharynx normal Neck: supple Respiratory/Chest: lungs clear, normal breath sounds Cardiovascular: regular rate, rhythm, no edema Abdomen: non tender, soft Extremities: normal inspection, no pedal edema, + pertinent finding (mild ecchymosis around cath site. Intact distal pulses and sensation) Neurologic/Psychiatric: alert, normal mood/affect Skin: warm/dry, no rash Lymphatic: no adenopathy Assessment and Plan 1. Anterior STEMI 2. Mild to moderate LV dysfunction 3. Possible LV thrombus 4. Hypertension 5. GERD Feeling well with no recurrent chest pain. From a cardiac standpoint OK for discharge. Continue DAPT with ASA/Plavix Continue Xarelto 20 mg daily until follow-up echo as an outpatient Continue on high-intensity statin, metoprolol/lisinopril --> will continue to titrate as an outpatient. Would also continue protonix Can follow-up with Cardiology in 2 weeks. Medications: Current Inpatient Medications Medications (Trade) Dose Ordered Sig/Leia Route Start Time Stop Time Status Last Admin Dose Admin Atropine Sulfate (Atropine Sulfate 0.1MG/Ml Inj) 0.5 mg ONE PRN IV 09/05/16 06:45 10/05/16 06:44 Ondansetron HCl (Zofran Inj) 4 mg Q6H PRN IV 09/05/16 06:45 10/05/16 06:44 Aspirin (Ecotrin Tab) 81 mg QAM PO 09/06/16 09:00 10/06/16 08:59 09/07/16 07:52 81 MG Atorvastatin Calcium (Lipitor Tab) 80 mg QAM PO 09/05/16 09:00 10/05/16 08:59 09/07/16 07:53 80 MG Acetaminophen (Tylenol Tab) 650 mg Q4H PRN PO 09/05/16 06:45 10/05/16 06:44 09/06/16 19:17 650 MG Morphine Sulfate 2 mg 2 mg Q5M PRN IV 09/05/16 06:45 09/19/16 06:44 Lorazepam/Syringe (Ativan Inj/ Syringe) 0.25 ml @ 1 mls/min Q6H PRN IV 09/05/16 06:45 10/05/16 06:44 Pantoprazole Sodium (Protonix Tab) 40 mg BID PO 09/05/16 21:00 10/05/16 20:59 09/07/16 07:51 40 MG Clopidogrel Bisulfate (plAVix TAB) 75 mg QAM PO 09/06/16 09:00 10/06/16 08:59 09/07/16 07:53 75 MG Lorazepam (Ativan Inj) 0.5 mg Q6H PRN IV 09/05/16 07:00 10/05/16 06:59 Nitroglycerin (Nitrostat Tab) 0.4 mg UD PRN SL 09/05/16 07:00 10/05/16 06:59 Lisinopril (Zestril Tab) 10 mg QAM PO 09/07/16 09:00 10/07/16 08:59 09/07/16 07:52 10 MG Rivaroxaban (Xarelto Tab) 20 mg QDD PO 09/06/16 11:15 10/06/16 11:14 09/06/16 12:25 20 MG Metoprolol Succinate (Toprol Xl Tab) 25 mg QAM PO 09/07/16 09:00 10/07/16 08:59 09/07/16 07:54 25 MG Lab Results: 09/07/16 05:31 Red Blood Count 5.06, Mean Corpuscular Volume 93.9, Mean Corpuscular Hemoglobin 30.4, Mean Corpuscular Hemoglobin Concent 32.4, Mean Platelet Volume 10.7, Neutrophils (%) (Auto) 49.2, Lymphocytes (%) (Auto) 33.3, Monocytes (%) (Auto) 10.6, Eosinophils (%) (Auto) 5.9, Basophils (%) (Auto) 0.8, Neutrophils # (Auto ) 2.40, Lymphocytes # (Auto) 1.63, Monocytes # (Auto) 0.52, Eosinophils # (Auto ) 0.29, Basophils # (Auto) 0.04 09/07/16 05:31 Test 09/07/16 05:31 White Blood Count 4.89 K/uL (4.8-10.8) Red Blood Count 5.06 M/uL (4.7-6.1) Hemoglobin 15.4 g/dL (14.0-18.0) Hematocrit 47.5 % (42-52) Mean Corpuscular Volume 93.9 fL (80-100) Mean Corpuscular Hemoglobin 30.4 pg (25-34) Mean Corpuscular Hemoglobin Concent 32.4 g/dl (32-36) Platelet Count 218 K/uL (130-400) Mean Platelet Volume 10.7 fL (7.4-10.4) Neutrophils (%) (Auto) 49.2 % Lymphocytes (%) (Auto) 33.3 % Monocytes (%) (Auto) 10.6 % Eosinophils (%) (Auto) 5.9 % Basophils (%) (Auto) 0.8 % Neutrophils # (Auto) 2.40 K/uL (1.4-6.5) Lymphocytes # (Auto) 1.63 K/uL (1.2-3.4) Monocytes # (Auto) 0.52 K/uL (0.11-0.59) Eosinophils # (Auto) 0.29 K/uL (0-0.5) Basophils # (Auto) 0.04 K/uL (0-0.2) RDW Standard Deviation 45.6 fL (36.4-46.3) RDW Coefficient of Variation 13.3 % (11.5-14.5) Immature Granulocyte % (Auto) 0.2 % Immature Granulocyte # (Auto) 0.01 K/uL (0.00-0.02) Anion Gap 6.0 mmol/L (3-11) Est Creatinine Clear Calc Drug Dose 89.2 ml/min Estimated GFR () 92.9 Estimated GFR (Non- 80.2 BUN/Creatinine Ratio 12.6 (10-20) Calcium Level 8.4 mg/dl (8.5-10.1)
--- NOTE | 2016-09-07 11:21 | Progress Note ---
Internal Med Progress Note Date of Service: September 07, 2016. Provider Documentation: SUBJECTIVE: The patient was seen and examined Some epigastric discomfort Denies any other symptoms No arrhythmia and or symptoms noted Remains stable Ambulating well OBJECTIVE: Vital Signs-as noted below Exam: General-No distress at rest Eyes-normal ENT-normal Neck-supple Lungs-clear to ausucltate bilaterally Heart-Regular,no murmur appreciated Abdomen-benign,no masses,bowel sound present Extremities-no edema Neuro-AAOx3 Lab data as noted below. ASSESSMENT & PLAN: ST Elevation PA s/p AVNI placed in LAD Heart Alert through ED S/P cardiac catheterization found to have a 99% occluded mid LAD Treated with PTCA with AVNI placement to to with successful reperfusion. Received Integrilin Post-cath Rx including ASA, Statin, Beta Essie, Lisinopril. ECHO done::n 1. Normal left ventricular size with moderately reduced systolic function. EF 40%. RCA and LAD infarct (akinesis/dyskinesis of apex, distal inferior, and distal septal wall segments; akinesis of distal anterior, distal lateral, basal inferior, and basal septal wall; hypokinesis of mid anterior wall ). Moderate concentric left ventricular hypertrophy. Type 2 diastolic dysfunction. Possible apical thrombus. n 2. No significant valvular abnormalities visualized. n 3. Technically difficult study, enhanced with IV Definity. n 4. No prior study available for comparison. Patient remains symptoms free Monitor is not showing any arrhythmia Has been on BB,ACEI,Statin,Aspirin and Plavix (for 1 year and then Aspirin for lifelong) Xarelto for Apical thrombus Remains stable Ambulating well Discharge home today Apical Thrombus Has Low EF too Started on Xarelto Further recommendation as per Cardiology TOBACCO ABUSE Discussed need for complete tobacco abstention Smoking cessation Nicotine Patch Hyperlipidemia LDL-153 and HDL -36 Started on Statin -highest possible dose GERD. Continue Prilosec. DVT prophylaxis. SCDs for now. Disposition: Close monitor in the ICU. Level 1 full code. Discharge today Vital Signs: Date Time Temp Pulse Resp B/P Pulse Ox O2 Delivery O2 Flow Rate FiO2 09/07/16 08:00 97 Room Air 09/07/16 07:13 36.5 59 20 133/84 97 Room Air 09/07/16 03:47 36.5 66 18 143/86 98 Room Air 09/07/16 03:30 Room Air 09/06/16 23:30 Room Air 09/06/16 23:29 36.4 57 18 144/94 98 Room Air 09/06/16 20:00 Room Air 09/06/16 19:19 36.6 78 18 123/72 97 Room Air 09/06/16 16:00 Room Air 09/06/16 15:43 36.8 62 18 132/81 98 Room Air 09/06/16 11:52 36.5 58 18 130/83 97 Room Air 09/06/16 11:46 36.5 57 14 97 Lab Results: Results Past 24 Hours Test 09/07/16 05:31 Range/Units White Blood Count 4.89 4.8-10.8 K/uL Red Blood Count 5.06 4.7-6.1 M/uL Hemoglobin 15.4 14.0-18.0 g/dL Hematocrit 47.5 42-52 % Mean Corpuscular Volume 93.9 80-100 fL Mean Corpuscular Hemoglobin 30.4 25-34 pg Mean Corpuscular Hemoglobin Concent 32.4 32-36 g/dl Platelet Count 218 130-400 K/uL Mean Platelet Volume 10.7 7.4-10.4 fL Neutrophils (%) (Auto) 49.2 % Lymphocytes (%) (Auto) 33.3 % Monocytes (%) (Auto) 10.6 % Eosinophils (%) (Auto) 5.9 % Basophils (%) (Auto) 0.8 % Neutrophils # (Auto) 2.40 1.4-6.5 K/uL Lymphocytes # (Auto) 1.63 1.2-3.4 K/uL Monocytes # (Auto) 0.52 0.11-0.59 K/uL Eosinophils # (Auto) 0.29 0-0.5 K/uL Basophils # (Auto) 0.04 0-0.2 K/uL RDW Standard Deviation 45.6 36.4-46.3 fL RDW Coefficient of Variation 13.3 11.5-14.5 % Immature Granulocyte % (Auto) 0.2 % Immature Granulocyte # (Auto) 0.01 0.00-0.02 K/uL Sodium Level 143 136-145 mmol/L Potassium Level 3.9 3.5-5.1 mmol/L Chloride Level 110 98-107 mmol/L Carbon Dioxide Level 27 21-32 mmol/L Anion Gap 6.0 3-11 mmol/L Blood Urea Nitrogen 13 7-18 mg/dl Creatinine 0.99 0.60-1.40 mg/dl Est Creatinine Clear Calc Drug Dose 89.2 ml/min Estimated GFR () 92.9 Estimated GFR (Non- 80.2 BUN/Creatinine Ratio 12.6 10-20 Random Glucose 104 70-99 mg/dl Calcium Level 8.4 8.5-10.1 mg/dl
[2016-09-07 11:37] VITALS: BP 150/81; PULSE 61; TEMP 36.6; O2SAT 98
[2016-09-07 12:00] VITALS: O2SAT 97
[2016-09-07] MEDS ORDERED: XRL20 PO (13:35)
[2016-09-07] MEDS ORDERED: PLV75 PO (13:35)
[2016-09-07] MEDS ORDERED: ASPEC81 PO (13:35)
[2016-09-07] MEDS ORDERED: LISI-461 PO (13:35)
[2016-09-07] MEDS ORDERED: PRT40 PO (13:35)
[2016-09-07] MEDS ORDERED: TPRSR25 PO (13:35)
[2016-09-07] MEDS ORDERED: LPT40 PO (13:35)
--- NOTE | 2016-09-07 13:38 | Discharge Instructions ---
Discharge Instructions Date of Service September 07, 2016. Admission Reason for Admission: STEMI Discharge Discharge Diagnosis / Problem: STEMI s/p AVNI stent in LAD Discharge Goals Goal(s): Prevent Disease Progression Activity Recommendations Activity Limitations: resume your previous activity . Instructions / Follow-Up Instructions / Follow-Up Dr Olivo on 09/12/16 at 11:05 AM.Please keep appointment with your Cardiology Current Hospital Diet Patient's current hospital diet: AHA Diet (Heart Healthy) Discharge Diet Recommended Diet: AHA Diet (Heart Healthy), Low Sodium Diet (2gm Na) Pending Studies Studies pending at discharge: no Laboratory Results Hemoglobin A1c Test 09/05/16 04:05 Range/Units Estimated Average Glucose 123 mg/dl Hemoglobin A1c 5.9 H 4.5-5.6 % Lipid Panel Test 09/05/16 07:09 Range/Units Triglycerides Level 63 0-150 mg/dl Cholesterol Level 207 H 0-200 mg/dl HDL Cholesterol 36 mg/dl LDL Cholesterol Direct 153 mg/dl Cholesterol/HDL Ratio 5.8 LDL Cholesterol, Calculated mg/dl Medical Emergencies . Who to Call and When: Medical Emergencies: If at any time you feel your situation is an emergency, please call 911 immediately. . Non-Emergent Contact Non-Emergency issues call your: Primary Care Provider . Past History Medical & Surgical History: (1) S/P angioplasty with stent (2) STEMI (ST elevation myocardial infarction) (3) CAD (coronary artery disease), [place] coronary artery (4) Sinusitis (5) Seasonal allergies (6) HTN (hypertension) (7) BPH (benign prostatic hyperplasia) (8) Hyperlipidemia (9) Tobacco abuse . "Provider Documentation" section prepared by Kvng Aponte. . VTE Core Measure Inpt VTE Proph given/why not?: Other Anticoagulation (Xarelto)
[2016-09-07 13:43] VITALS: BP 150/81; PULSE 61; TEMP 36.6; O2SAT 97
--- NOTE | 2016-09-08 09:22 | Discharge Summary ---
Discharge Summary Date of Service September 08, 2016. Discharge Summary Admission Date: September 05, 2016 at 07:03 Discharge Date: September 07, 2016 Discharge Disposition: Home Principal Diagnosis: STEMI s/p AVNI stent in LAD Secondary Diagnoses/Problems: Please see H&P and Hospital Progress note Procedures: Cardiac Cath,AVNI Stent placement in LAD Consultations: Cardiology Medication Reconciliation New Medications: Lisinopril (Lisinopril) 10 Mg Tab 10 MG PO QD, #30 Aspirin (Aspirin EC Low Dose) 81 Mg Ectab 81 MG PO QAM for 30 Days, #30 Atorvastatin (Atorvastatin Calcium) 40 Mg Tab 80 MG PO QAM for 30 Days, #60 TAB Clopidogrel Bisulfate (Clopidogrel) 75 Mg Tab 75 MG PO QAM for 30 Days, #30 TAB Metoprolol Succinate (Metoprolol Succinate ER) 25 Mg Tabcr 25 MG PO QAM for 30 Days, #30 Pantoprazole (Pantoprazole Sodium) 40 Mg Tab 40 MG PO DAILY for 30 Days, #30 TAB Rivaroxaban (Xarelto) 20 Mg Tab 20 MG PO QDD for 30 Days, #30 TAB Continued Medications: Fexofenadine-Pseudoephedrine (Summer-D 24 Hour Allergy) 1 Tab Tab 1 TAB PO DAILY Discontinued Medications: Omeprazole (Prilosec) 20 Mg Capcr 20 MG PO BID Admission Information HPI (per Admitting provider): DATE OF ADMISSION: 09/05/2016 CHIEF COMPLAINT: Chest pain and found to have ST elevated NH. HISTORY OF PRESENT ILLNESS: This is a 66-year-old male with past medical history significant for BPH, GERD, comes with chest pain. The patient states since last 1 week he is having epigastric pain no radiation and was taking Prilosec to relieve his pain. The pain used to get better when he was resting.He mowed his grass yesterday and he had no exacerbation pain. He thought it was getting better, but last night he woke up with severe lower chest pain. He never had this kind of pain and was radiating to his left arm and he has nausea and vomited and he came to In the ER. In the ER he was found to have ST elevated NH in leads V2, V3, V4 and was taken to cardiac blood and plasma laboratory assistant and found to have mid LAD complete occlusion, status post stent placement. Currently chest pain almost resolved, hemodynamically stable. Denies any shortness of breath, no cough, no fever, no chills. No headaches, no blurred vision, no abdominal pain. Normal bowel and bladder movements. Appetite is okay. Otherwise, patient is healthy and is not on any medications except Prilosec. ALLERGIES: No known drug allergies. PAST MEDICAL HISTORY: As mentioned above. PAST SURGICAL HISTORY: Colonoscopy, EGD with biopsies. MEDICATIONS: The patient is on omeprazole 20 mg p.o. b.i.d., Summer 1 tablet p.o. 2 times a day as needed. FAMILY HISTORY: Significant for mother had diabetes. Son has asthma. Sister has heart disease. SOCIAL HISTORY: , smokes a pipe. Drinks 1-2 glasses of Rum every day. No drug use. REVIEW OF SYMPTOMS: As per HPI. Rest of review of systems negative. PHYSICAL EXAMINATION: GENERAL: The patient is moderate build, not in distress. VITAL SIGNS: Temperature 36.4, pulse 71, respiratory rate 14, blood pressure 117/77, oxygen 96% on room air. HEENT: No pallor, no icterus. NECK: No JVD, no neck masses, no carotid bruits. CARDIOVASCULAR: S1, S2 heard, regular rate and rhythm, no murmur, no gallop. RESPIRATORY SYSTEM: Clear to auscultation bilaterally. No wheezing, no crackles. ABDOMEN: Soft, bowel sounds present. Nontender. No distention. CENTRAL NERVOUS SYSTEM: Cranial nerves alert and oriented x3. Moves extremities. EXTREMITIES: No edema. No erythema. Cardiac catheterization right wrist site. No drainage seen. LABORATORIES: WBC 4.6, hemoglobin 16.7, hematocrit 14.8, platelets 238. Sodium 143, potassium 3.6, chloride 103, CO2 25, BUN 13, creatinine 1.4, serum glucose 115, ioniz calcium 1.15. Point of care troponin 0.5. Chest x-ray no acute findings seen. EKG: Sinus rhythm with rate of 76, ST elevations seen in leads V2, V3 and V4. ASSESSMENT AND PLAN: 66-year-old male who presents with ST elevated myocardial infarction. 1. ST elevated NH, heart alert called and status post cardiac catheterization and was found to have complete occlusion of the mid LAD and status post stent to the LAD. The patient's symptoms almost resolved. Post-cardiac catheterization care and cardiac medications as per cardiology. Close monitor in the ICU. Will check fasting lipid profile and hba1c levels. 2. GERD. Continue Prilosec. 3. DVT prophylaxis. SCDs for now. 4. Disposition: Close monitor in the ICU. Level [address] Course [address] Elevation NH s/p AVNI placed in LAD Heart Alert through ED S/P cardiac catheterization found to have a 99% occluded mid LAD Treated with PTCA with AVNI placement to to with successful reperfusion. Received Integrilin Post-cath Rx including ASA, Statin, Beta Essie, Lisinopril. ECHO done::n 1. Normal left ventricular size with moderately reduced systolic function. EF 40%. RCA and LAD infarct (akinesis/dyskinesis of apex, distal inferior, and distal septal wall segments; akinesis of distal anterior, distal lateral, basal inferior, and basal septal wall; hypokinesis of mid anterior wall ). Moderate concentric left ventricular hypertrophy. Type 2 diastolic dysfunction. Possible apical thrombus. n 2. No significant valvular abnormalities visualized. n 3. Technically difficult study, enhanced with IV Definity. n 4. No prior study available for comparison. Patient remains symptoms free Monitor is not showing any arrhythmia Has been on BB,ACEI,Statin,Aspirin and Plavix (for 1 year and then Aspirin for lifelong) Xarelto for Apical thrombus Remains stable Ambulating well Discharge home today Apical Thrombus Has Low EF too Started on Xarelto Further recommendation as per Cardiology TOBACCO ABUSE Discussed need for complete tobacco abstention Smoking cessation Nicotine Patch Hyperlipidemia LDL-153 and HDL -36 Started on Statin -highest possible dose GERD. Continue Prilosec. DVT prophylaxis. SCDs for now. Disposition: Close monitor in the ICU. Level 1 full code. Discharge today Total time spent on discharge = 35 minutes This includes examination of the patient, discharge planning, medication reconciliation, and communication with other providers. Discharge Instructions Date of Service September 07, 2016. Admission Reason for Admission: STEMI Discharge Discharge Diagnosis / Problem: STEMI s/p AVNI stent in LAD Discharge Goals Goal(s): Prevent Disease Progression Activity Recommendations Activity Limitations: resume your previous activity . Instructions / Follow-Up Instructions / Follow-Up Dr Olivo on 09/12/16 at 11:05 AM.Please keep appointment with your Cardiology Current Hospital Diet Patient's current hospital diet: AHA Diet (Heart Healthy) Discharge Diet Recommended Diet: AHA Diet (Heart Healthy), Low Sodium Diet (2gm Na) Pending Studies Studies pending at discharge: no Laboratory Results Hemoglobin A1c Test 09/05/16 04:05 Range/Units Estimated Average Glucose 123 mg/dl Hemoglobin A1c 5.9 H 4.5-5.6 % Lipid Panel Test 09/05/16 07:09 Range/Units Triglycerides Level 63 0-150 mg/dl Cholesterol Level 207 H 0-200 mg/dl HDL Cholesterol 36 mg/dl LDL Cholesterol Direct 153 mg/dl Cholesterol/HDL Ratio 5.8 LDL Cholesterol, Calculated mg/dl Medical Emergencies . Who to Call and When: Medical Emergencies: If at any time you feel your situation is an emergency, please call 911 immediately. . Non-Emergent Contact Non-Emergency issues call your: Primary Care Provider . Past History Medical & Surgical History: (1) S/P angioplasty with stent (2) STEMI (ST elevation myocardial infarction) (3) CAD (coronary artery disease), [place] coronary artery (4) Sinusitis (5) Seasonal allergies (6) HTN (hypertension) (7) BPH (benign prostatic hyperplasia) (8) Hyperlipidemia (9) Tobacco abuse . "Provider Documentation" section prepared by Kvng Aponte. . VTE Core Measure Inpt VTE Proph given/why not?: Other Anticoagulation (Xarelto) <Electronically signed by Kvng Aponte M.D.> Additional Copies To Eric Olivo D.O.
== END 2016-09-07 14:27 | disposition home or self-care (01) | DRG 247 ==
LOC: ENRESERVTM → ENRESERVDT → C.EDB 03:55 → UNDOADMIN 06:40 → C.MSICU 06:40 → C.2T 09-06 10:23
PROVIDERS: ADMIT Internal Medicine; ATTEND Internal Medicine
PROC: 4A023N7 Measurement of Cardiac Sampling and Pressure, Left Heart, Percutaneous Approach (ICD-10-PCS; principal; 2016-09-05 05:45)
PROC: B2151ZZ Fluoroscopy of Left Heart using Low Osmolar Contrast (ICD-10-PCS; principal; 2016-09-05 05:45)
PROC: 027034Z Dilation of Coronary Artery, One Artery with Drug-eluting Intraluminal Device, Percutaneous Approach (ICD-10-PCS; principal; 2016-09-05 05:45)
PROC: B2111ZZ Fluoroscopy of Multiple Coronary Arteries using Low Osmolar Contrast (ICD-10-PCS; principal; 2016-09-05 05:45)
DX: I21.3 ST elevation (STEMI) myocardial infarction of unspecified site (principal); I23.6 Thrombosis of atrium, auricular appendage, and ventricle as current complications following acute myocardial infarction; F17.290 Nicotine dependence, other tobacco product, uncomplicated; E78.5 Hyperlipidemia, unspecified; K21.9 Gastro-esophageal reflux disease without esophagitis; I10 Essential (primary) hypertension; I51.9 Heart disease, unspecified; R00.1 Bradycardia, unspecified; R11.10 Vomiting, unspecified; R94.39 Abnormal result of other cardiovascular function study; I25.10 Atherosclerotic heart disease of native coronary artery without angina pectoris; J30.2 Other seasonal allergic rhinitis; Z82.49 Family history of ischemic heart disease and other diseases of the circulatory system; Z79.899 Other long term (current) drug therapy

== ENCOUNTER 2016-09-13 17:18 | Emergency (ER) | payer BC ==
[~2016-09-13] VITALS: Ht 177.8 cm; Wt 97.1 kg
[~2016-09-13 17:18] MED LIST changes: +ASPEC81 PO; -FEXO1TAB46 PO; +FEXO1TAB58 PO; +LISI-461 PO; +LPT40 PO; -OMEP20CA9 PO; +PLV75 PO; -PRD20 PO; +PRT40 PO; +TPRSR25 PO; +XRL20 PO
[2016-09-13 17:23] VITALS: TEMP 36.8; Ht 177.8 cm; Wt 97.1 kg
[2016-09-13 17:54] LABS: BASO % 1.2 %; BASO ABS # 0.06 K/uL (0-0.2); COMPLETE YES; EOS % 5.7 %; HEMATOCRIT 46.1 % (42-52); IG% 0.4 %; LYMPH % 44.4 %; LYMPH ABS # 2.19 K/uL (1.2-3.4); MEAN CELL VOLUME 93.3 fL (80-100); MEAN CORPUSCULAR HGB CONC 33.2 g/dl (32-36); MEAN PLATELET VOLUME 10.7 fL (7.4-10.4); MONO % 10.5 %; NEUT % 37.8 %; PLATELET COUNT 273 K/uL (130-400); RED BLOOD COUNT 4.94 M/uL (4.7-6.1); WHITE BLOOD COUNT 4.93 K/uL (4.8-10.8)
--- NOTE | 2016-09-13 18:00 | DIAGNOSTIC IMAGING REPORT ---
CHEST ONE VIEW PORTABLE CLINICAL HISTORY: Chest pain. COMPARISON STUDY: Chest radiograph September 05, 2016. FINDINGS: Lung volumes are normal. Lungs are clear. There is no pneumothorax or pleural effusion. Cardiac size is at the upper limits of normal. Pulmonary vascularity is normal. IMPRESSION: No acute cardiopulmonary findings. Electronically signed by: Toan Marcos M.D. 09/13/2016 5:59 PM Dictated Date/Time: 09/13/2016 5:58 PM
[2016-09-13 18:30] LABS: CALCIUM 8.6 mg/dl (8.5-10.1); CREATININE 1.1 mg/dl (0.60-1.40); POTASSIUM 4.1 mmol/L (3.5-5.1)
[2016-09-13 18:39] LABS: CKMB/CK RATIO 2.4 (0-3.0)
[2016-09-13 20:10] VITALS: O2SAT 94
--- NOTE | 2016-09-13 21:21 | DIAGNOSTIC IMAGING REPORT ---
MRI OF THE BRAIN WITHOUT CONTRAST CLINICAL HISTORY: Left arm and leg numbness, recent GA with apical thrombus COMPARISON STUDY: Head CT February 22, 2015. TECHNIQUE: Utilizing a 1.5 [place]en magnet and dedicated coil, multiplanar, multiecho imaging of the brain was performed without IV contrast. FINDINGS: There are no areas of restricted diffusion. No acute intracranial hemorrhage, midline shift or mass effect is present. There is mild atrophy. Basilar cisterns are patent. There are no extra-axial collections. Flow-voids for the major intracranial vessels are present. A few white matter T2 hyperintense foci suggest mild small vessel disease. Calvarial signal is maintained. There is mild mucosal thickening of the left maxillary sinus as well as mild mucosal thickening within the frontal sinuses. IMPRESSION: No acute intracranial findings. No evidence of acute infarction. Electronically signed by: Toan Marcos M.D. 09/13/2016 9:19 PM Dictated Date/Time: 09/13/2016 9:17 PM
[2016-09-13 22:24] VITALS: BP 122/77; PULSE 77; O2SAT 98
--- NOTE | 2016-09-14 01:43 | EMERGENCY ROOM VISIT NOTE ---
History Report prepared by Henrik: Dio Duran Under the Supervision of: Dr. Raf Damon M.D. First contact with patient: 17:29 Chief Complaint: CHEST PAIN Stated Complaint: LEFT AND CHEST PAIN Nursing Triage Summary: Pt states had a AZ last week. Tingling in left arm/leg since this morning, intermittent. "I feel like I have arthritis in my chest, more on the right side." Denies sob, dizziness/lightheaded, n/v. History of Present Illness The patient is a 66 year old male who presents to the Emergency Room with complaints of persistent chest pain today around 0900. He rates the pain as 2/ 10 in severity. The patient states that last week he presented to the emergency department with left arm pain and had an AZ. He had a heart catheterization through his wrist for his AZ. The patient states that he has been taking Plavix regularly. He states that today around 0900 his symptoms of persistent chest pain started along with a tingling in his left arm and left leg. The patient states the pain and tingling were not similar to the symptoms he experience a week ago with his AZ. He additionally notes blurry vision this morning as well. The patient also complains of a left sided headache and lightheadedness. He states that he ate spicy salmon today for lunch that caused some heartburn. The patient's denies any presence of confusion, facial droop, impairment in speech, or history of Transient Ischemic Attack. The patient denies any dyspnea with physical exertion, LOC, fevers, chills, diaphoresis, neck pain, nausea, vomiting, abdominal pain, back pain, melena, hematochezia, urinary symptoms, weakness, lymphadenopathy, rash, or other complaints. Source of History: patient Onset: 0900 Position: chest Symptom Intensity: 2/10 Timing: other (persistent) Associated Symptoms: + headache (left sided) Note: Associated Symptoms: left arm tingling, left leg tingling, blurry vision, lightheadedness Review of Systems See HPI for pertinent positives and negatives. A total of ten systems were reviewed and were otherwise negative. Past Medical & Surgical Medical Problems: (1) BPH (benign prostatic hyperplasia) (2) CAD (coronary artery disease), [place] coronary artery (3) GERD (gastroesophageal reflux disease) (4) HTN (hypertension) (5) Hyperlipidemia (6) Seasonal allergies (7) STEMI (ST elevation myocardial infarction) (8) Tobacco abuse Surgical Problems: (1) H/O colonoscopy (2) H/O esophagogastroduodenoscopy (3) S/P angioplasty with stent Social History Problems: (1) Daily consumption of alcohol Family History Asthma SON Cancer Diabetes mellitus MOTHER Heart disease Hypertension Kidney disease Social History Smoking Status: Current Every Day Smoker Alcohol Use: occasionally Drug Use: none Marital Status: Housing Status: lives with family Occupation Status: employed Current/Historical Medications Scheduled Aspirin (Aspirin EC Low Dose), 81 MG PO QAM Atorvastatin (Atorvastatin Calcium), 80 MG PO QAM Clopidogrel Bisulfate (Clopidogrel), 75 MG PO QAM Fexofenadine-Pseudoephedrine (Summer-D 24 Hour Allergy), 1 TAB PO DAILY Lisinopril (Lisinopril), 10 MG PO QD Metoprolol Succinate (Metoprolol Succinate ER), 25 MG PO QAM Pantoprazole (Pantoprazole Sodium), 40 MG PO DAILY Rivaroxaban (Xarelto), 20 MG PO QDD Allergies Coded Allergies: No Known Allergies (Unverified , 09/13/16) Physical Exam Vital Signs Date Time Temp Pulse Resp B/P Pulse Ox O2 Delivery O2 Flow Rate FiO2 09/13/16 22:24 77 18 122/77 98 09/13/16 20:18 67 22 96 09/13/16 20:10 94 Room Air 09/13/16 20:10 09/13/16 19:48 63 18 96 09/13/16 19:18 63 19 126/76 96 09/13/16 19:15 62 18 126/76 96 Room Air 09/13/16 18:48 66 14 95 09/13/16 18:18 65 15 96 09/13/16 17:48 59 25 97 09/13/16 17:42 98 Room Air 09/13/16 17:39 52 09/13/16 17:23 36.8 60 18 142/81 95 Room Air Physical Exam GENERAL: Awake, alert, well appearing, no distress HENT: Normocephalic, atraumatic. Oropharynx unremarkable. EYES: PERRL. EOMI. Normal conjunctiva. Sclera non-icteric. NECK: Supple. No nuchal rigidity. FROM. No JVD or bruit. RESPIRATORY: CTA CARDIAC: RRR. No murmur. ABDOMEN: Soft, non distended. No tenderness to palpation. No rebound or guarding. No masses. RECTAL: Deferred. MUSCULOSKELETAL: Unremarkable. No edema. No discoloration. Gross motor strength symmetric. NEURO: Cranial nerves 2-12 grossly intact. Normal sensorium. No sensory or motor deficits noted. Speech normal. No pronator drift. SKIN: No rash or jaundice noted. LYMPH: No adenopathy. Medical Decision & Procedures ER Provider Diagnostic Interpretation: Radiology results as stated below per my review and radiologist interpretation: CHEST ONE VIEW PORTABLE CLINICAL HISTORY: Chest pain. COMPARISON STUDY: Chest radiograph September 05, 2016. FINDINGS: Lung volumes are normal. Lungs are clear. There is no pneumothorax or pleural effusion. Cardiac size is at the upper limits of normal. Pulmonary vascularity is normal. IMPRESSION: No acute cardiopulmonary findings. Electronically signed by: Toan Marcos M.D. 09/13/2016 5:59 PM Dictated Date/Time: 09/13/2016 5:58 PM MRI OF THE BRAIN WITHOUT CONTRAST CLINICAL HISTORY: Left arm and leg numbness, recent AZ with apical thrombus COMPARISON STUDY: Head CT February 22, 2015. TECHNIQUE: Utilizing a 1.5 Farheen magnet and dedicated coil, multiplanar, multiecho imaging of the brain was performed without IV contrast. FINDINGS: There are no areas of restricted diffusion. No acute intracranial hemorrhage, midline shift or mass effect is present. There is mild atrophy. Basilar cisterns are patent. There are no extra-axial collections. Flow-voids for the major intracranial vessels are present. A few white matter T2 hyperintense foci suggest mild small vessel disease. Calvarial signal is maintained. There is mild mucosal thickening of the left maxillary sinus as well as mild mucosal thickening within the frontal sinuses. IMPRESSION: No acute intracranial findings. No evidence of acute infarction. Electronically signed by: Toan Marcos M.D. 09/13/2016 9:19 PM Dictated Date/Time: 09/13/2016 9:17 PM Laboratory Results 09/13/16 17:08 Red Blood Count 4.94, Mean Corpuscular Volume 93.3, Mean Corpuscular Hemoglobin 31.0, Mean Corpuscular Hemoglobin Concent 33.2, Mean Platelet Volume 10.7, Neutrophils (%) (Auto) 37.8, Lymphocytes (%) (Auto) 44.4, Monocytes (%) (Auto) 10.5, Eosinophils (%) (Auto) 5.7, Basophils (%) (Auto) 1.2, Neutrophils # (Auto ) 1.86, Lymphocytes # (Auto) 2.19, Monocytes # (Auto) 0.52, Eosinophils # (Auto ) 0.28, Basophils # (Auto) 0.06 09/13/16 17:08 Test 09/13/16 17:08 09/13/16 20:19 White Blood Count 4.93 K/uL (4.8-10.8) Red Blood Count 4.94 M/uL (4.7-6.1) Hemoglobin 15.3 g/dL (14.0-18.0) Hematocrit 46.1 % (42-52) Mean Corpuscular Volume 93.3 fL (80-100) Mean Corpuscular Hemoglobin 31.0 pg (25-34) Mean Corpuscular Hemoglobin Concent 33.2 g/dl (32-36) Platelet Count 273 K/uL (130-400) Mean Platelet Volume 10.7 fL (7.4-10.4) Neutrophils (%) (Auto) 37.8 % Lymphocytes (%) (Auto) 44.4 % Monocytes (%) (Auto) 10.5 % Eosinophils (%) (Auto) 5.7 % Basophils (%) (Auto) 1.2 % Neutrophils # (Auto) 1.86 K/uL (1.4-6.5) Lymphocytes # (Auto) 2.19 K/uL (1.2-3.4) Monocytes # (Auto) 0.52 K/uL (0.11-0.59) Eosinophils # (Auto) 0.28 K/uL (0-0.5) Basophils # (Auto) 0.06 K/uL (0-0.2) RDW Standard Deviation 44.0 fL (36.4-46.3) RDW Coefficient of Variation 12.8 % (11.5-14.5) Immature Granulocyte % (Auto) 0.4 % Immature Granulocyte # (Auto) 0.02 K/uL (0.00-0.02) Anion Gap 7.0 mmol/L (3-11) Est Creatinine Clear Calc Drug Dose 79.3 ml/min Estimated GFR () 81.8 Estimated GFR (Non- 70.6 BUN/Creatinine Ratio 12.0 (10-20) Calcium Level 8.6 mg/dl (8.5-10.1) Total Bilirubin 0.7 mg/dl (0.2-1) Direct Bilirubin 0.1 mg/dl (0-0.2) Aspartate Amino Transf (AST/SGOT) 17 U/L (15-37) Alanine Aminotransferase (ALT/SGPT) 31 U/L (12-78) Alkaline Phosphatase 70 U/L (45-117) Total Creatine Kinase 270 U/L (39-308) Creatine Kinase MB 6.5 ng/ml (0.5-3.6) Creatine Kinase MB Ratio 2.4 (0-3.0) Troponin I 0.137 ng/ml (0-0.045) Total Protein 6.9 gm/dl (6.4-8.2) Albumin 3.7 gm/dl (3.4-5.0) Lipase 153 U/L (73-393) Bedside Troponin I 0.130 ng/ml (0-0.045) Laboratory results reviewed by me ECG Rate (beats per minute): 57 Rhythm: sinus with SA Findings: T-wave inversion (Lateral), ST elevation, other (biphasic T waves anteriorally ) Comparison ECG Date: 09/07/16 Change: no significant change Change: Repeat EKG: sinus bradycardia, 52 beats per minute, similar biphasic t waves, t wave inversions, ED Course 1735: The patient was evaluated in room B04B. A complete history and physical exam was performed. 1737: Dr. Baron, Cardiology, arrived at the patient's bedside for evaluation. 1999: I reevaluated the patient and he is doing well. 2136: I consulted with Dr. Baron, Cardiology. I updated him on the patient's visit. 2154: I reevaluated the patient. Discussed results and discharge instructions: He verbalized understanding and agreement. The patient is ready for discharge. Medical Decision Triage Nursing notes reviewed. The patient's presentation and history were concerning for numbness and recent cardiac stenting. Etiologies such as metabolic, infection, hypo/hyperglycemia, electrolyte abnormalities, cardiac sources, intracerebral event, toxicologic, neurologic, as well as others were entertained. The patient was evaluated. He had an abnormal ECG but this was unchanged. He was evaluated by Dr. Baron of cardiology on arrival. He does not appear to be having an acute coronary syndrome. His numbness that he describes nondermatomal. His neurologic examination did not reveal any focal findings. He had no drift. The patient does have an apical thrombus. He is on aspirin, Plavix, and xarelto. Because of this blood work was obtained. His CBC and chemistry panel were unremarkable. Cardiac troponin is mildly elevated. This is repeated after 3 hours and was unchanged. The patient underwent MR imaging which was negative. He was reassessed. The patient had no residual symptoms. It is difficult to explain the exact etiology of this numbness sensation. There was no evidence of embolic disease at this point in time even though the patient is at rest. He is fully anticoagulated. Cardiology did not feel that this was related to his coronary stenting. The patient desires discharge. I discussed continuing his current medications and having close outpatient follow- up. The patient was in agreement. If he worsens in any way he will be back. By the evaluation outlined above other emergent etiologies such as those listed in the differential, as well as others, were deemed relatively unlikely. The patient and significant other were informed about the findings as listed above. All questions were answered and they were pleased with the treatment. Return instructions were outlined and the patient was discharged in stable condition. The patient was referred to his PCP for follow-up for a recheck of the current condition. The chart was completed utilizing [employer] Speech voice recognition software. Grammatical errors, random word insertions, pronoun errors, and incomplete sentences are an occasional consequence of this system due to software limitations, ambient noise, and hardware issues. Any formal questions or concerns about the content, text, or information contained within the body of this dictation should be directly addressed to the physician for clarification. Impression Primary Impression: Left sided numbness Additional Impression: Left arm numbness Scribe Attestation The scribe's documentation has been prepared under my direction and personally reviewed by me in its entirety. I confirm that the note above accurately reflects all work, treatment, procedures, and medical decision making performed by me. Departure Information Dispostion Home / Self-Care Referrals Eric Olivo D.O. (PCP) Forms HOME CARE DOCUMENTATION FORM, IMPORTANT VISIT INFORMATION Patient Instructions My [facility] Additional Instructions Continue current medications. Follow-up as scheduled. Return to the ER for worsening chest pain, difficulty breathing, fevers, vomiting, worsening of your condition, numbness, weakness, difficulty speaking, or as needed. Problem Qualifiers
== END 2016-09-13 22:26 | disposition home or self-care (01) ==
LOC: C.EDB 17:19
DX: R20.0 Anesthesia of skin (principal); I22.9 Subsequent ST elevation (STEMI) myocardial infarction of unspecified site; N40.0 Benign prostatic hyperplasia without lower urinary tract symptoms; I25.10 Atherosclerotic heart disease of native coronary artery without angina pectoris; K21.9 Gastro-esophageal reflux disease without esophagitis; I10 Essential (primary) hypertension; E78.5 Hyperlipidemia, unspecified; F17.210 Nicotine dependence, cigarettes, uncomplicated; Z95.5 Presence of coronary angioplasty implant and graft; Z82.5 Family history of asthma and other chronic lower respiratory diseases; Z83.3 Family history of diabetes mellitus; Z82.49 Family history of ischemic heart disease and other diseases of the circulatory system; Z84.1 Family history of disorders of kidney and ureter; Z79.01 Long term (current) use of anticoagulants; Z79.82 Long term (current) use of aspirin; Z79.899 Other long term (current) drug therapy

== ENCOUNTER 2016-12-24 10:18 | Emergency (ER) | payer BC ==
[~2016-12-24] VITALS: Ht 177.8 cm; Wt 92.9 kg
[2016-12-24 10:20] VITALS: TEMP 36.4; Ht 177.8 cm; Wt 92.9 kg
--- NOTE | 2016-12-24 10:50 | EMERGENCY ROOM VISIT NOTE ---
History Report prepared by Henrik: Apurva Brown Under the Supervision of: Dr. Reji Buck M.D. First contact with patient: 10:28 Chief Complaint: NOSE BLEED (MINOR) Stated Complaint: NOSEBLEED History of Present Illness The patient is a 66 year old male with a past medical history of CAD status post AVNI to LAD in August of 2016, and hyperlipidemia who presents to the ED with a cc of intermittent nose bleeding beginning last night. The patient states that he was recently taken off of the Lipitor that he was on. He reports that he has been having trouble with nose bleeds recently and he notes that his doctor told him that it was most likely from his blood thinners. He reports that he is on Xarelto, Plavix, and Aspirin after his heart attack in August. After taking his Xarelto last night he states that his nose started bleeding and bled intermittently throughout the night before stopping just COLLETER. Positive blurry vision. Negative LOC, trauma, dizziness, lightheadedness, chest pain, and shortness of breath. Pt notes he has not taken his medication yet today. Source of History: patient Onset: last night Position: nose Quality: other (bleeding) Timing: intermittent Associated Symptoms: No LOC, No chest pain, No SOB Note: Positive blurry vision. Negative trauma, dizziness, lightheadedness. Review of Systems See HPI for pertinent positives and negatives. A total of ten systems were reviewed and were otherwise negative. Past Medical & Surgical Medical Problems: (1) BPH (benign prostatic hyperplasia) (2) CAD (coronary artery disease), [place] coronary artery (3) GERD (gastroesophageal reflux disease) (4) HTN (hypertension) (5) Hyperlipidemia (6) Seasonal allergies (7) STEMI (ST elevation myocardial infarction) (8) Tobacco abuse Surgical Problems: (1) H/O colonoscopy (2) H/O esophagogastroduodenoscopy (3) S/P angioplasty with stent Social History Problems: (1) Daily consumption of alcohol Family History Asthma SON Cancer Diabetes mellitus MOTHER Heart disease Hypertension Kidney disease Social History Smoking Status: Never Smoker Alcohol Use: occasionally Drug Use: none Marital Status: Housing Status: lives with family Occupation Status: employed Current/Historical Medications Scheduled Aspirin (Aspirin EC Low Dose), 81 MG PO QAM Clopidogrel Bisulfate (Clopidogrel), 75 MG PO QAM Fexofenadine-Pseudoephedrine (Summer-D 24 Hour Allergy), 1 TAB PO DAILY Lisinopril (Lisinopril), 10 MG PO QD Metoprolol Succinate (Metoprolol Succinate ER), 25 MG PO QAM Pantoprazole (Pantoprazole Sodium), 40 MG PO DAILY Rivaroxaban (Xarelto), 20 MG PO QDD Allergies Coded Allergies: No Known Allergies (Unverified , 09/13/16) Physical Exam Vital Signs Date Time Temp Pulse Resp B/P (MAP) Pulse Ox O2 Delivery O2 Flow Rate FiO2 12/24/16 12:34 20 126/78 97 12/24/16 11:19 51 12/24/16 11:03 54 20 144/83 12/24/16 10:35 52 16 160/87 98 12/24/16 10:20 36.4 54 18 186/96 99 Room Air Physical Exam GENERAL: Awake, alert, well-appearing, NAD HENT: Mucosal bleeding in the right naris, medial mucosal bleeding on the left. No septal hematoma. EYES: Normal conjunctiva. Sclera non-icteric. NECK: Supple. No nuchal rigidity. FROM. RESPIRATORY: CTAB, no rhonchi, wheezing, crackles CARDIAC: RRR, no MRG ABDOMEN: Soft, NTND, BS+ MSK: No chest wall TTP, no LE edema NEURO: GCS 15, CN 2-12 intact, moves all 4s on command SKIN: No rash or jaundice noted. Medical Decision & Procedures Laboratory Results 12/24/16 10:34 Red Blood Count 4.95, Mean Corpuscular Volume 95.2, Mean Corpuscular Hemoglobin 32.3, Mean Corpuscular Hemoglobin Concent 34.0, Mean Platelet Volume 10.2, Neutrophils (%) (Auto) 49.2, Lymphocytes (%) (Auto) 34.5, Monocytes (%) (Auto) 10.1, Eosinophils (%) (Auto) 4.3, Basophils (%) (Auto) 1.3, Neutrophils # (Auto ) 2.29, Lymphocytes # (Auto) 1.61, Monocytes # (Auto) 0.47, Eosinophils # (Auto ) 0.20, Basophils # (Auto) 0.06 12/24/16 10:34 Test 12/24/16 10:34 White Blood Count 4.66 K/uL (4.8-10.8) Red Blood Count 4.95 M/uL (4.7-6.1) Hemoglobin 16.0 g/dL (14.0-18.0) Hematocrit 47.1 % (42-52) Mean Corpuscular Volume 95.2 fL (80-100) Mean Corpuscular Hemoglobin 32.3 pg (25-34) Mean Corpuscular Hemoglobin Concent 34.0 g/dl (32-36) Platelet Count 247 K/uL (130-400) Mean Platelet Volume 10.2 fL (7.4-10.4) Neutrophils (%) (Auto) 49.2 % Lymphocytes (%) (Auto) 34.5 % Monocytes (%) (Auto) 10.1 % Eosinophils (%) (Auto) 4.3 % Basophils (%) (Auto) 1.3 % Neutrophils # (Auto) 2.29 K/uL (1.4-6.5) Lymphocytes # (Auto) 1.61 K/uL (1.2-3.4) Monocytes # (Auto) 0.47 K/uL (0.11-0.59) Eosinophils # (Auto) 0.20 K/uL (0-0.5) Basophils # (Auto) 0.06 K/uL (0-0.2) RDW Standard Deviation 44.3 fL (36.4-46.3) RDW Coefficient of Variation 12.8 % (11.5-14.5) Immature Granulocyte % (Auto) 0.6 % Immature Granulocyte # (Auto) 0.03 K/uL (0.00-0.02) Prothrombin Time 11.9 SECONDS (9.0-12.0) Prothromb Time International Ratio 1.1 (0.9-1.1) Activated Partial Thromboplast Time 34.4 SECONDS (21.0-31.0) Partial Thromboplastin Ratio 1.3 Anion Gap 6.0 mmol/L (3-11) Est Creatinine Clear Calc Drug Dose 85.5 ml/min Estimated GFR () 91.8 Estimated GFR (Non- 79.2 BUN/Creatinine Ratio 11.6 (10-20) Calcium Level 9.2 mg/dl (8.5-10.1) Laboratory results reviewed by me Medications Administered Medications (Trade) Dose Ordered Sig/Leia Route Start Time Stop Time Status Last Admin Dose Admin Oxymetazoline HCl (Afrin 0.05% Nasal [place]) 1 sprays NOW ONCE NA 12/24/16 11:00 12/24/16 11:01 DC 12/24/16 11:12 1 SPRAYS Lisinopril (Zestril Tab) 10 mg ONE STAT PO 12/24/16 10:52 12/24/16 10:55 DC 12/24/16 11:11 10 MG ED Course 1028: The patient was evaluated in room A3. A complete history and physical exam was performed. 1132: I discussed the patients case with Dr. Coyne of cardiology. He suggests the patient stop the Aspirin and continue taking Xarelto and Plavix. He will follow up with him. 1202: I updated the patient. 1205: I reevaluated the patient. Discussed results and discharge instructions: He verbalized understanding and agreement. The patient is ready for discharge. Medical Decision The patient is a 66 year old male with a past medical history of CAD status post AVNI to LAD in August of 2016, and hyperlipidemia who presents to the ED with a cc of intermittent nose bleeding beginning last night. Differential diagnosis includes platelet dysfunction, coagulopathy, thrombocytopenia, anemia, hypertensive urgency, medication side effect. Patient was seen and evaluated at the bedside. Patient did have mild anterior mucosal nasal bleeding without septal hematoma. Patient was on Xarelto, aspirin , and Plavix. Patient's blood work was fairly unremarkable patient's coags were not elevated. Patient had normal platelet count and normal hemoglobin. Patient had Afrin as well as a compression place to the nose. Patient's compression was removed. Patient had no further bleeding. Patient was given strict follow-up construct, TURP cautions. I spoke with the patient's primary cardiology group who agreed that the patient could stop taking the aspirin but continue the Xarelto and Plavix. Patient was told of the same and was told to return if he has recurrent bleeding not amenable to at-home treatment or if he becomes very lightheaded has prolonged bleeding or he has a syncopal episode he should return to the emergency department. Patient has follow-up with cardiology on . Patient was safely discharged home. Medication Reconcilliation Current Medication List: was personally reviewed by me Blood Pressure Screening Patient's blood pressure: Elevated blood pressure Blood pressure disposition: Referred to PCP Consults Time Called: 1128 Consulting Physician: Dr. Coyne - Cardiology Returned Call: [phone] I discussed the patients case with Dr. Coyne of cardiology. He suggests the patient stop the Aspirin and continue taking Xarelto and Plavix. He will follow up with him. Impression Primary Impression: Acute anterior epistaxis Scribe Attestation The scribe's documentation has been prepared under my direction and personally reviewed by me in its entirety. I confirm that the note above accurately reflects all work, treatment, procedures, and medical decision making performed by me. Departure Information Dispostion Home / Self-Care Referrals Eric Olivo D.O. (PCP) Saul Lafleur M.D. Forms HOME CARE DOCUMENTATION FORM, IMPORTANT VISIT INFORMATION, WORK / SCHOOL INSTRUCTIONS Patient Instructions ED Noseisaked, My [facility], Nosebleeds - [facility] Additional Instructions Please return to the emergency department if you have worsening or recurrent symptoms not amenable to at-home treatment. Please call for a follow-up appointment with her primary care physician. Please take your medications as prescribed. If you have other concerns and/or complaints please feel free to also call your primary care physician's office or return the ED for further evaluation, management, and treatment. As we discussed today please stop taking the aspirin but continue the Plavix and the relative. Please also take your pulse for you take your beta joann which is called metoprolol and record this and ordered to discuss further with your chisel worker for rate control and blood pressure control. Please return if you have any worsening symptoms or persistent bleeding. Please use the Afrin as discussed as well as the nasal clamp.
[2016-12-24] MEDS ORDERED: METOPROLOL SUCC 25MG EXT REL TAB PO STA (10:52)
[2016-12-24] MEDS ORDERED: LISINOPRIL 10 MG TAB PO STA (10:52)
[2016-12-24] MEDS ORDERED: OXYMETAZOLINE HCL 0.05% NA SPR 15 ML BTL ONE (11:00)
[2016-12-24 11:19] VITALS: PULSE 51
[2016-12-24 11:19] LABS: BASO % 1.3 %; BASO ABS # 0.06 K/uL (0-0.2); COMPLETE YES; EOS % 4.3 %; HEMATOCRIT 47.1 % (42-52); IG% 0.6 %; LYMPH % 34.5 %; LYMPH ABS # 1.61 K/uL (1.2-3.4); MEAN CELL VOLUME 95.2 fL (80-100); MEAN CORPUSCULAR HEMOGLOBIN 32.3 pg (25-34); MEAN PLATELET VOLUME 10.2 fL (7.4-10.4); MONO % 10.1 %; NEUT % 49.2 %; PLATELET COUNT 247 K/uL (130-400); RED BLOOD COUNT 4.95 M/uL (4.7-6.1); WHITE BLOOD COUNT 4.66 K/uL (4.8-10.8)
[2016-12-24 11:28] LABS: INR 1.1 (0.9-1.1); PARTIAL THROMBOPLASTIN RATIO 1.3; PROTHROMBIN TIME (PATIENT) 11.9 SECONDS (9.0-12.0)
[2016-12-24 11:41] LABS: BUN/CREATININE RATIO 11.6 (10-20); CALCIUM 9.2 mg/dl (8.5-10.1); POTASSIUM 4.4 mmol/L (3.5-5.1)
[2016-12-24 12:34] VITALS: BP 126/78; O2SAT 97
== END 2016-12-24 12:33 | disposition home or self-care (01) ==
LOC: C.EDB 10:19 → C.EDA 12:33
DX: R04.0 Epistaxis (principal); I25.10 Atherosclerotic heart disease of native coronary artery without angina pectoris; Z95.5 Presence of coronary angioplasty implant and graft; Z79.01 Long term (current) use of anticoagulants; Z79.82 Long term (current) use of aspirin; N40.0 Benign prostatic hyperplasia without lower urinary tract symptoms; K21.9 Gastro-esophageal reflux disease without esophagitis; I10 Essential (primary) hypertension; E78.5 Hyperlipidemia, unspecified; I25.2 Old myocardial infarction; Z82.5 Family history of asthma and other chronic lower respiratory diseases; Z80.9 Family history of malignant neoplasm, unspecified; Z83.3 Family history of diabetes mellitus; Z82.49 Family history of ischemic heart disease and other diseases of the circulatory system; Z84.1 Family history of disorders of kidney and ureter; Z79.899 Other long term (current) drug therapy

== ENCOUNTER 2017-02-11 21:43 | Emergency (ER) | payer BC ==
[~2017-02-11] VITALS: Ht 177.8 cm; Wt 92.8 kg
[~2017-02-11 21:43] MED LIST changes: -LPT40 PO
[2017-02-11 21:46] VITALS: TEMP 36.6; Ht 177.8 cm; Wt 92.8 kg
[2017-02-11 22:17] LABS: BASO % 0.6 %; BASO ABS # 0.04 K/uL (0-0.2); COMPLETE YES; EOS % 2.7 %; HEMATOCRIT 44.1 % (42-52); LYMPH ABS # 2.71 K/uL (1.2-3.4); MEAN CELL VOLUME 93.6 fL (80-100); MEAN CORPUSCULAR HEMOGLOBIN 32.1 pg (25-34); MEAN CORPUSCULAR HGB CONC 34.2 g/dl (32-36); MEAN PLATELET VOLUME 9.9 fL (7.4-10.4); MONO % 11.6 %; NEUT % 41.1 %; PLATELET COUNT 286 K/uL (130-400); RED BLOOD COUNT 4.71 M/uL (4.7-6.1)
[2017-02-11 22:24] LABS: PARTIAL THROMBOPLASTIN RATIO 1.2; PROTHROMBIN TIME (PATIENT) 11.1 SECONDS (9.0-12.0)
--- NOTE | 2017-02-11 22:32 | DIAGNOSTIC IMAGING REPORT ---
CHEST ONE VIEW PORTABLE CLINICAL HISTORY: Fever, sepsis, chest pain COMPARISON STUDY: 09/13/2016 FINDINGS: The cardiac and mediastinal contours are normal. There is no evidence of focal pulmonary consolidation. There is no evidence of failure. No pleural effusions are visualized.[ IMPRESSION: No active disease in the chest. Electronically signed by: Itz Boles M.D. 02/11/2017 10:31 PM Dictated Date/Time: 02/11/2017 10:31 PM
[2017-02-11 22:36] LABS: ALT/SGPT 24 U/L (12-78); BLOOD UREA NITROGEN 8 mg/dl (7-18); BUN/CREATININE RATIO 8.1 (10-20); CALCIUM 8.9 mg/dl (8.5-10.1); CARBON DIOXIDE 27 mmol/L (21-32); CHLORIDE 100 mmol/L (98-107); CREATININE 1.03 mg/dl (0.60-1.40); GLUCOSE 85 mg/dl (70-99); POTASSIUM 3.6 mmol/L (3.5-5.1); SODIUM 136 mmol/L (136-145)
[2017-02-11 22:41] LABS: ALKALINE PHOSPHATASE 64 U/L (45-117); AST/SGOT 20 U/L (15-37); CKMB/CK RATIO 3.2 (0-3.0)
--- NOTE | 2017-02-11 23:58 | EMERGENCY ROOM VISIT NOTE ---
History Report prepared by Henrik: Bonnie Cottrell Under the Supervision of: Dr. Slim Blackwell D.O. First contact with patient: 22:07 Chief Complaint: CHEST PAIN Stated Complaint: CHEST PAIN, LEFT WRIST PAIN- CARDIAC HX History of Present Illness The patient is a 66 year old male who presents to the Emergency Room with complaints of intermittent chest pain that started earlier today. The patient rates his pain a 3/10 in severity. The patient reports that he had a heart attack in August and finished cardiac rehab 3 days ago. He notes that he was on a couple of different medications that seemed to be "messing up his chest muscles and right arm". His doctor took away the medications. The patient states that he feels like his chest muscle is "strained". He notes when he is sitting up, it feels like something is pushing on his ribs. The patient reports that when he had his previous [place], he experienced wrist pain. He notes that he felt wrist pain today which led him to come to the ED. The patient states that he feels a "tingle" between his knee and foot. He reports that he did a lot of walking yesterday and he may have over worked himself. Source of History: patient Onset: earlier today Position: chest Symptom Intensity: 3/10 Quality: other ("feels like a muscle strain") Timing: intermittent Note: Additional symptoms: wrist pain, right arm pain. Review of Systems See HPI for pertinent positives & negatives. A total of 10 systems reviewed and were otherwise negative. Past Medical & Surgical Medical Problems: (1) BPH (benign prostatic hyperplasia) (2) CAD (coronary artery disease), [place] coronary artery (3) GERD (gastroesophageal reflux disease) (4) HTN (hypertension) (5) Hyperlipidemia (6) Seasonal allergies (7) STEMI (ST elevation myocardial infarction) (8) Tobacco abuse Surgical Problems: (1) H/O colonoscopy (2) H/O esophagogastroduodenoscopy (3) S/P angioplasty with stent Social History Problems: (1) Daily consumption of alcohol Family History Asthma SON Cancer Diabetes mellitus MOTHER Heart disease Hypertension Kidney disease Social History Smoking Status: Never Smoker Alcohol Use: occasionally Drug Use: none Marital Status: Housing Status: lives with family Occupation Status: employed Current/Historical Medications Scheduled Aspirin (Aspirin EC Low Dose), 81 MG PO QAM Clopidogrel Bisulfate (Clopidogrel), 75 MG PO QAM Fexofenadine-Pseudoephedrine (Summer-D 24 Hour Allergy), 1 TAB PO DAILY Lisinopril (Lisinopril), 10 MG PO QD Metoprolol Succinate (Metoprolol Succinate ER), 25 MG PO QAM Pantoprazole (Pantoprazole Sodium), 40 MG PO DAILY Allergies Coded Allergies: No Known Allergies (Unverified , 02/11/17) Physical Exam Vital Signs Date Time Temp Pulse Resp B/P (MAP) Pulse Ox O2 Delivery O2 Flow Rate FiO2 02/11/17 22:40 48 18 170/79 99 Room Air 02/11/17 21:55 99 Room Air 02/11/17 21:54 55 02/11/17 21:46 36.6 50 18 174/75 99 Room Air Physical Exam CONSTITUTIONAL/VITAL SIGNS: Reviewed / noted above. GENERAL: Non-toxic in appearance. INTEGUMENTARY: Warm, dry, and [place]. HEAD: Normocephalic. EYES: without scleral icterus or trauma. ENT/OROPHARYNX: clear and moist. LYMPHADENOPATHY/NECK: Is supple without lymphadenopathy or meningismus. RESPIRATORY: Lungs clear and equal. CARDIOVASCULAR: Regular rate and rhythm. GI/ABDOMEN: Soft and nontender. No organomegaly or pulsatile mass. No rebound or guarding. Normal bowel sounds. EXTREMITIES: Warm and well perfused. BACK: No CVA tenderness. NEUROLOGICAL: Intact without focal deficits. PSYCHIATRIC: normal affect. MUSCULOSKELETAL: Normally developed with good muscle tone. Medical Decision & Procedures ER Provider Diagnostic Interpretation: Radiology results as stated below per my review and radiologist interpretation: CHEST ONE VIEW PORTABLE CLINICAL HISTORY: Fever, sepsis, chest pain COMPARISON STUDY: 09/13/2016 FINDINGS: The cardiac and mediastinal contours are normal. There is no evidence of focal pulmonary consolidation. There is no evidence of failure. No pleural effusions are visualized.[ IMPRESSION: No active disease in the chest. Electronically signed by: Itz Boles M.D. 02/11/2017 10:31 PM Dictated Date/Time: 02/11/2017 10:31 PM Laboratory Results 02/11/17 22:00 Red Blood Count 4.71, Mean Corpuscular Volume 93.6, Mean Corpuscular Hemoglobin 32.1, Mean Corpuscular Hemoglobin Concent 34.2, Mean Platelet Volume 9.9, Neutrophils (%) (Auto) 41.1, Lymphocytes (%) (Auto) 43.0, Monocytes (%) (Auto) 11.6, Eosinophils (%) (Auto) 2.7, Basophils (%) (Auto) 0.6, Neutrophils # (Auto ) 2.59, Lymphocytes # (Auto) 2.71, Monocytes # (Auto) 0.73, Eosinophils # (Auto ) 0.17, Basophils # (Auto) 0.04 02/11/17 22:00 Test 02/11/17 22:00 White Blood Count 6.30 K/uL (4.8-10.8) Red Blood Count 4.71 M/uL (4.7-6.1) Hemoglobin 15.1 g/dL (14.0-18.0) Hematocrit 44.1 % (42-52) Mean Corpuscular Volume 93.6 fL (80-100) Mean Corpuscular Hemoglobin 32.1 pg (25-34) Mean Corpuscular Hemoglobin Concent 34.2 g/dl (32-36) Platelet Count 286 K/uL (130-400) Mean Platelet Volume 9.9 fL (7.4-10.4) Neutrophils (%) (Auto) 41.1 % Lymphocytes (%) (Auto) 43.0 % Monocytes (%) (Auto) 11.6 % Eosinophils (%) (Auto) 2.7 % Basophils (%) (Auto) 0.6 % Neutrophils # (Auto) 2.59 K/uL (1.4-6.5) Lymphocytes # (Auto) 2.71 K/uL (1.2-3.4) Monocytes # (Auto) 0.73 K/uL (0.11-0.59) Eosinophils # (Auto) 0.17 K/uL (0-0.5) Basophils # (Auto) 0.04 K/uL (0-0.2) RDW Standard Deviation 43.6 fL (36.4-46.3) RDW Coefficient of Variation 12.6 % (11.5-14.5) Immature Granulocyte % (Auto) 1.0 % Immature Granulocyte # (Auto) 0.06 K/uL (0.00-0.02) Prothrombin Time 11.1 SECONDS (9.0-12.0) Prothromb Time International Ratio 1.0 (0.9-1.1) Activated Partial Thromboplast Time 30.4 SECONDS (21.0-31.0) Partial Thromboplastin Ratio 1.2 Anion Gap 9.0 mmol/L (3-11) Est Creatinine Clear Calc Drug Dose 82.9 ml/min Estimated GFR () 88.6 Estimated GFR (Non- 76.4 BUN/Creatinine Ratio 8.1 (10-20) Calcium Level 8.9 mg/dl (8.5-10.1) Total Bilirubin 0.5 mg/dl (0.2-1) Direct Bilirubin 0.1 mg/dl (0-0.2) Aspartate Amino Transf (AST/SGOT) 20 U/L (15-37) Alanine Aminotransferase (ALT/SGPT) 24 U/L (12-78) Alkaline Phosphatase 64 U/L (45-117) Total Creatine Kinase 264 U/L (39-308) Creatine Kinase MB 8.4 ng/ml (0.5-3.6) Creatine Kinase MB Ratio 3.2 (0-3.0) Troponin I < 0.015 ng/ml (0-0.045) Total Protein 7.1 gm/dl (6.4-8.2) Albumin 3.6 gm/dl (3.4-5.0) Lipase 127 U/L (73-393) Laboratory results as stated above per my review. ECG Indication: chest pain Rate (beats per minute): 48 Rhythm: sinus bradycardia Findings: no acute ischemic change, no ectopy ED Course 220: Previous medical records were reviewed. The patient was evaluated in room C3. A complete history and physical examination was performed. 0010: On reevaluation, the patient is doing well. I discussed the results and findings with the patient. He verbalized agreement of the treatment plan. He will be discharged home. Medical Decision the differential was considered includes acute myocardial infarction, acute coronary syndrome, myocarditis, pericarditis, pericardial effusions /tamponade, esophageal perforation, thoracic aortic dissection, pulmonary embolism, pneumonia, pneumothorax, pancreatitis, shingles, acute cholecystitis, perforated abdominal viscus. This is a 66-year-old male who presents to the ED with a chief complaint of chest discomfort. The patient reports that he had an [place] in August. The patient states that he has been working out 3 times per week and yesterday did exception of activity with yard work as well as walking 6 miles yesterday to and from the football game. He states that he has had some upper abdominal discomfort for several weeks that was felt to be related to anti-lipid medications that he was taking. The patient states that he just wanted to make sure that he was not having a heart issue with regards to his symptoms. He has had the discomfort all day today off and on. His physical exam was normal. His 12-lead EKG shows a sinus bradycardia at a rate of 48 without acute injury or ectopy. CBC is normal, complete metabolic panel was unremarkable, troponin was negative and lipase was negative. The patient was told the results of the tests. He is felt to be stable for discharge and outpatient follow-up. Medication Reconcilliation Current Medication List: was personally reviewed by me Blood Pressure Screening Patient's blood pressure: Elevated blood pressure Blood pressure disposition: Referred to PCP Impression Primary Impression: Chest wall pain Scribe Attestation The scribe's documentation has been prepared under my direction and personally reviewed by me in its entirety. I confirm that the note above accurately reflects all work, treatment, procedures, and medical decision making performed by me. Departure Information Dispostion Home / Self-Care Referrals Eric Olivo D.O. (PCP) Patient Instructions My [facility] Additional Instructions Follow-up with your doctor for further care and evaluation in 1-2 days. Return to the emergency department for worsening or new symptoms or any concerns. You have been examined and treated today on an emergency basis only. This is not a substitute for, or an effort to provide, complete comprehensive medical care. It is impossible to recognize and treat all injuries or illnesses in a single emergency department visit. It is therefore important that you follow up closely with your doctor. Call as soon as possible for an appointment.
[2017-02-12 00:30] VITALS: BP 165/83; PULSE 54; O2SAT 97
== END 2017-02-12 00:37 | disposition home or self-care (01) ==
LOC: C.EDB 21:45 → C.EDC 02-12 00:37
DX: R07.9 Chest pain, unspecified (principal); R50.9 Fever, unspecified; M25.532 Pain in left wrist; I25.10 Atherosclerotic heart disease of native coronary artery without angina pectoris; Z95.5 Presence of coronary angioplasty implant and graft; Z79.01 Long term (current) use of anticoagulants; Z79.82 Long term (current) use of aspirin; K21.9 Gastro-esophageal reflux disease without esophagitis; I10 Essential (primary) hypertension; I25.2 Old myocardial infarction; Z82.49 Family history of ischemic heart disease and other diseases of the circulatory system; Z79.899 Other long term (current) drug therapy

== ENCOUNTER → 2017-03-23 | Outpatient (CLI) | payer BC ==
[~2017-03-23] MED LIST changes: -XRL20 PO
[2017-03-23 14:05] LABS: CHOLESTEROL 175 mg/dl (0-200); CHOLESTEROL/HDL RATIO 3.8; HDL CHOLESTEROL 46 mg/dl; TRIGLYCERIDES 136 mg/dl (0-150); VERY LOW DENSITY LIPOPROT CALC 27 mg/dl
== END | disposition home or self-care (01) ==
LOC: C.LABBC 11:23
PROVIDERS: ATTEND Internal Medicine Cardiovascular Disease
DX: E78.5 Hyperlipidemia, unspecified (principal)

== ENCOUNTER 2017-08-05 18:40 | Observation (INO) | payer BC ==
[~2017-08-05] VITALS: Ht 177.8 cm; Wt 88.6 kg
[~2017-08-05 18:40] MED LIST changes: -ASPEC81 PO; +ASPI-320 PO
[2017-08-05] MEDS ORDERED: ASPIRIN 324 MG CHEW PO STA (19:01)
[2017-08-05] MEDS ORDERED: METO25TA3 PO (19:15)
[2017-08-05] MEDS ORDERED: LISI-461 PO (19:15)
[2017-08-05] MEDS ORDERED: CLOP1TAB15 PO (19:15)
[2017-08-05] MEDS ORDERED: ASPI81TA28 PO (19:15)
[2017-08-05] MEDS ORDERED: NITROGLYCERIN 0.4 MG SL PER TAB CHARGE SL PRN ×2 (19:15→21:30)
[2017-08-05] MEDS ORDERED: PANT40TA PO (19:15)
[2017-08-05] MEDS ORDERED: OMEG10002 PO (19:15)
[2017-08-05 19:37] LABS: BASO % 0.6 %; BASO ABS # 0.03 K/uL (0-0.2); EOS % 5.7 %; EOS ABS # 0.29 K/uL (0-0.5); HEMATOCRIT 45.6 % (42-52); HEMOGLOBIN 15.4 g/dL (14.0-18.0); IG# 0.02 K/uL (0.00-0.02); LYMPH % 46.2 %; LYMPH ABS # 2.37 K/uL (1.2-3.4); MEAN CORPUSCULAR HEMOGLOBIN 31.8 pg (25-34); MEAN CORPUSCULAR HGB CONC 33.8 g/dl (32-36); MONO % 10.3 %; MONO ABS # 0.53 K/uL (0.11-0.59); NEUT % 36.8 %; NEUT ABS # 1.89 K/uL (1.4-6.5); PLATELET COUNT 226 K/uL (130-400); RED CELL DISTRIBUTION WIDTH CV 12.7 % (11.5-14.5); RED CELL DISTRIBUTION WIDTH SD 43.7 fL (36.4-46.3); WHITE BLOOD COUNT 5.13 K/uL (4.8-10.8)
--- NOTE | 2017-08-05 19:46 | DIAGNOSTIC IMAGING REPORT ---
CHEST ONE VIEW PORTABLE CLINICAL HISTORY: 66 years-old Male presenting with Chest Pain. TECHNIQUE: Portable upright AP view of the chest was obtained. COMPARISON: 02/11/2017. FINDINGS: Cardiac silhouette top normal in size. No focal opacity. No large effusion or pneumothorax. Osseous structures normal. Upper abdomen normal. IMPRESSION: 1. No acute cardiopulmonary disease. Electronically signed by: Augusto Morrow M.D. 08/05/2017 7:45 PM Dictated Date/Time: 08/05/2017 7:44 PM
[2017-08-05 19:53] LABS: BLOOD UREA NITROGEN 10 mg/dl (7-18); CALCIUM 8.6 mg/dl (8.5-10.1); CARBON DIOXIDE 30 mmol/L (21-32); CREATININE 1.06 mg/dl (0.60-1.40); GLUCOSE 93 mg/dl (70-99); POTASSIUM 3.6 mmol/L (3.5-5.1); SODIUM 137 mmol/L (136-145)
[2017-08-05 19:58] LABS: CKMB 7.2 ng/ml (0.5-3.6)
--- NOTE | 2017-08-05 20:47 | History and Physical ---
History & Physical Date & Time of Service: Aug 05, 2017 at 20:47 Chief Complaint: Pain In L Wrist And Lower L Leg Primary Care Physician: Eric Olivo D.O. History of Present Illness Source: patient Patient is a 66-year-old male with past medical history of CAD s/p AVNI to LAD, apical thrombus, former tobacco use, hyperlipidemia, GERD, statin induced rhabdomyolysis, allergic rhinitis and other problems presents with history of left wrist and left leg numbness/heaviness and tingling started today. He states "It feels funny" and had similar symptoms when he had [place] last year. He reports having indigestion after he ate some vegetables and was burping a lot today. He is concerned that he might have another [place] and so presented to ED for further evaluation. Denies any history of chest pain, SOB, palpitations, orthopnea, PND, dizziness, pedal edema, diaphoresis, cough, fever, chills, fall , trauma, LOC, headache, weakness, blurry/double vision, slurred speech, facial deformity, nausea, vomiting, abdominal pain, diarrhea, dysuria, recent travel, sick contact, recent change in medications. Patient exercises 3 times a week and denies any dyspnea on exertion or chest pain. Patient received 4 baby aspirins in ED and shows no change of his symptoms. Past Medical/Surgical History Medical Problems: (1) Acute anterior epistaxis (2) BPH (benign prostatic hyperplasia) (3) CAD (coronary artery disease), [place] coronary artery (4) Chest wall pain (5) GERD (gastroesophageal reflux disease) (6) HTN (hypertension) (7) Hyperlipidemia (8) Left arm numbness (9) Left sided numbness (10) Orbital cellulitis (11) Seasonal allergies (12) Sinusitis (13) STEMI (ST elevation myocardial infarction) (14) STEMI (ST elevation myocardial infarction) (15) Tobacco abuse Surgical Problems: (1) H/O colonoscopy (2) H/O esophagogastroduodenoscopy (3) S/P angioplasty with stent Family History Asthma SON Cancer Diabetes mellitus MOTHER Heart disease Hypertension Kidney disease Social History Smoking Status: Former Smoker Alcohol Use: socially Drug Use: none Marital Status: Occupational Status: employed Immunizations History of Influenza Vaccine: Yes Influenza Vaccine Date: Mar 07, 2014 Allergies Coded Allergies: No Known Allergies (Unverified , 08/05/17) Home Medications Scheduled Aspirin (Aspirin Ec), 81 MG PO QAM Clopidogrel (Plavix), 75 MG PO QAM Fexofenadine-Pseudoephedrine (Summer-D 24 Hour Allergy), 1 TAB PO DAILY Lisinopril (Lisinopril), 10 MG PO QAM Metoprolol Succ (Toprol Xl) (Toprol-Xl), 25 MG PO QAM [place]-3 Fatty Acids (Fish Oil), 1,000 MG PO QAM Pantoprazole (Protonix), 40 MG PO QAM Review of Systems See HPI for pertinent positives & negatives. A total of 10 systems reviewed and were otherwise negative. Physical Exam Vital Signs Date Time Temp Pulse Resp B/P (MAP) Pulse Ox O2 Delivery O2 Flow Rate FiO2 08/05/17 20:10 46 18 08/05/17 19:40 51 19 08/05/17 19:12 52 08/05/17 19:10 49 20 08/05/17 18:43 36.6 51 20 133/78 99 Room Air General Appearance: WD/WN, no apparent distress Head: normocephalic, atraumatic Eyes: normal inspection, PERRL, EOMI ENT: normal ENT inspection, hearing grossly normal Neck: supple, trachea midline Respiratory/Chest: chest non-tender, lungs clear, normal breath sounds, no respiratory distress, no accessory muscle use Cardiovascular: regular rate, rhythm, no edema, no murmur, + bradycardia Abdomen/GI: normal bowel sounds, non tender, soft Back: normal inspection Extremities/Musculoskelatal: normal inspection, no pedal edema Neurologic/Psych: 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 tested, no motor/sensory deficits, alert, normal mood/affect, oriented x 3 Skin: normal color, warm/dry Diagnostics Laboratory Results Results Past 24 Hours Test 08/05/17 19:16 Range/Units White Blood Count 5.13 4.8-10.8 K/uL Red Blood Count 4.85 4.7-6.1 M/uL Hemoglobin 15.4 14.0-18.0 g/dL Hematocrit 45.6 42-52 % Mean Corpuscular Volume 94.0 80-100 fL Mean Corpuscular Hemoglobin 31.8 25-34 pg Mean Corpuscular Hemoglobin Concent 33.8 32-36 g/dl Platelet Count 226 130-400 K/uL Mean Platelet Volume 10.0 7.4-10.4 fL Neutrophils (%) (Auto) 36.8 % Lymphocytes (%) (Auto) 46.2 % Monocytes (%) (Auto) 10.3 % Eosinophils (%) (Auto) 5.7 % Basophils (%) (Auto) 0.6 % Neutrophils # (Auto) 1.89 1.4-6.5 K/uL Lymphocytes # (Auto) 2.37 1.2-3.4 K/uL Monocytes # (Auto) 0.53 0.11-0.59 K/uL Eosinophils # (Auto) 0.29 0-0.5 K/uL Basophils # (Auto) 0.03 0-0.2 K/uL RDW Standard Deviation 43.7 36.4-46.3 fL RDW Coefficient of Variation 12.7 11.5-14.5 % Immature Granulocyte % (Auto) 0.4 % Immature Granulocyte # (Auto) 0.02 0.00-0.02 K/uL Sodium Level 137 136-145 mmol/L Potassium Level 3.6 3.5-5.1 mmol/L Chloride Level 104 98-107 mmol/L Carbon Dioxide Level 30 21-32 mmol/L Anion Gap 4.0 3-11 mmol/L Blood Urea Nitrogen 10 7-18 mg/dl Creatinine 1.06 0.60-1.40 mg/dl Est Creatinine Clear Calc Drug Dose 78.4 ml/min Estimated GFR () 85.5 Estimated GFR (Non- 73.8 BUN/Creatinine Ratio 9.3 10-20 Random Glucose 93 70-99 mg/dl Calcium Level 8.6 8.5-10.1 mg/dl Total Creatine Kinase 278 39-308 U/L Creatine Kinase MB 7.2 0.5-3.6 ng/ml Creatine Kinase MB Ratio 2.6 0-3.0 Troponin I < 0.015 0-0.045 ng/ml Diagnostic Radiology CXR: No acute cardiopulmonary disease. EKG EKG: Sinus bradycardia, No signs of ache ischemia Impression Assessment and Plan Left UE/Left Leg Heaviness/Numbness: R/O ACS Risk factors: H/O CAD, HLP, Former Tobacco use disorder, +family history Initial troponin:Negative EKG shows: No acute signs of ischemia CXR: Unremarkable Trend serial cardiac enzymes, repeat EKG, ECHO, fasting lipid panel in AM Continue Aspirin, Plavix, Metoprolol No Statins as patient had Statin Intolerance (Tried 3 types of statin in past) Oxygen PRN NPO after midnight for possible stress test in AM Cardiology consulted No focal deficits on exam, consider CT Head only if clinically indicated Sinus Bradycardia: Asymptomatic Will decrease metoprolol from 25 mg to 12.5 mg monitor CAD s/p AVNI to LAD Continue home medications H/O Apical thrombus: previously on Xarelto Hyperlipidemia: H/O statin Intolerance causes Rhabdo On fish oil at home GERD: continue PPI Chronic Allergic rhinitis: continue home meds DVT Px: SCDs Code Status: Full Code Resuscitation Status VTE Prophylaxis Will order VTE Prophylaxis: Yes
[2017-08-05] MEDS ORDERED: ACETAMINOPHEN 325 MG TAB PO PRN (21:30)
[2017-08-05] MEDS ORDERED: ONDANSETRON INJ 2 MG/ML 2 ML VIAL IV PRN (21:30)
[2017-08-05] MEDS ORDERED: IV FLUIDS COMPLETED PRN (21:45)
--- NOTE | 2017-08-05 21:47 | EMERGENCY ROOM VISIT NOTE ---
History Report prepared by Henrik: Soila Posada Under the Supervision of: Dr. Blanco Moulton D.O. First contact with patient: 18:51 Chief Complaint: NEURO SYMPTOMS Stated Complaint: PAIN IN L WRIST AND LOWER L LEG Nursing Triage Summary: pt states intermittent tingling in left arm, left wrist and lower left leg, pt states "feels like my arm is falling asleep." Pt hx cardiac cath/TN 08/2016, states similar symptoms worsening in intensity at that time. Pt denies chest pain, no SHOB, no diaphoresis noted. History of Present Illness The patient is a 66 year old male who presents to the Emergency Room with complaints of persistent left wrist and left leg tingling starting earlier today. The patient had an TN last year and had stent placement. He has been to cardiac rehab and exercises 3 times a week. He had pain in his left wrist and left leg with his previous TN. He also had nausea and vomiting with his previous TN, but no chest pain or SOB. His symptoms today feel similar to his previous TN, but less severe. He is having some indigestion. He is not having any chest pain with exertion. He notes his pain in his left arm and left leg is a dull ache. It feels cool. He feels exactly the same in nature as it did last time but with a much less intensity. He denies any chest pain, SOB, cough , rhinorrhea, nausea, vomiting, or diarrhea. He denies any other numbness or weakness. He denies any history of trouble with his aorta. Source of History: patient Onset: earlier today Position: wrist (left), leg (left) Quality: other (tingling) Timing: other (persistent) Associated Symptoms: No cough, No chest pain, No SOB, No nausea, No vomiting , No abdominal pain, No diarrhea Note: Pt reports indigestion. Review of Systems See HPI for pertinent positives & negatives. A total of 10 systems reviewed and were otherwise negative. Past Medical & Surgical Medical Problems: (1) BPH (benign prostatic hyperplasia) (2) CAD (coronary artery disease), [place] coronary artery (3) GERD (gastroesophageal reflux disease) (4) HTN (hypertension) (5) Hyperlipidemia (6) Orbital cellulitis (7) Seasonal allergies (8) Sinusitis (9) STEMI (ST elevation myocardial infarction) (10) Tobacco abuse Surgical Problems: (1) H/O colonoscopy (2) H/O esophagogastroduodenoscopy (3) S/P angioplasty with stent Social History Problems: (1) Daily consumption of alcohol Family History Asthma SON Cancer Diabetes mellitus MOTHER Heart disease Hypertension Kidney disease Social History Smoking Status: Former Smoker Alcohol Use: occasionally Drug Use: none Marital Status: Housing Status: lives with family Occupation Status: employed Current/Historical Medications Scheduled Aspirin (Aspirin Ec), 81 MG PO QAM Clopidogrel (Plavix), 75 MG PO QAM Fexofenadine-Pseudoephedrine (Summer-D 24 Hour Allergy), 1 TAB PO DAILY Lisinopril (Lisinopril), 10 MG PO QAM Metoprolol Succ (Toprol Xl) (Toprol-Xl), 25 MG PO QAM [place]-3 Fatty Acids (Fish Oil), 1,000 MG PO QAM Pantoprazole (Protonix), 40 MG PO QAM Allergies Coded Allergies: No Known Allergies (Unverified , 08/05/17) Physical Exam Vital Signs Date Time Temp Pulse Resp B/P (MAP) Pulse Ox O2 Delivery O2 Flow Rate FiO2 08/05/17 20:10 46 18 08/05/17 19:40 51 19 08/05/17 19:12 52 08/05/17 19:10 49 20 08/05/17 18:43 36.6 51 20 133/78 99 Room Air Physical Exam GENERAL: Sitting up in bed, alert, well appearing, well nourished, no distress, non-toxic EYE EXAM: normal conjunctiva. PERRL and EOM's grossly intact. OROPHARYNX: no exudate, no erythema, lips, buccal mucosa, and tongue normal and mucous membranes are moist NECK: supple, no nuchal rigidity, no adenopathy, non-tender LUNGS: Clear to auscultation. Normal chest wall mechanics HEART: no murmurs, S1 normal and S2 normal ABDOMEN: abdomen soft, non-tender, normo-active bowel sounds, no masses, no rebound or guarding. BACK: Back is symmetrical on inspection and there is no deformity, no midline tenderness, no CVA tenderness. SKIN: no rashes and no bruising UPPER EXTREMITIES: upper extremities are grossly normal. Radial pulse 2/4 on the left. LOWER EXTREMITIES: No pitting edema. DP and PT 2/4 on the left. Calves equal bilaterally. NEURO EXAM: Normal sensorium, cranial nerves II-XII grossly intact, normal speech, no gross weakness of arms, no gross weakness of legs. Medical Decision & Procedures ER Provider Diagnostic Interpretation: Radiology results as stated below per my review and the radiologist's interpretation: CHEST ONE VIEW PORTABLE CLINICAL HISTORY: 66 years-old Male presenting with Chest Pain. TECHNIQUE: Portable upright AP view of the chest was obtained. COMPARISON: 02/11/2017. FINDINGS: Cardiac silhouette top normal in size. No focal opacity. No large effusion or pneumothorax. Osseous structures normal. Upper abdomen normal. IMPRESSION: 1. No acute cardiopulmonary disease. Electronically signed by: Augusto Morrow M.D. 08/05/2017 7:45 PM Dictated Date/Time: 08/05/2017 7:44 PM Laboratory Results 08/05/17 19:16 Red Blood Count 4.85, Mean Corpuscular Volume 94.0, Mean Corpuscular Hemoglobin 31.8, Mean Corpuscular Hemoglobin Concent 33.8, Mean Platelet Volume 10.0, Neutrophils (%) (Auto) 36.8, Lymphocytes (%) (Auto) 46.2, Monocytes (%) (Auto) 10.3, Eosinophils (%) (Auto) 5.7, Basophils (%) (Auto) 0.6, Neutrophils # (Auto ) 1.89, Lymphocytes # (Auto) 2.37, Monocytes # (Auto) 0.53, Eosinophils # (Auto ) 0.29, Basophils # (Auto) 0.03 08/05/17 19:16 Test 08/05/17 19:16 White Blood Count 5.13 K/uL (4.8-10.8) Red Blood Count 4.85 M/uL (4.7-6.1) Hemoglobin 15.4 g/dL (14.0-18.0) Hematocrit 45.6 % (42-52) Mean Corpuscular Volume 94.0 fL (80-100) Mean Corpuscular Hemoglobin 31.8 pg (25-34) Mean Corpuscular Hemoglobin Concent 33.8 g/dl (32-36) Platelet Count 226 K/uL (130-400) Mean Platelet Volume 10.0 fL (7.4-10.4) Neutrophils (%) (Auto) 36.8 % Lymphocytes (%) (Auto) 46.2 % Monocytes (%) (Auto) 10.3 % Eosinophils (%) (Auto) 5.7 % Basophils (%) (Auto) 0.6 % Neutrophils # (Auto) 1.89 K/uL (1.4-6.5) Lymphocytes # (Auto) 2.37 K/uL (1.2-3.4) Monocytes # (Auto) 0.53 K/uL (0.11-0.59) Eosinophils # (Auto) 0.29 K/uL (0-0.5) Basophils # (Auto) 0.03 K/uL (0-0.2) RDW Standard Deviation 43.7 fL (36.4-46.3) RDW Coefficient of Variation 12.7 % (11.5-14.5) Immature Granulocyte % (Auto) 0.4 % Immature Granulocyte # (Auto) 0.02 K/uL (0.00-0.02) Anion Gap 4.0 mmol/L (3-11) Est Creatinine Clear Calc Drug Dose 78.4 ml/min Estimated GFR () 85.5 Estimated GFR (Non- 73.8 BUN/Creatinine Ratio 9.3 (10-20) Calcium Level 8.6 mg/dl (8.5-10.1) Total Creatine Kinase 278 U/L (39-308) Creatine Kinase MB 7.2 ng/ml (0.5-3.6) Creatine Kinase MB Ratio 2.6 (0-3.0) Troponin I < 0.015 ng/ml (0-0.045) Laboratory results per my review. Medications Administered Medications (Trade) Dose Ordered Sig/Leia Route Start Time Stop Time Status Last Admin Dose Admin Aspirin (Aspirin Chew) 324 mg NOW STAT PO 08/05/17 19:01 08/05/17 19:02 DC 08/05/17 19:09 324 MG ECG Per My Interpretation Indication: back/shoulder pain Rate (beats per minute): 47 Rhythm: sinus bradycardia Findings: Q waves (Septal), T-wave inversion (lead 3), left axis deviation Comparison ECG Date: 12-Feb-2017 Change: no significant change ED Course ED COURSE: Vital signs were reviewed and showed bradycardia. The patients medical record was reviewed The above diagnostic studies were performed and reviewed. ED treatments and interventions as stated above. 1852: The patient was evaluated in room B12B. A complete history and physical examination was performed. 1900: Aspirin 324 mg PO. 1914: Nitroglycerin 0.4 mg SL. 2035: Upon reevaluation, the patient is resting comfortably. I discussed my findings with the patient and he understands and agrees with the treatment plan. Based on the patients age, coexisting illnesses, exam and lab findings the decision to treat as an inpatient was made. The patient remained stable while under my care. The patient will be evaluated for further management. 2038: I reviewed the patient's case with Vini Mandel hospitalist. He will evaluate the patient for further management. Medical Decision Differential diagnoses includes but is not limited to acute coronary syndrome, myocardial infarction, pericarditis, pulmonary embolus, aortic dissection, pneumonia, pneumothorax, musculoskeletal, shingles, esophageal. Patient is a 66-year-old gentleman presents the ER with an extremely atypical history for ACS. He is complaining of left arm and leg pain. He notes this feels exactly like his previous TN but much less severe and without vomiting. He did admit to some mild indigestion earlier today. CBC and BMP were unremarkable. Troponin was negative. Patient is currently pain-free. He was given aspirin. Chest x-ray was unremarkable. He was updated at bedside. I did review his previous presentation for an TN and based on this discussed with the hospitalist for observation overnight. Medication Reconcilliation Current Medication List: was personally reviewed by me Blood Pressure Screening Patient's blood pressure: Normal blood pressure Blood pressure disposition: Did not require urgent referral Consults Time Called: 2034 Consulting Physician: Vini Mandel hospitalist Returned Call: 2038 I reviewed the patient's case with him. He will evaluate the patient for further management. Impression Primary Impression: Arm pain Additional Impression: Indigestion Scribe Attestation The scribe's documentation has been prepared under my direction and personally reviewed by me in its entirety. I confirm that the note above accurately reflects all work, treatment, procedures, and medical decision making performed by me. Departure Information Dispostion Being Evaluated By Hospitalist Referrals Eric Olivo D.O. (PCP) Patient Instructions My [facility] Problem Qualifiers Primary Impression: Arm pain Laterality: left Qualified Codes: M79.602 - Pain in left arm
[2017-08-05] MEDS ORDERED: NSS + 20MEQ KCL 1000ML 1,000 ML IV SCH (23:00)
[2017-08-05 23:30] VITALS: BP 172/75; PULSE 46; TEMP 36.6; O2SAT 99; Ht 177.8 cm; Wt 88.6 kg
[2017-08-06] VITALS (7 sets, daily range): BP systolic 96–157; BP diastolic 65–84; PULSE 43–81; TEMP 36.5–36.9; O2SAT 98–99
[2017-08-06 07:34] LABS: HEMATOCRIT 43.5 % (42-52); HEMOGLOBIN 14.8 g/dL (14.0-18.0); MEAN CELL VOLUME 93.8 fL (80-100); MEAN CORPUSCULAR HEMOGLOBIN 31.9 pg (25-34); MEAN PLATELET VOLUME 10.1 fL (7.4-10.4); PLATELET COUNT 220 K/uL (130-400); RED CELL DISTRIBUTION WIDTH CV 12.8 % (11.5-14.5); RED CELL DISTRIBUTION WIDTH SD 43.4 fL (36.4-46.3); WHITE BLOOD COUNT 4.31 K/uL (4.8-10.8)
[2017-08-06 08:03] LABS: BLOOD UREA NITROGEN 9 mg/dl (7-18); CREATININE 0.94 mg/dl (0.60-1.40); GLUCOSE 89 mg/dl (70-99)
[2017-08-06 08:04] LABS: CALCIUM 8.3 mg/dl (8.5-10.1); CARBON DIOXIDE 26 mmol/L (21-32); CHOLESTEROL 174 mg/dl (0-200); POTASSIUM 4.1 mmol/L (3.5-5.1); SODIUM 139 mmol/L (136-145)
[2017-08-06 08:08] LABS: LDL CHOLESTEROL CALCULATED 107 mg/dl
[2017-08-06] MEDS ORDERED: LISINOPRIL 10 MG TAB PO SCH (09:00)
[2017-08-06] MEDS ORDERED: CLOPIDOGREL BISULFATE 75 MG TAB PO SCH (09:00)
[2017-08-06] MEDS ORDERED: PANTOprazole SOD 40 MG TAB PO SCH (09:00)
[2017-08-06] MEDS ORDERED: ASPIRIN 81 MG ECTAB PO SCH (09:00)
[2017-08-06] MEDS ORDERED: METOPROLOL SUCC 25MG EXT REL TAB PO SCH (09:00)
--- NOTE | 2017-08-06 11:11 | ECHOCARDIOGRAM REPORT ---
*NOTICE TO RECEIVING REPUBLICAN AGENCY This information is strictly Confidential and protected under [place] law. [place] law prohibits you from making any further disclosure of this information unless further disclosure is expressly permitted by the written consent of the person to whom it pertains or is authorized by law. A general authorization for the release of medical or other information is not sufficient for this purpose. Hospital accepts no responsibility if the information is made available to any other person, INCLUDING THE PATIENT. Interpretation Summary * Name: LIANE BARRERA Study Date: 08/06/2017 09:53 AM BP: 156/75 mmHg * Patient Location: [id number]\S\2 HR: 42 * : 1950 (M/d/yyy) Gender: Male Height: 69 in * Age: 66 yrs Ethnicity: AA Weight: 200 lb * Ordering Physician: Marco Lemus * Referring Physician: Self, Referred * Performed By: Scarlet Peña RDCS * * Reason For Study: R/O ACS * BSA: 2.1 m2 * -- Conclusions -- * 1. Normal LV size. Mild concentric LVH. * 2. Normal LV systolic function. LVEF 55-60 %. Hypokinetic basal inferior wall. * 3. Normal RV size and function. * 4. No significant valvular pathology. * 5. Compared with prior study on 09/05/2016: LV function has improved. LAD distribution wall motion abnormalities resolved. Procedure Details * A complete two-dimensional transthoracic echocardiogram was performed (2D, M-mode, Doppler and color flow Doppler). Left Ventricle * The left ventricle is grossly normal size. * There is mild concentric left ventricular hypertrophy. * Ejection Fraction = 55-60%. * Hypokinetic basal inferior wall. Right Ventricle * The right ventricle is grossly normal size. * The right ventricular systolic function is normal as assessed by tricuspid annular plane systolic excursion (TAPSE) (normal >1.5 cm). Atria * Borderline left atrial enlargement. * Borderline right atrial enlargement. * Right atrium not well visualized. * No ASD detected; PFO is not assessed. Mitral Valve * The mitral valve is grossly normal. * There is no mitral valve stenosis. * There is trace mitral regurgitation. Tricuspid Valve * There is trace tricuspid regurgitation. Aortic Valve * The aortic valve opens well. * The aortic valve is trileaflet. * No hemodynamically significant valvular aortic stenosis. * There is no significant aortic regurgitation. Pulmonic Valve * The pulmonary valve is inadequately visualized, but the Doppler data is adequate for interpretation. * Pulmonic stenosis is absent. * Trace pulmonic valvular regurgitation. Great Vessels * The aortic root and proximal ascending aorta are normal sized. * Normal inferior vena cava size and collapsability with sniff indicates a normal right atrial pressure of 3 mmHg MMode 2D Measurements and Calculations IVSd 1.2 cm IVSs 2.0 cm LVIDd 4.6 cm LVIDs 3.1 cm LVPWd 1.4 cm LVPWs 1.8 cm IVS/LVPW 0.88 FS 31.7 % EDV(Teich) 95.0 ml ESV(Teich) 38.2 ml EF(Teich) 59.8 % EDV(cubed) 94.3 ml ESV(cubed) 30.0 ml EF(cubed) 68.2 % % IVS thick 60.8 % % LVPW thick 28.0 % LV mass(C)d 233.7 grams LV mass(C)dI 113.1 grams/m\S\2 LV mass(C)s 251.0 grams LV mass(C)sI 121.5 grams/m\S\2 SV(Teich) 56.8 ml SI(Teich) 27.5 ml/m\S\2 SV(cubed) 64.3 ml SI(cubed) 31.1 ml/m\S\2 Ao root diam 3.4 cm Ao root area 8.9 cm\S\2 LA dimension 3.4 cm LA/Ao 1.0 LVAd ap4 35.5 cm\S\2 LVLd ap4 9.3 cm EDV(MOD-sp4) 109.6 ml EDV(sp4-el) 115.0 ml LVAs ap4 21.3 cm\S\2 LVLs ap4 7.7 cm ESV(MOD-sp4) 49.6 ml ESV(sp4-el) 49.9 ml EF(MOD-sp4) 54.8 % EF(sp4-el) 56.6 % LVAd ap2 32.4 cm\S\2 LVLd ap2 9.2 cm EDV(MOD-sp2) 95.9 ml EDV(sp2-el) 97.1 ml LVAs ap2 20.0 cm\S\2 LVLs ap2 7.8 cm ESV(MOD-sp2) 46.1 ml ESV(sp2-el) 43.7 ml EF(MOD-sp2) 52.0 % EF(sp2-el) 55.0 % LVLd %diff -1.32 % EDV(MOD-bp) 103.4 ml LVLs %diff 0.61 % ESV(MOD-bp) 47.6 ml EF(MOD-bp) 54.0 % SV(MOD-sp4) 60.1 ml SI(MOD-sp4) 29.1 ml/m\S\2 SV(MOD-sp2) 49.9 ml SI(MOD-sp2) 24.1 ml/m\S\2 SV(MOD-bp) 55.8 ml SI(MOD-bp) 27.0 ml/m\S\2 SV(sp4-el) 65.1 ml SI(sp4-el) 31.5 ml/m\S\2 SV(sp2-el) 53.4 ml SI(sp2-el) 25.8 ml/m\S\2 Doppler Measurements and Calculations MV E max ramirez 59.3 cm/sec MV A max ramirez 47.2 cm/sec MV E/A 1.3 MV dec time 0.28 sec Ao V2 max 107.7 cm/sec Ao max PG 4.6 mmHg Ao max PG (full) 1.4 mmHg LV V1 max PG 3.2 mmHg LV V1 max 89.7 cm/sec
--- NOTE | 2017-08-06 12:35 | CARDIOLOGY CONSULTATION ---
DATE OF CONSULTATION: 08/06/2017 REQUESTING PHYSICIAN: Marco Lemus MD REASON FOR CONSULTATION: Atypical chest symptoms. HISTORY OF PRESENT ILLNESS: Mr. Wild is a very pleasant 66-year-old man well known to me with a history of coronary artery disease status post anterior STEMI in 08/2016, who was readmitted yesterday in the setting of left arm and left leg tingling and epigastric discomfort. Mr. Wild has done very well following his MT 11 months ago. He remains very active at baseline, exercising 3 times a week for more than an hour without limiting symptoms. Recently, he has had no changes in exercise tolerance and has had no new chest pain. The day of admission, patient noted that after he ate some uncooked vegetables, developed some mild indigestion of approximately half an hour later, with that had some tingling in his left arm and wrist as well as some tingling in his left leg. Of note, states that he occasionally gets similar left arm tingling when he lies on his arm and was not concerned initially about those symptoms. The new symptom, where he has the tingling in his leg, which he states was similar to the symptoms that he had initially at the time of his MT. As a result, presented to the ED there, was initially hypertensive to the 170s, bradycardic down to the 40s, but chest pain free. His troponins were negative x3 and an EKG showed sinus rhythm with no significant ST abnormalities. He has been monitored on telemetry overnight and has had sinus bradycardia down to the 40s, but no significant pauses or arrhythmias. This morning he is feeling well with some mild residual tingling in his left wrist. PAST MEDICAL HISTORY: 1. Coronary artery disease status post anterior STEMI on 09/05/2016, had a single drug-eluting stent placed to mid LAD 3.5 x 18 Resolute stent, at that time was also noted to have a proximally occluded RCA with [id number] collaterals and mild nonobstructive disease in the circumflex. Initial EF was 40%, but on subsequent echocardiogram in 11/2016, had preserved LV function with only basal mid inferior hypokinesis and basal septal hypokinesis. 2. GERD. 3. Allergic rhinitis. 4. History of orbital cellulitis. FAMILY HISTORY: No family history of premature coronary artery disease or sudden cardiac . 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 He is with 2 grown children. Previously, he smoked a pipe, denies any tobacco use, currently report occasional alcohol use. HOME MEDICATIONS: Include lisinopril 10, metoprolol succinate 25 mg daily, Protonix 40 mg daily, aspirin 81, and triamcinolone nasal spray. ALLERGIES: INTOLERANT TO STATINS WITH ELEVATED CK LEVELS WITH MULTIPLE PRIOR STENTS. REVIEW OF SYSTEMS: Ten point review of systems is complete and otherwise negative other than stated in HPI. PHYSICAL EXAMINATION: VITAL SIGNS: Temperature 36.5, pulse 43, blood pressure 156/75. He is satting 98% on room air. GENERAL: The patient appears comfortable in no acute distress. HEENT: Sclerae are anicteric. Oropharynx clear. Mucous members are moist. NECK: Supple with no lymphadenopathy. LUNGS: Clear to auscultation bilaterally. HEART: He is bradycardic but regular with no murmurs, rubs, or gallops. ABDOMEN: Soft, nontender, nondistended with positive bowel sounds. EXTREMITIES: Warm. He has intact distal pulses 2+ radial, 2+ DP and PT pulses bilaterally. SKIN: Shows no rashes or lesions. NEUROLOGIC: Grossly nonfocal with intact sensation to light touch on his left side and intact strength bilaterally. PSYCHIATRIC: He is alert, oriented, and appropriate. LABORATORY DATA: Sodium 139, potassium 4.1, BUN 9, creatinine of 0.9. CK of 158. Troponins have been negative x3. Total cholesterol today 174, triglycerides 143, HDL 38 and LDL of 107, hemoglobin of 14.8 and platelets of 220. Chest x-ray showed no acute cardiopulmonary process. EKG showed sinus rhythm at a ventricular rate of [address] abnormalities and sinus arrhythmia. IMPRESSION AND PLAN: 1. Atypical chest pain. 2. History of coronary artery disease, status post anterior myocardial infarction and drug-eluting stent placement in 08/2016. 3. 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 4. STATIN INTOLERANCE. 5. Gastrointestinal esophageal reflux disease. 6. Sinus bradycardia. Mr. Wild is here with atypical chest symptoms reminiscent of his prior MT, although with subtle differences. His initial cardiac workup has been unremarkable with no signs of active ischemia. With patient's known cardiac disease, I feel that further risk stratification is warranted and would plan to proceed with exercise nuclear SPECT. We will further evaluate for residual ischemia in his inferior distribution in the setting of known chronic total occlusion. Otherwise, the patient is on appropriate secondary prevention medications and will continue on dual antiplatelet therapy with aspirin and Plavix, continue current JUAN inhibitor. The patient has been largely asymptomatic with a sinus bradycardia, but I feel reasonable to do a trial of less Toprol-XL and we will reduce it to 12.5 daily. Otherwise, has been intolerant to multiple statins, reasonable to start on Zetia. Assuming exercise SPECT is unremarkable, the patient can be discharged home later today. He has scheduled followup with Dr. Lafleur in 1 week. Thank you for allowing us to participate in the care of this patient.
[2017-08-06] MEDS ORDERED: REGADENOSON 0.4 MG/5 ML SYR ONE (13:50)
[2017-08-06] MEDS ORDERED: NiCARDipine HCL INJ 2.5 MG/ML 10 ML AMP ONE (15:32)
[2017-08-06] MEDS ORDERED: FENTANYL CITRATE INJ 50 MCG/1 ML 2 ML VIAL ONE (15:32)
[2017-08-06] MEDS ORDERED: MIDAZOLAM HCL 1 MG/ML 2ML VIAL ONE (15:32)
[2017-08-06] MEDS ORDERED: NITROGLYCERIN/D5W 100MCG/ML 20ML SYR ONE (15:32)
[2017-08-06] MEDS ORDERED: HEPARIN SOD (PORCINE) 1000 UNIT/ML 10 ML VIAL ONE (15:32)
[2017-08-06] MEDS ORDERED: LIDOCAINE HCL 1% 20 ML VIAL ONE (15:34)
--- NOTE | 2017-08-06 15:52 | MYOCARDIAL PERFUSION SCAN ---
NUCLEAR STRESS TEST STUDY TITLE: ONE-DAY NUCLEAR MEDICINE TECHNETIUM-99M CARDIOLITE MYOCARDIAL PERFUSION STUDY. INDICATION: Left arm/leg numbness in the setting of coronary artery disease with known prior anterior SD and occluded proximal RCA with left to right collaterals. BASELINE EKG: Showed sinus bradycardia at a ventricular rate of 45. There was suggestion of old septal infarct. No significant ST abnormalities. Stress EKG: Heart rate jourdan. The patient exercised 9 minutes and 6 seconds on a Raheel protocol achieving 10.4 METs and 81% of maximum predicted heart rate. With post-exercise, he was given Lexiscan to achieve a diagnostic study. With exercise and Lexiscan, there was no significant stress induced EKG changes. There were no arrhythmias. Blood pressure jourdan from 158/77 to 180/90. With exercise, the patient had mild lightheadedness at peak stress and endorsed some chest pain/rib pain which he states felt more like a muscle pull. TECHNIQUE: For the stress portion of the study, 32 mCi of technetium-99m Cardiolite IV was injected at 1350 p.m. on 08/06/2017. Fifteen minutes following the injection, imaging of the heart was performed in multiple projections. For the rest portion of the study, 11 mCi of technetium-99m Cardiolite was injected IV at 11:40 a.m. One hour following the injection, imaging of the heart was performed in the same projections. FINDINGS: The rotating raw images were reviewed in detail. There was vertical motion both on stress and rest. There was a small diaphragmatic attenuation shadow on both stress and rest. There was mild gut/liver uptake impacting the inferior imaging border of the heart. There was no significant extracardiac pathologic uptake. The short axis, vertical long axis, horizontal long axis images were reviewed in detail. There was a moderate sized, mild in severity perfusion defect involving the base to mid inferior and inferoseptal segments which was primarily reversible. Summed difference score of approximately 6. LV size was normal with an end-diastolic volume of 97 mL. The calculated ejection fraction was 54% with inferior/inferoseptal hypokinesis at the base. IMPRESSION AND PLAN: 1. Positive exercise/Lexiscan stress nuclear myocardial perfusion study for ischemia in RCA distribution. Summed difference score of 6. 2. Normal negative exercise stress EKG for ischemia at 81% maximum predicted heart rate. 3. Above average functional capacity, exercised 9 minutes, achieving 10.4 METs. There was normal hemodynamic response to exercise. There was a mild lightheadedness/left-sided chest discomfort at peak exercise. 4. LV size was normal and LV function was normal with a calculated EF of 54%. There was inferior/inferoseptal hypokinesis at the base.
--- NOTE | 2017-08-06 16:45 | Pre Sedation Assessment ---
Pre Sedation Assessment General Date of Sedation: Aug 06, 2017. Vital Signs Past 12 Hours Date Time Temp Pulse Resp B/P (MAP) Pulse Ox O2 Delivery O2 Flow Rate FiO2 08/06/17 16:40 48 18 101/66 (78) 98 Room Air 08/06/17 16:30 46 18 137/90 (106) 98 Room Air 08/06/17 15:30 36.8 81 141/81 (101) 99 Room Air 08/06/17 12:00 Room Air 08/06/17 11:27 36.9 46 20 150/74 (99) 98 Room Air 157/84 (108) 08/06/17 08:00 Room Air 08/06/17 07:37 36.5 43 18 156/75 (102) 98 Room Air Review Cardiovascular: regular rate, rhythm, no edema Lungs: chest non-tender, lungs clear Pre-Sedation Airway Assessment Smoking Status: Former Smoker Hx of Sleep Apnea: No Hx of difficult intubation: No Short Thick Neck: No Thyro-mental Distance: > 3 Finger Breadths Oral Cavity: WNL Mallampati Classification: Class II ASA Classification: Class III NPO Status Date of Last Intake of Fluids: Aug 06, 2017 Time of Last Intake of Fluids: 0000 Date of Last Intake of Solids: Aug 06, 2017 Time of Last Intake of Solids: 0000 Procedure Planning Contraindications for Sedation: None Current Medications Reviewed: Yes Notes The planned sedation has been discussed with the patient. Informed Consent was obtained. I have identified the patient, determined the appropriateness of sedation and have assessed the patient immediately prior to the procedure. All medicine(s) and interventions are by my order.
--- NOTE | 2017-08-06 16:46 | Post Sedation Assessment ---
Post Sedation Assessment General Date of Sedation Aug 06, 2017. Vital Signs: Vital Signs Past 12 Hours Date Time Temp Pulse Resp B/P (MAP) Pulse Ox O2 Delivery O2 Flow Rate FiO2 08/06/17 16:40 48 18 101/66 (78) 98 Room Air 08/06/17 16:30 46 18 137/90 (106) 98 Room Air 08/06/17 15:30 36.8 81 141/81 (101) 99 Room Air 08/06/17 12:00 Room Air 08/06/17 11:27 36.9 46 20 150/74 (99) 98 Room Air 157/84 (108) 08/06/17 08:00 Room Air 08/06/17 07:37 36.5 43 18 156/75 (102) 98 Room Air Post Procedure Recovery Score Activity: (2) Moves 4 extremities * Respiration: (2) Deep breath/cough Circulation: (2) +/-20% PreAnes Value Consciousness: (2) Fully Awake Oxygen Saturation: (2) > 92% On Room Air Post Anesthesia Score: 10 Discharge Sedation Level of Care: Fast Track Phase II Post Sedation Plan On clinical assessment, the patient appears to have tolerated the sedation without complications. Patient is recovering as anticipated. Patient will continue to be monitored by nursing and may be discharged when sedation discharge criteria are met per below protocol. Upon Completions of procedure and additional 15 minutes continue every 5 minute vital signs and the P.A.R. score; then discharge to a Phase I or Fast Track to Phase II per the following guidelines: * Discharge Patient to appropriate Phase II area if PAR is 8 or greater or return to pre- procedure baseline. The post - procedure orders will be as directed. * If PAR score is less than 8 or not return to pre-procedure baseline then patient will follow Phase I monitoring till PAR is reached for Phase II. The Phase I may be done in procedure room or may call to secure a Phase I area. * If naloxone or flumazenil are used for reversal, hold in Phase I for an additional 60 -120 minutes before discharge to Phase II. Please call the Sedation Physician to re-evaluate and complete post-note for discharge to Phase II area. Do NOT discharge from procedure sedation or Phase 1 until post- sedation evaluation note is complete by procedure /sedation MD Sedation Discharge Instructions to be given to the patient at discharge to home.
[2017-08-06] MEDS ORDERED: SODIUM CHLORIDE 0.9% 1000ML 750 ML IV SCH (17:09)
--- NOTE | 2017-08-06 17:09 | Cardiac Catheterization ---
Procedure Note Procedure Date Aug 06, 2017. 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 Findings: LM - Angiographically normal LAD - Diffuse 30% proximal disease after 1st diagonal; 40-50% focal mid segment stenosis just proximal to prior stent - remainder of stent widely patent; distal LAD tortuous with luminal irregularities. Provides left to right collaterals to PDA primarily via 2nd septal. - Moderate caliber 1st diagonal with 30% ostial stenosis Circumflex - Moderate caliber vessel, gives off large high 1st OM with luminal irregularities. Distal circumflex with minimal disease and provides left to right collaterals to R-PAV/PLB. RCA - 100% chronic total occlusion proximally. PLB fills first via collaterals from circumflex, PDA fills via septal collaterals. RCA fills retrograde back to proximal segment. LVEDP - 5 Arterial Closure: TR Band Summary: 1. 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 Fills distally from left to right collaterals. 2. New moderate 40-50% mid LAD stenosis just proximal to prior stent 3. Normal intracardiac filling pressure Recommendations: Maximize antianginal therapy, ASCVD risk factor modification for chronic stable disease. snf if persistent symptoms consider FFR of mid LAD. RCA LASER OPERATOR also appears amenable to LASER OPERATOR-PCI if refractory symptoms Consider future procedures via femoral artery/left radial due to right brachial artery disease limiting current procedure to 4Fr catheters. Hemodynamics Rest Ao: 126/65/93 Final Ao: 114/61/84 LV: 131/5 Recommendations Medical therapy and/or Counseling Specimens None Radiation Exposure (mGy) 1123 Contrast (mls) 45 Fluids (cc crystalloids) 75 Drains none Anesthesia moderate Procedural Complication(s) None Disposition PCU ACC Data Cardiac Status Clinical evaluation leading to the procedure CAD Presntation: Unstable angina, Positive Stress Test Anginal Classification: CCS III Heart Failure: No, NYHA Class: CCS I Cardiogenic Shock w/in 24Hrs: No Cardiac Arrest w/in 24Hrs: No Imaging studies past 6 months: Yes Stress studies past 6 months: Yes Stress Testing w/SPECT MPI: Yes - Positive, Risk/Extent of Ischemia ( Intermediate) Closure Device Percutaneous Entry Location: Radial Closure Device: Radial Band Recommendations: Medical therapy and/or Counseling Intraprocedure Events Significant Dissection: No Perforation: No
[2017-08-06] MEDS ORDERED: ACETAMINOPHEN 325 MG TAB PO PRN (17:15)
--- NOTE | 2017-08-06 17:57 | Progress Note ---
Medicine Progress Note Date & Time of Visit: Aug 06, 2017 at 14:31. Subjective Pt was seen and examined Lying in bed with no distress Pt said that his symptoms resolved now He said that he feels fine He had a nuclear stress test and cardiac cath done today by dr. Baron Denies any chest pain, palpitation, dizziness and SOB Objective Last 8 Hrs Date Time Temp Pulse Resp B/P (MAP) Pulse Ox O2 Delivery O2 Flow Rate FiO2 08/06/17 12:00 Room Air 08/06/17 11:27 36.9 46 20 150/74 (99) 98 Room Air 157/84 (108) 08/06/17 08:00 Room Air 08/06/17 07:37 36.5 43 18 156/75 (102) 98 Room Air Physical Exam: General- No acute distress Head- atraumatic Eyes- PERRL, EOMI ENT- oropharynx clear Neck- supple, no JVD Lungs- clear to auscultation Heart- regular rhythm; no murmur Abdomen- normal bowel sounds, soft Extremities-no calf tenderness Neuro- alert, oriented x 3; PERRL, EOMI Skin- warm & dry Laboratory Results: Last 24 Hours Test 08/05/17 19:16 08/06/17 00:38 08/06/17 07:25 White Blood Count 5.13 K/uL 4.31 K/uL Red Blood Count 4.85 M/uL 4.64 M/uL Hemoglobin 15.4 g/dL 14.8 g/dL Hematocrit 45.6 % 43.5 % Mean Corpuscular Volume 94.0 fL 93.8 fL Mean Corpuscular Hemoglobin 31.8 pg 31.9 pg Mean Corpuscular Hemoglobin Concent 33.8 g/dl 34.0 g/dl Platelet Count 226 K/uL 220 K/uL Mean Platelet Volume 10.0 fL 10.1 fL Neutrophils (%) (Auto) 36.8 % Lymphocytes (%) (Auto) 46.2 % Monocytes (%) (Auto) 10.3 % Eosinophils (%) (Auto) 5.7 % Basophils (%) (Auto) 0.6 % Neutrophils # (Auto) 1.89 K/uL Lymphocytes # (Auto) 2.37 K/uL Monocytes # (Auto) 0.53 K/uL Eosinophils # (Auto) 0.29 K/uL Basophils # (Auto) 0.03 K/uL RDW Standard Deviation 43.7 fL 43.4 fL RDW Coefficient of Variation 12.7 % 12.8 % Immature Granulocyte % (Auto) 0.4 % Immature Granulocyte # (Auto) 0.02 K/uL Sodium Level 137 mmol/L 139 mmol/L Potassium Level 3.6 mmol/L 4.1 mmol/L Chloride Level 104 mmol/L 108 mmol/L Carbon Dioxide Level 30 mmol/L 26 mmol/L Anion Gap 4.0 mmol/L 5.0 mmol/L Blood Urea Nitrogen 10 mg/dl 9 mg/dl Creatinine 1.06 mg/dl 0.94 mg/dl Est Creatinine Clear Calc Drug Dose 78.4 ml/min 89.0 ml/min Estimated GFR () 85.5 98.9 Estimated GFR (Non- 73.8 85.3 BUN/Creatinine Ratio 9.3 9.6 Random Glucose 93 mg/dl 89 mg/dl Calcium Level 8.6 mg/dl 8.3 mg/dl Total Creatine Kinase 278 U/L 158 U/L Creatine Kinase MB 7.2 ng/ml Creatine Kinase MB Ratio 2.6 Troponin I < 0.015 ng/ml < 0.015 ng/ml < 0.015 ng/ml Magnesium Level 2.4 mg/dl Triglycerides Level 143 mg/dl Cholesterol Level 174 mg/dl HDL Cholesterol 38 mg/dl LDL Cholesterol, Calculated 107 mg/dl VLDL Cholesterol, Calculated 29 mg/dl Cholesterol/HDL Ratio 4.6 Hepatitis C Antibody Screen NEG Assessment & Plan Left UE/Left Leg Heaviness/Numbness: Pt said that symptoms similar to when he had his [place] R/O ACS Risk factors: H/O CAD, HLP, Former Tobacco use disorder, +family history Troponin x3 Negative EKG shows no acute ischemia changes CXR showed no acute cardiopulmonary disease. Cardiology on board Nuclear stress test Positive exercise/Lexiscan stress nuclear myocardial perfusion study for ischemia in RCA distribution. Normal negative exercise stress EKG for ischemia at 81% maximum predicted heart rate. Case discussed with cardiology and Planned for Cardiac cath today cardiac cath Severe single vessel coronary artery disease. 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 New moderate 40-50% mid LAD stenosis just proximal to prior stent cardiology recommended to continue Plavix and aspirin Metoprolol decreased to 12.5 mg daily. Statin Intolerance OK from cardiology to discharge home today Follow up with Dr. Lamb in 1 week Sinus Bradycardia Asymptomatic Metoprolol decreased to 12.5 mg Continue monitor BP HTN Metoprolol decreased to 12.5 mg cardio recommended to start on amlodipine 5 mg daily Continue monitor BP CAD s/p AVNI to LAD Cardiac cath done today showed new moderate 40-50% mid LAD stenosis just proximal to prior stent Continue plavix and aspirin and metoprolol H/O Apical thrombus previously on Xarelto Stable Hyperlipidemia: H/O statin Intolerance causes Rhabdo On fish oil at home GERD: continue PPI Chronic Allergic rhinitis: continue home meds DVT Px SCDs Code Status Full Code Disposition Discharge home today Follow up with cardiology in 1 week (Dr. Lamb's office will call you for the appointment) Follow up with primary care provider Dr. Engle (Dr. Olivo's colleague) on 08/10 @ 10:05 AM Monitor blood pressure Current Inpatient Medications: Current Inpatient Medications Medications (Trade) Dose Ordered Sig/Leia Route Start Time Stop Time Status Last Admin Dose Admin Nitroglycerin (Nitrostat Tab) 0.4 mg Q5M PRN SL 08/05/17 19:15 09/04/17 19:14 Acetaminophen (Tylenol Tab) 650 mg Q4H PRN PO 08/05/17 21:30 09/04/17 21:29 Ondansetron HCl (Zofran Inj) 4 mg Q6H PRN IV 08/05/17 21:30 09/04/17 21:29 Nitroglycerin (Nitrostat Tab) 0.4 mg UD PRN SL 08/05/17 21:30 09/04/17 21:29 Aspirin (Ecotrin Tab) 81 mg QAM PO 08/06/17 09:00 09/05/17 08:59 08/06/17 07:54 81 MG Clopidogrel Bisulfate (plAVix TAB) 75 mg QAM PO 08/06/17 09:00 09/05/17 08:59 08/06/17 07:55 75 MG Lisinopril (Zestril Tab) 10 mg QAM PO 08/06/17 09:00 09/05/17 08:59 08/06/17 07:54 10 MG Metoprolol Succinate (Toprol Xl Tab) 12.5 mg QAM PO 08/06/17 09:00 09/05/17 08:59 Pantoprazole Sodium (Protonix Tab) 40 mg QAM PO 08/06/17 09:00 09/05/17 08:59 08/06/17 07:55 40 MG Miscellaneous Information (Order Awaiting Action) 1 ea QS N/A 08/06/17 08:00 09/05/17 07:59 Miscellaneous (Iv Fluids Completed) 1 ea PRN PRN N/A 08/05/17 21:45 08/05/18 21:44
[2017-08-06] MEDS ORDERED: NRV5 PO (18:01)
[2017-08-06] MEDS ORDERED: TPRSR25 PO (18:01)
--- NOTE | 2017-08-06 18:21 | Discharge Instructions ---
Discharge Instructions Date of Service Aug 06, 2017. Admission Reason for Admission: Left Arm Numbness, Left Sided Numbness Discharge Discharge Diagnosis / Problem: CAD/ Bradycardia/ Chest discomfort Discharge Goals Goal(s): Decrease discomfort, Improve function, Improve disease control Activity Recommendations Activity Limitations: resume your previous activity (as tolerated ) . Instructions / Follow-Up Instructions / Follow-Up Follow up with cardiology in [address] Lamb (Dr. Lamb's office will call you for the appointment) Follow up with primary care provider Dr. Engle (Dr. Olivo's colleague) on 08/10 @ 10:05 AM Monitor blood pressure Medication changes Metoprolol decreased to 12.5 mg daily * Only do light and easy activities for the next 2 to 3 days. Ask for help with chores and errands while you recover. * No strenuous deep bending or flexing of the wrist for at least 3 days (i.e. rising from a chair or bed bending your wrist, tennis, swimming, golfing, weight lifting, bicycling). * No driving for 1 to 2 days * Avoid heavy lifting, pushing, or pulling more than 5 lbs in the next 2-3 days * Drink 6 to 8 glasses of water a day. This is to help flush the contrast dye out of your body. * Check your incisions daily for signs of infection. These include redness, swelling, and drainage. It is normal to have a small bruise or bump where the catheter was inserted. A bruise that is getting larger is not normal and should be reported to your doctor. . * Do not swim or take baths until the doctor says it's OK. You can shower the day after the procedure. * Keep area clean and dry When to seek medical care Call your doctor immediately if you have any of the following: * Chest pain * Constant or increasing pain or numbness in your hand (where the catheter was inserted) * Fever of 100.4?F (38.0?C) or higher * Symptoms of infection (redness, swelling, drainage, or warmth at the incision site) * Shortness of breath * Bleeding, bruising, or a lot of swelling where the catheter was inserted * Blood in your urine * Black or tarry stools * Any unusual bleeding Current Hospital Diet Patient's current hospital diet: AHA Diet (Heart Healthy) Discharge Diet Recommended Diet: AHA Diet (Heart Healthy) Pending Studies Studies pending at discharge: no Laboratory Results Lipid Panel Test 08/06/17 07:25 Range/Units Triglycerides Level 143 0-150 mg/dl Cholesterol Level 174 0-200 mg/dl HDL Cholesterol 38 mg/dl Cholesterol/HDL Ratio 4.6 LDL Cholesterol, Calculated 107 mg/dl Medical Emergencies . Who to Call and When: Medical Emergencies: If at any time you feel your situation is an emergency, please call 911 immediately. . Non-Emergent Contact Non-Emergency issues call your: Primary Care Provider, Woods Rider . . "Provider Documentation" section prepared by Roslyn Jha. .
--- NOTE | 2017-08-07 22:17 | Discharge Summary ---
Discharge Summary Date of Service Aug 07, 2017. Discharge Summary Admission Date: Aug 05, 2017 at 21:29 Discharge Date: Aug 06, 2017 Discharge Disposition: Home Principal Diagnosis: Left UE/Left Leg Heaviness/Numbness Secondary Diagnoses/Problems: HTN H/O Apical thrombus Sinus Bradycardia GERD Hyperlipidemia: CAD Chronic Allergic rhinitis: Procedures: Cardiac cath Medication Reconciliation New Medications: Amlodipine Besylate (Amlodipine Besylate) 5 Mg Tab 5 MG PO DAILY for 30 Days, #30 TAB Metoprolol Succinate (Metoprolol Succinate ER) 25 Mg Tabcr 12.5 MG PO QAM for 30 Days Continued Medications: Aspirin (Aspirin Ec) 81 Mg Tab 81 MG PO QAM Clopidogrel (Plavix) 75 Mg Tab 75 MG PO QAM, TAB Fexofenadine-Pseudoephedrine (Summer-D 24 Hour Allergy) 1 Tab Tab 1 TAB PO DAILY Lisinopril (Lisinopril) 10 Mg Tab 10 MG PO QAM [place]-3 Fatty Acids (Fish Oil) 1,000 Mg Cap 1000 MG PO QAM Pantoprazole (Protonix) 40 Mg Tab 40 MG PO QAM, #30 TAB Discontinued Medications: Metoprolol Succ (Toprol Xl) (Toprol-Xl) 25 Mg Tabcr 25 MG PO QAM, #30 TAB Admission Information HPI (per Admitting provider): Patient is a 66-year-old male with past medical history of CAD s/p AVNI to LAD, apical thrombus, former tobacco use, hyperlipidemia, GERD, statin induced rhabdomyolysis, allergic rhinitis and other problems presents with history of left wrist and left leg numbness/heaviness and tingling started today. He states "It feels funny" and had similar symptoms when he had ID last year. He reports having indigestion after he ate some vegetables and was burping a lot today. He is concerned that he might have another ID and so presented to ED for further evaluation. Denies any history of chest pain, SOB, palpitations, orthopnea, PND, dizziness, pedal edema, diaphoresis, cough, fever, chills, fall , trauma, LOC, headache, weakness, blurry/double vision, slurred speech, facial deformity, nausea, vomiting, abdominal pain, diarrhea, dysuria, recent travel, sick contact, recent change in medications. Patient exercises 3 times a week and denies any dyspnea on exertion or chest pain. Patient received 4 baby aspirins in ED and shows no change of his symptoms. 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 Cardiology on board Nuclear stress test Positive exercise/Lexiscan stress nuclear myocardial perfusion study for ischemia in RCA distribution. Normal negative exercise stress EKG for ischemia at 81% maximum predicted heart rate. Case discussed with cardiology and Planned for Cardiac cath today cardiac cath Severe single vessel coronary artery disease. 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 New moderate 40-50% mid LAD stenosis just proximal to prior stent cardiology recommended to continue Plavix and aspirin Metoprolol decreased to 12.5 mg daily. Statin Intolerance OK from cardiology to discharge home today Follow up with Dr. Lamb in 1 week Sinus Bradycardia Asymptomatic Metoprolol decreased to 12.5 mg Continue monitor BP HTN Metoprolol decreased to 12.5 mg cardio recommended to start on amlodipine 5 mg daily Continue monitor BP CAD s/p AVNI to LAD Cardiac cath done today showed new moderate 40-50% mid LAD stenosis just proximal to prior stent Continue plavix and aspirin and metoprolol H/O Apical thrombus previously on Xarelto Stable Hyperlipidemia: H/O statin Intolerance causes Rhabdo On fish oil at home GERD: continue PPI Chronic Allergic rhinitis: continue home meds DVT Px SCDs Code Status Full Code Disposition Discharge home today Follow up with cardiology in 1 week (Dr. Lamb's office will call you for the appointment) Follow up with primary care provider Dr. Engle (Dr. Olivo's colleague) on 08/10 @ 10:05 AM Monitor blood pressure Total time spent on discharge = 35 minutes This includes examination of the patient, discharge planning, medication reconciliation, and communication with other providers. Discharge Instructions DI: Medical v5 Discharge Instructions Date of Service Aug 06, 2017. Admission Reason for Admission: Left Arm Numbness, Left Sided Numbness Discharge Discharge Diagnosis / Problem: CAD/ Bradycardia/ Chest discomfort Discharge Goals Goal(s): Decrease discomfort, Improve function, Improve disease control Activity Recommendations Activity Limitations: resume your previous activity (as tolerated ) . Instructions / Follow-Up Instructions / Follow-Up Follow up with cardiology in [address] Lamb (Dr. Lamb's office will call you for the appointment) Follow up with primary care provider Dr. Engle (Dr. Olivo's colleague) on 08/10 @ 10:05 AM Monitor blood pressure Medication changes Metoprolol decreased to 12.5 mg daily * Only do light and easy activities for the next 2 to 3 days. Ask for help with chores and errands while you recover. * No strenuous deep bending or flexing of the wrist for at least 3 days (i.e. rising from a chair or bed bending your wrist, tennis, swimming, golfing, weight lifting, bicycling). * No driving for 1 to 2 days * Avoid heavy lifting, pushing, or pulling more than 5 lbs in the next 2-3 days * Drink 6 to 8 glasses of water a day. This is to help flush the contrast dye out of your body. * Check your incisions daily for signs of infection. These include redness, swelling, and drainage. It is normal to have a small bruise or bump where the catheter was inserted. A bruise that is getting larger is not normal and should be reported to your doctor. . * Do not swim or take baths until the doctor says it's OK. You can shower the day after the procedure. * Keep area clean and dry When to seek medical care Call your doctor immediately if you have any of the following: * Chest pain * Constant or increasing pain or numbness in your hand (where the catheter was inserted) * Fever of 100.4?F (38.0?C) or higher * Symptoms of infection (redness, swelling, drainage, or warmth at the incision site) * Shortness of breath * Bleeding, bruising, or a lot of swelling where the catheter was inserted * Blood in your urine * Black or tarry stools * Any unusual bleeding Current Hospital Diet Patient's current hospital diet: AHA Diet (Heart Healthy) Discharge Diet Recommended Diet: AHA Diet (Heart Healthy) Pending Studies Studies pending at discharge: no Laboratory Results Lipid Panel Test 08/06/17 07:25 Range/Units Triglycerides Level 143 0-150 mg/dl Cholesterol Level 174 0-200 mg/dl HDL Cholesterol 38 mg/dl Cholesterol/HDL Ratio 4.6 LDL Cholesterol, Calculated 107 mg/dl Medical Emergencies . Who to Call and When: Medical Emergencies: If at any time you feel your situation is an emergency, please call 911 immediately. . Non-Emergent Contact Non-Emergency issues call your: Primary Care Provider, Cloth Inspector . . "Provider Documentation" section prepared by Roslyn Jha. . Additional Copies To Eric Olivo D.O.
== END 2017-08-06 19:05 | disposition home or self-care (01) ==
LOC: C.EDB 18:42 → C.MS2W 21:29 → ENRESERV 22:40 → CANRESERV 22:40 → ENRESERV 23:01 → C.2T 08-06 16:56
PROVIDERS: ADMIT Internal Medicine; ATTEND Internal Medicine
DX: I25.10 Atherosclerotic heart disease of native coronary artery without angina pectoris (principal); I25.82 Chronic total occlusion of coronary artery; M79.602 Pain in left arm; N40.0 Benign prostatic hyperplasia without lower urinary tract symptoms; K21.9 Gastro-esophageal reflux disease without esophagitis; I10 Essential (primary) hypertension; E78.5 Hyperlipidemia, unspecified; Z82.5 Family history of asthma and other chronic lower respiratory diseases; Z83.3 Family history of diabetes mellitus; Z82.49 Family history of ischemic heart disease and other diseases of the circulatory system; Z84.1 Family history of disorders of kidney and ureter; Z79.82 Long term (current) use of aspirin; Z79.02 Long term (current) use of antithrombotics/antiplatelets; Z79.899 Other long term (current) drug therapy; I25.2 Old myocardial infarction; Z87.891 Personal history of nicotine dependence